=== PATIENT | male | born 1945 | race Caucasian/White ===

== ENCOUNTER 2020-09-01 12:57 | Emergency (ER) | payer MEDICARE, SELFPAY ==
[2020-09-01 13:09] VITALS: BP 161/102; PULSE 74; RESP 16; TEMP 35.9; O2SAT 98
--- NOTE | 2020-09-01 13:23 | ED.BACK ---
HPI - Back Pain/Injury General Chief Complaint: Back Pain/Injury Stated Complaint: lower back pain Time Seen by Provider: 09/01/20 13:09 Source: patient and RN notes reviewed Mode of arrival: ambulatory Limitations: no limitations History of Present Illness HPI Narrative: Patient presents today complaining of left-sided low back pain radiating to the left thigh x3 days. He reports visualizing spasms to the lateral thigh this morning while he was sitting in his chair at home. Pain increases with movement. Denies numbness or tingling in the genitals or legs. Denies loss of bowel or bladder control. Currently rates pain 05/18 and has been taking naproxen without much relief. Denies recent injury or trauma. MD elicited complaint: back pain Related Data Home Medications Medication Instructions Recorded Confirmed lisinopril 09/01/20 naproxen 09/01/20 Allergies Allergy/AdvReac Type Severity Reaction Status Date / Time Penicillins Allergy Mild Unverified 01/06/19 09:31 mushroom Allergy Unknown HIVES Verified 01/06/19 09:31 Review of Systems Review of Systems: Narrative: CONSTITUTIONAL: Denies body aches, fever, chills, or sweats. EYES: Denies visual changes, redness, or discharge. ENT: Denies rhinorrhea, congestion, sore throat, or otalgia. CARDIOVASCULAR: Denies chest pain, palpitations, or edema. RESPIRATORY: Denies cough or dyspnea. GASTROINTESTINAL: Denies abdominal pain, nausea, vomiting, or diarrhea. GENITOURINARY: Denies dysuria or hematuria. SKIN: Denies rash, itching, or wounds. MUSCULOSKELETAL: Denies joint pain, or myalgia. + Back pain NEUROLOGIC: Denies headache, numbness, tingling, or weakness. PSYCH: Denies depression or anxiety. [facility] Past Medical History Medical History (Updated 09/01/20 @ 15:14 by Liya Lynch, CUST[employer]S APPRAISER, ) Hypertension Rheumatoid arthritis Comments At time of signature, I have reviewed and agree with nursing past medical, surgical, social and family history unless otherwise noted. Please see nursing chart for further information. There is no relevant family history pertinent to the presenting complaint Exam Narrative: Exam Narrative: GENERAL: Well-appearing, well-nourished, and in no acute distress. HEAD: Normocephalic, atraumatic. EYES: EOMI. No redness or drainage. Conjunctivae normal. ENT: Mucous membranes pink and moist. NECK: Normal AROM. CHEST: No respiratory distress. MUSCULOSKELETAL: No bony tenderness of the spine. Left lumbar paraspinal muscle tenderness. Left SI joint tenderness, extending to the lateral hip and thigh. Distal sensation intact. Saddle sensation intact. Capillary refill normal. Pedal pulses normal. Foot push and pulls equal and strong. EXTREMITIES: Normal range of motion. No edema. SKIN: Warm, dry, no rash. Capillary refill normal. Normal skin turgor. NEURO: No focal deficits. Alert and oriented x3. Gait steady. PSYCH: Normal affect. No signs of depression or anxiety. Course Vital Signs Vital signs: Vital Signs Temperature 96.6 F L 09/01/20 13:09 Pulse Rate 74 09/01/20 13:09 Respiratory Rate 16 09/01/20 13:09 Blood Pressure 161/102 H 09/01/20 13:09 Pulse Oximetry 98 09/01/20 13:09 Temperature 96.6 F L 09/01/20 13:09 Pulse Rate 74 09/01/20 13:09 Respiratory Rate 16 09/01/20 13:09 Blood Pressure 161/102 H 09/01/20 13:09 Pulse Oximetry 98 09/01/20 13:09 Reviewed. Pt has been instructed to follow up with his PCP regarding his elevated blood pressure today. MDM - Back Pain/Injury Differential Diagnosis Differential diagnosis: Likely lumbar radiculopathy, sciatica, strain of lumbar region and other (Bulging disc, spinal stenosis) Critical Care Time Critical Care Time Critical Care Time: No Discharge Plan Discharge Clinical Impression: Low back pain Qualifiers: Chronicity: acute Back pain laterality: left Sciatica presence: with sciatica Sciatica laterality: sciatica of left side Jamie
== END 2020-09-01 13:35 | disposition home or self-care (01) ==
PROVIDERS: Emergency Provider Nurse Practitioner; PCP Family Medicine
DX: M54.42 Lumbago with sciatica, left side (principal); I10 Essential (primary) hypertension; M06.9 Rheumatoid arthritis, unspecified
CPT/HCPCS: 99213; G0463

== ENCOUNTER → 2020-09-07 13:23 | Outpatient (CLI) | payer MEDICARE, SELFPAY ==
--- NOTE | ~2020-09-07 | XR_ITS ---
XR lumbar spine 2-3V DATE: 09/07/2020 14:00 INDICATION: Low back pain, left lower extremity radiculopathy TECHNIQUE: AP, lateral, coned lateral lumbosacral views COMPARISON: 05/03/2015 lumbar spine FINDINGS: Diffuse osteopenia. There is grade 1 anterolisthesis at L2-3, also present on 05/03/2015. No fracture or bone destruction is evident. The included lower thoracic and lumbar pedicles are intac t. There is mild degenerative disc disease, relatively sparing L5-S1. The sacroiliac joints are intact. IMPRESSION: Diffuse osteopenia Mild degenerative change Stable mild grade 1 anterolisthesis at L2-3 Reviewed, dictated and finalized at location A.
== END ==
PROVIDERS: PCP Family Medicine; Visit Provider Family Medicine
DX: M54.16 Radiculopathy, lumbar region (principal); M85.88 Other specified disorders of bone density and structure, other site
CPT/HCPCS: 72100

== ENCOUNTER 2022-03-25 22:27 | Emergency (ER) | payer MEDICARE, SELFPAY ==
--- NOTE | ~2022-03-25 | XR_ITS ---
EXAMINATION: XR toe 2nd RT min 2V DATE: 03/25/2022 23:04 INDICATION: Right second toe injury TECHNIQUE: Dorsal plantar, lateral and 2 oblique views of the right second toe were obtained. COMPARISON: None FINDINGS: There is dorsal dislocation of the second distal phalanx with some proximal migration and overriding of the dorsal aspect of the head of the middle phalanx. No fracture identified. There appears to be h allux valgus along with hammertoe deformities at least the second and third toes. Advanced arthritis with erosive change at the first-fourth metatarsophalangeal joint consistent with provided history of rheumatoid arthritis. Additional erosions with less severe arthritis at the second proximal interpha langeal joint and at a few joints in the midfoot. IMPRESSION: 1. Dorsal dislocation of the right second distal interphalangeal joint without evident fracture. 2. Advanced arthritis with associated erosions at several of the metatarsophalangeal joints consisten t with provided history of rheumatoid arthritis. Reviewed, dictated and finalized at location A. IMPRESSION: 1. Dorsal dislocation of the right second distal interphalangeal joint without evident fracture. 2. Advanced arthritis with associated erosions at several of the metatarsophala ngeal joints consistent with provided history of rheumatoid arthritis.
[2022-03-25 22:48] VITALS: BP 130/78; PULSE 60; RESP 16; TEMP 36.1; O2SAT 100
[2022-03-26] MEDS: TETANUS,DIPHTHERIA,AC PERTUSSIS ADULT (0.5 ML) BOOSTRIX IM (03:49)
--- NOTE | 2022-03-26 05:29 | PC.NURSE ---
vrbo dr pérez - oren 4mg po odt norco 5/325 po stat
[2022-03-26] MEDS: ONDANSETRON HCL ODT 4 MG TABLET PO (05:34)
[2022-03-26] MEDS: HYDROcodone/acetaminophen (*CRX) 5-325 MG TABLET 1 TAB PO (05:34)
--- NOTE | 2022-03-26 06:02 | ED.LOWEXIN ---
HPI - Extremity Injury (Lower) General Chief Complaint: Extremity Injury, Lower Stated Complaint: toe broken Time Seen by Provider: 03/26/22 03:15 Source: patient and RN notes reviewed Mode of arrival: ambulatory Limitations: no limitations History of Present Illness HPI Narrative: This is a 76 year old female who presents for evaluation of right foot laceration. Patient states accidentally missed a step and got his toe caught. He is complaining of right second toe pain . He has a wound on under his toe that he is unable to stop bleeding. He denies hitting his head or LOC. He is unsure of his last tetanus shot. Related Data Home Medications Medication Instructions Recorded Confirmed naproxen 09/01/20 01/28/22 coenzyme [id number] E 100 mg-100 cap PO 01/14/21 01/28/22 unit capsule meclizine 25 mg tablet 25 mg PO BID PRN 01/14/21 01/28/22 Allergies Allergy/AdvReac Type Severity Reaction Status Date / Time Penicillins Allergy Mild Unknown Unverified 03/26/22 05:44 mushroom Allergy Unknown HIVES Verified 03/26/22 05:44 Review of Systems Review of Systems: All systems reviewed & are unremarkable except as noted in HPI and below PMFSH Past Medical History Medical History Hypertension Malignant neoplasm of prostate Rheumatoid arthritis Family History Family History Father Lung cancer Mother Heart disease Hypertension Social History Social History Smoking status: Never smoker Tobacco type: cigarettes Second hand tobacco smoke exposure: No Smoking end date: 11/09/70 Alcohol intake: current Drinks per week: 3 Substance use: never Substance use type: does not use Gender identity (if verbalized by the patient): Male Sexual Orientation (if Verbalized by the Patient): Straight or Heterosexual Exam Const: General: no acute distress and alert Orientation/consciousness: patient oriented x3 Eyes: EOM: EOMs intact bilaterally Resp: Effort & Inspection: normal respiratory effort Neuro: General: patient oriented x3 and moves all extremities Extrem: Other: patient with rheumatoid arthritis , patient with swan deformities to toes, there is 1 cm laceration under right 2nd toe and 1 cm laceration under right 3rd toe. Right second toe has distal deformity according to patient Psych: Mental Status: mental status grossly normal Affect: normal affect Course Reevaluation(s) Reevaluation #1: I repaired patient;s 2 toe lacerations. He was given tetanus. I reduced right second toe deformity Date: 03/26/22 Time: 06:07 Vital Signs Vital signs: Vital Signs Temperature 97 F L 03/25/22 22:48 Pulse Rate 60 03/25/22 22:48 Respiratory Rate 16 03/25/22 22:48 Blood Pressure 130/78 03/25/22 22:48 Pulse Oximetry 100 03/25/22 22:48 Temperature 97.7 F 03/26/22 06:12 Pulse Rate 52 L 03/26/22 06:12 Respiratory Rate 16 03/25/22 22:48 Blood Pressure 128/81 03/26/22 06:12 Pulse Oximetry 97 03/26/22 06:12 Procedures Laceration Laceration 1: Date: 03/26/22 Time: 06:08 Site: other (second toe) Side (If applicable): right Size (cm): 1 Description: flap Depth: simple, single layer Local Anesthetic: bupivacaine 0.25% ====== Skin Level ====== ====== Subcutaneous Layer ====== ====== Muscle Layer ====== ====== Tendon Layer ====== MDM - Extremity Injury (Lower) Imaging Data Attestation: I personally reviewed and interpreted this imaging study as follows: My impression: right second toe- there appears to be toe dislocation or fracture distally Discharge Plan Discharge Clinical Impression: Laceration of toe of right foot, Dislocation of toe, right, open Patient Disposition: Home, Self-Care Condition: Sta
--- NOTE | 2022-03-26 06:08 | PC.NURSE ---
SWATHI received from Dr. Cardoza to bandage foot and place in post-op shoe. Foot bandaged and shoe given at this time.
[2022-03-26 06:12] VITALS: BP 128/81; PULSE 52; TEMP 36.5; O2SAT 97
== END 2022-03-26 06:44 | disposition home or self-care (01) ==
PROVIDERS: Emergency Provider General Practice; PCP Family Medicine
DX: S91.114A Laceration without foreign body of right lesser toe(s) without damage to nail, initial encounter (principal); S93.104A Unspecified dislocation of right toe(s), initial encounter; I10 Essential (primary) hypertension; Z85.46 Personal history of malignant neoplasm of prostate; Z23 Encounter for immunization; W23.1XXA Caught, crushed, jammed, or pinched between stationary objects, initial encounter
CPT/HCPCS: 73660; 90471; 90715; 99283; A9270

== ENCOUNTER 2022-09-10 09:47 | Outpatient (CLI) | payer MEDICARE, SELFPAY ==
--- NOTE | ~2022-09-10 | CT_ITS ---
EXAMINATION: CT abdomen pelvis wo con DATE: 09/10/2022 10:06 INDICATION: Low abdominal pain. TECHNIQUE: Computed tomography (CT) of the abdomen and pelvis was performed without intravenous contr ast. Automated exposure control and iterative reconstruction technique were employed. The dose-length product was 445.33 mGy-cm. COMPARISON: None. FINDINGS: The visualized portions of the lung bases demonstrate mild atelectasis. There is mild bronc hiectasis bilaterally. No pleural effusion. The heart size is normal. No pericardial effusion. There is a small sliding hiatal hernia. The liver, gallbladder, spleen, pancreas, adrenal glands, and kidne ys are normal. There is no urolithiasis. The bladder is distended. The prostate is mildly enlarged. T here are bilateral inguinal hernias containing fat. There are scattered diverticula in the colon. The re is fat stranding adjacent to the sigmoid colon, consistent with diverticulitis. There is a punctat e focus of free gas near the sigmoid colon. There are no dilated loops of bowel. The appendix is norm al. There are no pathologically enlarged lymph nodes. There is no free intraperitoneal fluid. There i s moderate lumbar spondylosis. IMPRESSION: 1. Sigmoid diverticulitis with microperforation. No drainable abscess. Reviewed, dictated and finalized at location A.
== END 2022-09-10 09:48 | disposition home or self-care (01) ==
PROVIDERS: PCP Family Medicine; Visit Provider Family Medicine
DX: K57.20 Diverticulitis of large intestine with perforation and abscess without bleeding (principal)
CPT/HCPCS: 74176

== ENCOUNTER 2022-10-08 14:28 | Outpatient (CLI) | payer MEDICARE, SELFPAY ==
--- NOTE | ~2022-10-08 | CT_ITS ---
EXAMINATION: CT abdomen pelvis w con DATE: 10/08/2022 15:13 INDICATION: LLQ pain, recent diverticulitis TECHNIQUE: Computed tomography (CT) of the abdomen and pelvis was performed with 100 mL Omnipaque-350 intravenous contrast. Automated exposure control and iterative reconstruction technique were employe d. The dose-length product was 319.13 mGy-cm. COMPARISON: 09/10/2022. FINDINGS: Lower thorax: Small hiatal hernia. Liver: Normal. Biliary/Gallbladder: Gallbladder is normal. No bile duct dilation. Pancreas: No mass or duct dilation. Spleen: Normal. Adrenals:No mass. Kidneys: No mass, stone, or hydronephrosis. GI tract: Distal esophageal and gastric wall edema. No small or large bowel dilation. Segmental wall thickening of the mid/distal sigmoid with surrounding inflammatory change. 4.7 x 3.2 x 4.6 cm rim-enh ancing fluid and gas collection nestled between the posterior aspect of the sigmoid, left psoas muscl e, and left common iliac artery. A small rim-enhancing fluid collection measuring 1.7 x 2.1 x 1.9 cm adjacent to the sigmoid, slightly anterior and inferior to the other collection, between the inferior aspect of the sigmoid and the bladder. It is possible the two collections communicate, but this is n ot definitively demonstrated. Normal appendix. Mesentery/Peritoneum: No ascites, mass, or free air. Retroperitoneum: No mass. Atherosclerotic abdominal aortic and/or arterial calcifications. Pelvis: Mild bladder wall thickening likely due to outlet compromise from prostatomegaly. Soft Tissues: Uncomplicated bilateral fat-containing inguinal hernias. Left hydrocele. Bones: No acute osseous finding. IMPRESSION: 1. Esophagitis/gastritis. 2. Worsening wall thickening and inflammatory change of the mid/distal sigmoid colon, with adjacent a bscess collections measuring 4.7 cm and 1.9 cm. Communication between the two collections is unclear. Reviewed, dictated and finalized at location K. N EQUIPMENT SUPERVISOR IMPRESSION: 1. Esophagitis/gastritis. 2. Worsening wall thickening and inflammatory change of the mid/distal sigmoid colon, with adjacent abscess collections measuring 4.7 cm and 1.9 cm. Communica tion between the two collections is unclear.
[2022-10-08 15:06] LABS: Estimated Glomerular Filt Rate > 60
== END 2022-10-08 14:29 | disposition home or self-care (01) ==
LOC: ANHIMG 14:29
PROVIDERS: PCP Family Medicine; Visit Provider Physician Assistant
DX: K20.90 Esophagitis, unspecified without bleeding (principal); K29.70 Gastritis, unspecified, without bleeding
CPT/HCPCS: 74177; Q9967

== ENCOUNTER 2022-10-08 17:27 | Inpatient (IN) | payer MEDICARE, SELFPAY ==
--- NOTE | ~2022-10-08 | CT_ITS ---
EXAMINATION: CT guide absc cath placement DATE: 10/09/2022 14:44 INDICATION: Perisigmoid abscess. TECHNIQUE: The procedure including the risks, benefits, and alternatives was discussed with the patie nt. Risks discussed included bleeding and infection. The patient understood the risks and benefits an d agreed to proceed. The patient was confirmed to be receiving appropriate antibiotic coverage. The skin overlying the abdomen was prepped and draped in usual sterile fashion. Anesthetic was administe red with 1% lidocaine subcutaneously. Moderate sedation was achieved with 2 mg Versed IV and 150 mcg fentanyl IV. An 18 gauge trochar needle was inserted into the perisigmoid abscess with CT guidance. T he needle was exchanged over a wire for 6 Liberian, 8 Liberian, and 9 Liberian dilators and then for an 8.5 Liberian pigtail catheter. The catheter was stitched to the skin, and a sterile dressing was applied. The mA was adjusted according to patient size. Iterative reconstruction technique was employed. The d ose-length product was 428.97 mGy-cm. There were no immediate complications. FINDINGS: CT images demonstrate the catheter within the perisigmoid abscess. 7 mL fluid was aspirated for testing. IMPRESSION: 1. Successful CT-guided perisigmoid abscess drainage. 2. 7 mL opaque, george fluid was sent for aerobic and anaerobic cultures. Reviewed, dictated and finalized at location A. RN RETAIL
[2022-10-08 17:57] VITALS: BMI 22.1
--- NOTE | 2022-10-08 18:01 | PC.NURSE ---
This patient, [facility], was admitted to Medical Room 343-01. Patient/family oriented to hospital policies and general routines including ID bracelet, bed and alarms, visiting hours, pain management, procedures, bathroom and other care routines, personal items, smoking policy, room service/diet, and visiting hours. Information on how to activate the Rapid Response Team has been discussed. Patient/Family are encouraged to report perceived risks to care and to ask questions if they do not understand what they are told or what they should do.
--- NOTE | 2022-10-08 18:45 | PM.IMHP ---
H&P: HPI History of Present Illness Date/Time: 10/08/22 18:45 Chief Complaint: Diverticulitis with abscess. Narrative: This is a pleasant 77-year-old male with hypertension and prostate cancer which is being closely monitored who is being directly admitted to the medical floor from the radiology waiting room for further treatment and evaluation after he was found to have worsening wall thickening and inflammatory changes of the mid/distal sigmoid colon with adjacent abscess collections after being diagnosed with sigmoid diverticulitis with microperforation on CT scan dated 09/10/2022 for which he has been on 2 rounds of ciprofloxacin and metronidazole as an outpatient. His pain is diffusely throughout the lower quadrant but is more isolated to the left lower quadrant on exam; it does not radiate significantly. His appetite has not been good and he has been trying to eat a bland diet (toast, chicken noodle soup, Jell-O) to avoid worsening pain. He has not noticed any blood or mucus in the stools and he reports a formed stool this morning though not in significant quantities. He denies fever, chills, sweats, nausea, and vomiting. Review of Systems Review of Systems: Twelve systems were reviewed. He takes Aleve as needed for pain, sometimes Tylenol. He is been diagnosed with prostate cancer which is being monitored by active surveillance at this time. He has lost some weight in the past 1 week. Except as documented, all systems were reviewed and are negative. [facility] Past Medical History Medical History (Updated 10/08/22 @ 22:27 by Marjan Mendieta PA-C) Hypertension Malignant neoplasm of prostate Rheumatoid arthritis Surgical History Surgical History (Updated 10/08/22 @ 22:24 by Marjan Mendieta PA-C) No history of previous surgery Family History Family History Father Lung cancer Mother Heart disease Hypertension Social History Social History (Updated 10/08/22 @ 22:25 by Marjan Mendieta PA-C) Social History: Surrogate medical decision maker: Fabi Rinaldi, spouse. Code status: Full code. Smoking packs per day: 1 Smoking cigarettes per day: 20.0 Years smoked: 7 Smoking pack-years: 7.00 Smoking status: Former smoker Tobacco type: cigarettes Second hand tobacco smoke exposure: Yes Smoking end date: 11/09/70 Alcohol intake: former Drinks per week: 2 Substance use: never Substance use type: does not use Lack of Transportation: No Lack of Food: Never True Current Housing: I Have Housing Concerned About Future Housing: No Difficulty Paying Gas/Electric Bills: No Difficulty Paying for Meds: No Currently Unemployed: No Education: Associate Degree Difficulty w/ Childcare or Family Care: No Additional living arrangements comments: The patient lives with his in [place]. Additional occupation/education comments: Retired. Spiritual care concerns: No Meds Home Medications and Allergies Home Medications Medication Instructions Recorded Confirmed Type lisinopril 20 mg tablet 20 mg PO DAILY #90 tabs 07/01/22 10/08/22 Rx ciprofloxacin HCl 500 mg tablet 500 mg PO Q12H #20 tabs 10/06/22 10/08/22 Rx (Cipro) metronidazole 500 mg tablet 500 mg PO TID #30 tabs 10/06/22 10/08/22 Rx Allergies Allergy/AdvReac Type Severity Reaction Status Date / Time Penicillins Allergy Mild Unknown Verified 10/08/22 12:54 mushroom Allergy Unknown HIVES Verified 10/08/22 12:54 Exam Const: Other: Nontoxic-appearing male in the semi-Heck position in bed. Weight: 72.2 kilograms. BMI: 22.2. HENMT: Other: Normocephalic, atraumatic. Nares pain bilaterally. Tacky mucous membranes. Eyes: Other: Wearing corrective lenses. Pupils are reactive. Extraocular motions intact. Sclerae anicteric. Neck: Other: Supple. Resp: Other: Respirations are nonlabored and lungs are clear to auscultation.
[2022-10-08 18:57] LABS: Basophils Percent Auto 0.2 % (0.2-1.2); Eosinophils Absolute Auto 0.1 K/mm3 (0-0.3); Eosinophils Percent Auto 1.5 % (0-4.4); Hematocrit 39.9 % (42.0-52.0); Hemoglobin 13.6 g/dL (14.0-18.0); Immature Granulocyte Absolute 0.03 K/mm3 (0.00-0.031); Immature Granulocyte Percent A 0.3 % (0-0.5); Lymphocytes Absolute Auto 1.55 K/mm3 (0.9-3.2); Lymphocytes Percent Auto 17.8 % (18.3-44.2); Mean Corpuscular HGB Conc 34.1 g/dl (32-36); Mean Corpuscular Hemoglobin 31.4 pg (26-34); Mean Corpuscular Volume 92.1 fl (80-100); Monocytes Absolute Auto 0.6 K/mm3 (0.1-0.6); Neutrophils Absolute Auto 6.4 K/mm3 (1.3-6.7); Neutrophils Percent Auto 73.2 % (45.5-73.1); Platelet Count Result 317 k/mm3 (150-375); Red Blood Count 4.33 M/mm3 (4.6-6.20); Red Cell Distribution Width 11.6 % (11.5-14.5); White Blood Count 8.7 K/mm3 (4.5-10.0)
[2022-10-08 19:11] LABS: Alanine Aminotransferase 17 U/L (6-50); Albumin Level 3.8 g/dL (3.5-5.1); Alkaline Phosphatase 72 U/L (38-126); Anion Gap 9 mmol/L (8-16); Aspartate Amino Transferase 22 U/L (17-59); Bilirubin,Total 0.4 mg/dL (0.2-1.3); Blood Urea Nitrogen 7 mg/dL (9-20); Calcium 8.5 mg/dL (8.4-10.2); Carbon Dioxide 26 mmol/L (22-30); Chloride 99 mmol/L (98-107); Estimated CRCL calculation 69 ml/min; Estimated Glomerular Filt Rate > 60; Glucose 93 mg/dL (65-110); Potassium 4.2 mmol/L (3.4-5.0); Sodium 134 mmol/L (137-145)
[2022-10-08] MEDS: metroNIDAZOLE 500 MG/ISO 100ML 500 MG/100 ML BAG 100 MG IVPB (19:52)
[2022-10-08] MEDS: ACETAMINOPHEN 325 MG TABLET 650 MG PO (21:02)
[2022-10-08 22:00] VITALS: BP 125/69; PULSE 69; RESP 16; TEMP 36.7; O2SAT 99
[2022-10-09] VITALS (20 sets, daily range): BP systolic 99–139; BP diastolic 57–87; PULSE 48–98; RESP 13–18; TEMP 36.5–37.1; O2SAT 96–100; BMI 22.1
[2022-10-09] MEDS: metroNIDAZOLE 500 MG/ISO 100ML 500 MG/100 ML BAG 100 MG IVPB ×4 (00:06→18:18)
[2022-10-09] MEDS: SODIUM CHLORIDE 0.9% IV 1,000 ML 100 ML IV CONT (00:06)
[2022-10-09] MEDS: ACETAMINOPHEN 325 MG TABLET 650 MG PO (04:57)
[2022-10-09 08:33] LABS: INR 1.2; Prothrombin Time 14.6 Seconds (11.1-14.7)
[2022-10-09] MEDS: HYDROcodone/acetaminophen (*CRX) 5-325 MG TABLET 1 TAB PO (09:45)
[2022-10-09] MEDS: lisinopriL 20 MG TABLET PO (09:45)
--- NOTE | 2022-10-09 10:42 | PM.CNGS ---
Assessment and Plan Assessment and plan (1) Abscess of sigmoid colon due to diverticulitis: Code(s): K57.20 - Diverticulitis of large intestine with perforation and abscess without bleeding Status: Acute Assessment and Plan: The patient had sigmoid diverticulitis with microperforation that was treated with a 10-day course of oral antibiotics and had recurrent symptoms. His imaging was reviewed and the CT scan from yesterday showed worsening inflammation of the sigmoid colon with now a diverticular abscess measuring up to 4.7 cm. There is also a smaller fluid collection that is anterior and inferior to the larger collection, but unclear if these are connected. I discussed the patient's case and plan with Dr. Haider, and he would like to proceed with CT-guided percutaneous drainage of the larger diverticular abscess in Radiology today if amenable to drainage. We have ordered coags this morning as well and discussed this procedure with the patient. He was started on IV levofloxacin and metronidazole given his penicillin allergy. Agree with continuing these antibiotics. Continue NPO status, IV fluids, and analgesics as needed. (2) Hypertension: Code(s): I10 - Essential (primary) hypertension Status: Acute Assessment and Plan: Lisinopril restarted. BP stable. Management per Hospitalist. (3) Rheumatoid arthritis: Code(s): M06.9 - Rheumatoid arthritis, unspecified Status: Acute Assessment and Plan: Not currently following with a Deli Slicer. He takes naproxen as needed, but no other medications to control his RA. (4) Malignant neoplasm of prostate: Code(s): C61 - Malignant neoplasm of prostate Status: Acute Assessment and Plan: Prostate cancer currently being monitored. Plan Thank you for allowing us to see the patient in consultation and we will continue to follow along with you. History of Present Illness Consult details Consult date: 10/09/22 Reason for consult: other (Sigmoid diverticulitis with abscess) Requesting physician: Marjan Mendieta PA-C Narrative: This is a 77-year-old man with hypertension and prostate cancer which is being monitored. He was directly admitted last night to the medical floor from the radiology department for treatment of diverticulitis with abscess. He initially saw his PCP 1 month ago with a 2-3 week history of intermittent lower abdominal pain and bloating. He had an outpatient CT scan of the abdomen and pelvis without contrast on 09/10/2022, which showed sigmoid diverticulitis with microperforation and no drainable abscess. He was started on ciprofloxacin and metronidazole for 10 days. He reports taking the medications as prescribed. His abdominal pain and symptoms were improving and nearly resolved. Then, about 1 week ago he began having recurrent symptoms with lower abdominal pain. He additionally has been complaining of back pain, which he noticed after having some vomiting with his first episode of pain. He has been taking Tylenol for his back pain. He saw his PCP yesterday for the recurrent abdominal pain and they sent him for a CT scan of the abdomen and pelvis with contrast. This showed worsening wall thickening and inflammatory change of the mid/distal sigmoid colon with adjacent abscess collections measuring 4.7 cm x 1.9 cm, and esophagitis/gastritis. He was directly admitted to the hospitalist service. Our service has been consulted for surgical evaluation of the diverticulitis with abscess. Labs were drawn last night and were unremarkable. He is now seen on the medical floor. He is still having a significant amount of lower abdominal pain and back pain. He feels lying in the bed has he had his back pain worse. He has only taken Tylenol for the pain, but was asking for a [place] when I was done evaluating him. No nausea or vomiting. Reports his bowels have been moving normally with his last bowel movement yesterday. He has h
--- NOTE | 2022-10-09 13:29 | WPDMODSED ---
Moderate Sedation Note-Pt Data Patient Data Diagnosis: Perisigmoid abscess. Present Complaint: Perisigmoid abscess. Procedure to be performed/Plan: CT-guided perisigmoid abscess drainage. Allergies Allergy/AdvReac Type Severity Reaction Status Date / Time Penicillins Allergy Mild Unknown Verified 10/08/22 12:54 mushroom Allergy Unknown HIVES Verified 10/08/22 12:54 Home Medications Medication Instructions Recorded Confirmed Type lisinopril 20 mg tablet 20 mg PO DAILY #90 tabs 07/01/22 10/08/22 Rx ciprofloxacin HCl 500 mg tablet 500 mg PO Q12H #20 tabs 10/06/22 10/08/22 Rx (Cipro) metronidazole 500 mg tablet 500 mg PO TID #30 tabs 10/06/22 10/08/22 Rx Current Medications: Active Medications Acetaminophen (Acetaminophen 325 Mg Tablet) 650 mg PO Q4H PRN PRN Reason: Mild Pain (1-3) or Fever Last Admin: 10/09/22 04:57 Dose: 650 mg Hydrocodone Bitart/Acetaminophen (Hydrocodone/Acetaminophen (*Crx) 5-325 Mg Tablet) 1 tab PO Q4H PRN PRN Reason: Moderate Pain (4-6) Last Admin: 10/09/22 09:45 Dose: 1 tab Famotidine (Famotidine 20 Mg/2 Ml Vial) 20 mg IV PUSH Q12HR [facility] Levofloxacin/Dextrose (Levaquin 750 Mg/D5w 150 Ml) 750 mg in 150 mls @ 100 mls/hr IVPB Q24H [facility] Last Infusion: 10/08/22 22:30 Dose: Infused Metronidazole (Flagyl 500 Mg/Iso Soln 100 Ml) 500 mg in 100 mls @ 100 mls/hr IVPB Q6H [facility] Last Admin: 10/09/22 12:27 Dose: 100 mls/hr Lisinopril (Lisinopril 20 Mg Tablet) 20 mg PO DAILY [facility] Last Admin: 10/09/22 09:45 Dose: 20 mg Morphine Sulfate (Morphine Sulfate (*Crx) 2 Mg/Ml Inj) 2 mg IV PUSH Q4H PRN PRN Reason: Pain Rated 7-10 Sedation/Anesthesia: No previous sedation/anesthesia problems (including family history). [facility] Past Medical History Medical History (Updated 10/09/22 @ 10:59 by ROLADNO Smith) Hypertension Malignant neoplasm of prostate Rheumatoid arthritis Surgical History Surgical History No history of previous surgery Family History Family History Father Lung cancer Mother Heart disease Hypertension Social History Social History Social History: Surrogate medical decision maker: Fabi Rinaldi, spouse. Code status: Full code. Smoking packs per day: 1 Smoking cigarettes per day: 20.0 Years smoked: 7 Smoking pack-years: 7.00 Smoking status: Former smoker Tobacco type: cigarettes Second hand tobacco smoke exposure: Yes Smoking end date: 11/09/70 Alcohol intake: former Drinks per week: 2 Substance use: never Substance use type: does not use Lack of Transportation: No Lack of Food: Never True Current Housing: I Have Housing Concerned About Future Housing: No Difficulty Paying Gas/Electric Bills: No Difficulty Paying for Meds: No Currently Unemployed: No Education: Associate Degree Difficulty w/ Childcare or Family Care: No Additional living arrangements comments: The patient lives with his in [place]. Additional occupation/education comments: Retired. Spiritual care concerns: No Mod Sed Physical Exam Physical Exam Pre Procedural Exam: Normal: Airway, Lungs, Heart Rate and Heart Rhythm and Variation: Abdomen (Tenderness pelvis.) Hours since solid foods: 12 Hours since liquid intake: 12 Mallampati Classification: class 1 Internal Medicine - PN: Obj Da Vital Signs Vital Signs: Vital Signs - 24 hr 10/08/22 20:00 10/08/22 22:00 10/09/22 06:00 Temperature 36.7 C 37.1 C Pulse Rate 69 83 Respiratory Rate 16 16 Blood Pressure 125/69 119/70 Pulse Oximetry 99 100 Oxygen Delivery Room Air 10/09/22 09:30 Temperature Pulse Rate Respiratory Rate Blood Pressure Pulse Oximetry Oxygen Delivery Room Air Intake/Output Intake/Output: Intake & Output 10/06/22 10/07/22 10/08/22 10/09/22 23:5
--- NOTE | 2022-10-09 15:10 | SUR.PHASEII ---
drain was successfully placed in CT. RN gave moderate sedation medication for comfort. Report called to 3 med RN and transport took pt back to room 343 via wheelchair
--- NOTE | 2022-10-09 16:05 | PM.IMPN ---
Progress Note: A&P Assessment and Plan (1) Abscess of sigmoid colon due to diverticulitis: Code(s): K57.20 - Diverticulitis of large intestine with perforation and abscess without bleeding Status: Acute Assessment and Plan: General surgery consulted. Appreciate their input. CT-guided drainage today Continue IV Levaquin and Flagyl (2) Hypertension: Code(s): I10 - Essential (primary) hypertension Status: Acute Assessment and Plan: Continue lisinopril. Monitor Subjective Date/time seen: 10/09/22 16:05 No change overnight Review of Systems Review of Systems: All systems reviewed & are unremarkable except as noted in HPI and below Exam Const: General: no acute distress and uncomfortable Nutritional Appearance: average body habitus Orientation/consciousness: patient oriented x3 HENMT: Head: normocephalic and atraumatic Ears: hearing grossly normal bilaterally Mouth: Yes moist mucous membranes Eyes: General: appearance normal, both eyes and all related structures Pupils: Equal, round and reactive pupils present EOM: EOMs intact bilaterally Neck: Neck: normal visual inspection and full ROM Resp: Effort & Inspection: no respiratory distress Auscultation: clear to auscultation bilaterally Cardio: Rate: regular rate Rhythm: regular rhythm Heart sounds: S1 normal heart sound present and S2 normal heart sound present Peripheral pulses: Peripheral pulses 2+ throughout GI: Inspection: non-distended and no scars GI Palp: Yes Soft to palpation, Yes Tenderness to palpation present (GI) (across the entire lower abdomen), No Guarding due to palpation present (GI), Yes No hepatosplenomegaly present, No Hernia present and No Rebound tenderness present Percussion: Yes normal to percussion Auscultation: normal bowel sounds Rectal Exam: deferred Skin: General skin exam: normal color Rashes: no rashes Neuro: General: moves all extremities and no focal motor deficits Cranial nerves: Yes CN's II-XII intact bilaterally Speech: normal speech Motor exam (neuro): 5/5 motor strength present throughout Extrem: General: normal to inspection and no edema Psych: Mental Status: mental status grossly normal Affect: normal affect Attitude: cooperative Insight: Good insight present (Psych) Judgement: Good judgement present (Psych) Objective Data Vital Signs Vital Signs: Vital Signs - 24 hr 10/08/22 20:00 10/08/22 22:00 10/09/22 06:00 Temperature 98.0 F 98.8 F Pulse Rate 69 83 Respiratory Rate 16 16 Blood Pressure 125/69 119/70 Pulse Oximetry 99 100 Oxygen Delivery Room Air Oxygen Flow Rate 10/09/22 09:30 10/09/22 13:33 10/09/22 13:37 Temperature Pulse Rate 62 65 Respiratory Rate 16 17 Blood Pressure 130/87 119/64 Pulse Oximetry 100 100 Oxygen Delivery Room Air Nasal Cannula Nasal Cannula Oxygen Flow Rate 2 2 10/09/22 14:05 10/09/22 14:45 10/09/22 13:40 Temperature Pulse Rate 62 56 L 65 Respiratory Rate 14 14 17 Blood Pressure 114/69 139/74 115/66 Pulse Oximetry 100 100 100 Oxygen Delivery Nasal Cannula Room Air Nasal Cannula Oxygen Flow Rate 2 2 10/09/22 13:45 10/09/22 13:50 10/09/22 13:55 Temperature Pulse Rate 98 97 64 Respiratory Rate 18 16 15 Blood Pressure 136/77 131/85 102/63 Pulse Oximetry 100 100 100 Oxygen Delivery Nasal Cannula Nasal Cannula Nasal Cannula Oxygen Flow Rate 2 2 2 10/09/22 14:00 10/09/22 14:10 10/09/22 14:15 Temperature Pulse Rate 61 63 62 Respiratory Rate 16 18 13 Blood Pressure 114/75 132/72 125/70 Pulse Oximetry 100 100 100 Oxygen Delivery Nasal Cannula Nasal Cannula Nasal Cannula Oxygen Flow Rate 2 2 2 10/09/22 14:20 10/09/22 14:25 10/09/22 14:30 Temperature Pulse Rate 48 L 50 L 62 Respiratory Rate 14 13 13 Blood Pressure 122/60 110/65 114/73 Pulse Oximetry 100 100 100 Oxygen Delivery Nasal Cannula Nasal Cannula Nasal Cannula Oxygen Flow Rate 2 2 2 10/09/22 14:35 10/09/22 14:40
[2022-10-09] MEDS: FAMOTIDINE 20 MG/2 ML VIAL IV PUSH (20:39)
[2022-10-10] MEDS: metroNIDAZOLE 500 MG/ISO 100ML 500 MG/100 ML BAG 100 MG IVPB ×3 (00:01→12:12)
[2022-10-10] MEDS: ACETAMINOPHEN 325 MG TABLET 650 MG PO ×2 (00:05→18:05)
[2022-10-10 05:22] VITALS: BP 106/57; PULSE 62; RESP 20; TEMP 36.6; O2SAT 98
[2022-10-10] MEDS: lisinopriL 20 MG TABLET PO (09:12)
[2022-10-10] MEDS: FAMOTIDINE 20 MG/2 ML VIAL IV PUSH ×2 (09:12→20:12)
--- NOTE | 2022-10-10 10:18 | PM.IMPN ---
Progress Note: A&P Assessment and Plan (1) Abscess of sigmoid colon due to diverticulitis: Code(s): K57.20 - Diverticulitis of large intestine with perforation and abscess without bleeding Status: Acute Assessment and Plan: General surgery consulted. Appreciate their input. Patient underwent CT-guided drainage. Drainage Catheter on left side of the abdomen. Has serosanguineous fluid Continue IV Levaquin and Flagyl Further recommendations per General surgery (2) Hypertension: Code(s): I10 - Essential (primary) hypertension Status: Acute Assessment and Plan: Continue lisinopril. Monitor Subjective Date/time seen: 10/10/22 10:18 Patient has drainage catheter on the left side. Denies any complaints at this time Review of Systems Review of Systems: All systems reviewed & are unremarkable except as noted in HPI and below Exam Const: General: no acute distress Nutritional Appearance: average body habitus Orientation/consciousness: patient oriented x3 HENMT: Head: normocephalic and atraumatic Ears: hearing grossly normal bilaterally Mouth: Yes moist mucous membranes Eyes: General: appearance normal, both eyes and all related structures Pupils: Equal, round and reactive pupils present EOM: EOMs intact bilaterally Neck: Neck: normal visual inspection and full ROM Resp: Effort & Inspection: no respiratory distress Auscultation: clear to auscultation bilaterally Cardio: Rate: regular rate Rhythm: regular rhythm Heart sounds: S1 normal heart sound present and S2 normal heart sound present Peripheral pulses: Peripheral pulses 2+ throughout GI: Inspection: non-distended and no scars GI Palp: Yes Soft to palpation and Yes No hepatosplenomegaly present Percussion: Yes normal to percussion Auscultation: normal bowel sounds Rectal Exam: deferred Other: Drainage catheter on the left side Skin: General skin exam: normal color Rashes: no rashes Neuro: General: moves all extremities and no focal motor deficits Cranial nerves: Yes CN's II-XII intact bilaterally Speech: normal speech Motor exam (neuro): 5/5 motor strength present throughout Extrem: General: normal to inspection and no edema Psych: Mental Status: mental status grossly normal Affect: normal affect Attitude: cooperative Insight: Good insight present (Psych) Judgement: Good judgement present (Psych) Objective Data Vital Signs Vital Signs: Vital Signs - 24 hr 10/09/22 13:33 10/09/22 13:37 10/09/22 14:05 Temperature Pulse Rate 62 65 62 Respiratory Rate 16 17 14 Blood Pressure 130/87 119/64 114/69 Pulse Oximetry 100 100 100 Oxygen Delivery Nasal Cannula Nasal Cannula Nasal Cannula Oxygen Flow Rate 2 2 2 10/09/22 14:45 10/09/22 13:40 10/09/22 13:45 Temperature Pulse Rate 56 L 65 98 Respiratory Rate 14 17 18 Blood Pressure 139/74 115/66 136/77 Pulse Oximetry 100 100 100 Oxygen Delivery Room Air Nasal Cannula Nasal Cannula Oxygen Flow Rate 2 2 10/09/22 13:50 10/09/22 13:55 10/09/22 14:00 Temperature Pulse Rate 97 64 61 Respiratory Rate 16 15 16 Blood Pressure 131/85 102/63 114/75 Pulse Oximetry 100 100 100 Oxygen Delivery Nasal Cannula Nasal Cannula Nasal Cannula Oxygen Flow Rate 2 2 2 10/09/22 14:10 10/09/22 14:15 10/09/22 14:20 Temperature Pulse Rate 63 62 48 L Respiratory Rate 18 13 14 Blood Pressure 132/72 125/70 122/60 Pulse Oximetry 100 100 100 Oxygen Delivery Nasal Cannula Nasal Cannula Nasal Cannula Oxygen Flow Rate 2 2 2 10/09/22 14:25 10/09/22 14:30 10/09/22 14:35 Temperature Pulse Rate 50 L 62 67 Respiratory Rate 13 13 14 Blood Pressure 110/65 114/73 125/69 Pulse Oximetry 100 100 100 Oxygen Delivery Nasal Cannula Nasal Cannula Nasal Cannula Oxygen Flow Rate 2 2 2 10/09/22 14:40 10/09/22 14:55 10/09/22 15:49 Temperature 97.7 F Pulse Rate 60 56 L 60 Respiratory Rate 17 13 14 Blood Pressure 125/72 99/57 L 124/61 Pulse Oximetry 98 100 100 Oxygen D
--- NOTE | 2022-10-10 11:35 | PM.PNGS ---
Progress Note: A&P Assessment and Plan (1) Abscess of sigmoid colon due to diverticulitis: Code(s): K57.20 - Diverticulitis of large intestine with perforation and abscess without bleeding Status: Acute Assessment and Plan: cultures still pending. Continue Levaquin and metronidazole IV antibiotics. Improved after abscess drainage performed yesterday. Would be nice to have culture results back before discharge. Continue present treatment today. Subjective Subjective Date/Time Seen: 10/10/22 11:35 Post Op day: 1 ( CT-guided drainage catheter placed 10/09/2022) Patient reports: feels better, pain is less, bowel movement and afebrile Interval history: eating well. Placed on regular diet by hospitalist. Review of Systems Review of Systems: All systems reviewed & are unremarkable except as noted in HPI and below ( HPI and those items noted below) Constitutional: Constitutional: Denies chills and Denies fever(s) Cardiovascular: Cardiovascular: Denies chest pain, Denies diaphoresis, Denies dyspnea and Denies paroxysmal nocturnal dyspnea Respiratory: Respiratory: Denies chest congestion, Denies cough and Denies dyspnea Integumentary/Breasts: Skin/Breast: Denies lesions and Denies rash Exam Const: General: comfortable and no acute distress; No confusion Orientation/consciousness: patient oriented x3 and No confusion GI: Inspection: incision ( serosanguineous fluid in drainage catheter, 20 cc since midnight) GI Palp: Yes Soft to palpation, Yes Tenderness to palpation present (GI) ( mostly around catheter site), No Guarding due to palpation present (GI) and No Rebound tenderness present Auscultation: normal bowel sounds Neuro: General: patient oriented x3, no focal motor deficits and No confusion Extrem: General: no calf tenderness and no edema Psych: Affect: normal affect Insight: Good insight present (Psych) Judgement: Good judgement present (Psych) Objective Data Vital Signs Vital Signs: Vital Signs - 24 hr 10/09/22 13:33 10/09/22 13:37 10/09/22 14:05 Temperature Pulse Rate 62 65 62 Respiratory Rate 16 17 14 Blood Pressure 130/87 119/64 114/69 Pulse Oximetry 100 100 100 Oxygen Delivery Nasal Cannula Nasal Cannula Nasal Cannula Oxygen Flow Rate 2 2 2 10/09/22 14:45 10/09/22 13:40 10/09/22 13:45 Temperature Pulse Rate 56 L 65 98 Respiratory Rate 14 17 18 Blood Pressure 139/74 115/66 136/77 Pulse Oximetry 100 100 100 Oxygen Delivery Room Air Nasal Cannula Nasal Cannula Oxygen Flow Rate 2 2 10/09/22 13:50 10/09/22 13:55 10/09/22 14:00 Temperature Pulse Rate 97 64 61 Respiratory Rate 16 15 16 Blood Pressure 131/85 102/63 114/75 Pulse Oximetry 100 100 100 Oxygen Delivery Nasal Cannula Nasal Cannula Nasal Cannula Oxygen Flow Rate 2 2 2 10/09/22 14:10 10/09/22 14:15 10/09/22 14:20 Temperature Pulse Rate 63 62 48 L Respiratory Rate 18 13 14 Blood Pressure 132/72 125/70 122/60 Pulse Oximetry 100 100 100 Oxygen Delivery Nasal Cannula Nasal Cannula Nasal Cannula Oxygen Flow Rate 2 2 2 10/09/22 14:25 10/09/22 14:30 10/09/22 14:35 Temperature Pulse Rate 50 L 62 67 Respiratory Rate 13 13 14 Blood Pressure 110/65 114/73 125/69 Pulse Oximetry 100 100 100 Oxygen Delivery Nasal Cannula Nasal Cannula Nasal Cannula Oxygen Flow Rate 2 2 2 10/09/22 14:40 10/09/22 14:55 10/09/22 15:49 Temperature 36.5 C Pulse Rate 60 56 L 60 Respiratory Rate 17 13 14 Blood Pressure 125/72 99/57 L 124/61 Pulse Oximetry 98 100 100 Oxygen Delivery Nasal Cannula Room Air Oxygen Flow Rate 2 10/09/22 22:00 10/10/22 05:22 10/10/22 09:00 Temperature 36.8 C 36.6 C Pulse Rate 81 62 Respiratory Rate 16 20 Blood Pressure 115/66 106/57 L Pulse Oximetry 96 98 Oxygen Delivery Room Air Oxygen Flow Rate Intake/Output Intake/Output: Intake & Output 10/07/22 10/08/22 10/09/22 10/10/22 23:59 23:59 23:59 23:59 Intake Total 250 1590 590 Output Total 2
[2022-10-10 14:00] VITALS: BP 102/61; PULSE 84; RESP 18; TEMP 37.1; O2SAT 98
[2022-10-10] MEDS: metroNIDAZOLE 250 MG TABLET 500 MG PO ×2 (14:23→20:11)
[2022-10-10 19:30] VITALS: BP 116/66; PULSE 79; RESP 18; TEMP 36.6; O2SAT 96
[2022-10-10] MEDS: levoFLOXacin 750 MG TABLET PO (20:11)
[2022-10-10] MEDS: HYDROcodone/acetaminophen (*CRX) 5-325 MG TABLET 1 TAB PO (22:55)
[2022-10-11 05:05] VITALS: BP 111/65; PULSE 59; RESP 18; TEMP 36.6; O2SAT 100
[2022-10-11] MEDS: metroNIDAZOLE 250 MG TABLET 500 MG PO (06:31)
[2022-10-11 08:50] VITALS: O2SAT 99
[2022-10-11] MEDS: lisinopriL 20 MG TABLET PO (08:50)
[2022-10-11] MEDS: FAMOTIDINE 20 MG/2 ML VIAL IV PUSH (08:50)
--- NOTE | 2022-10-11 11:27 | PM.PNGS ---
Progress Note: A&P Assessment and Plan (1) Abscess of sigmoid colon due to diverticulitis: Code(s): K57.20 - Diverticulitis of large intestine with perforation and abscess without bleeding Status: Acute Assessment and Plan: doing well. Patient will need to go home with his pigtail catheter drain in place. Continue IV antibiotics and low-fiber diet. If sensitivities on Staph aureus are back tomorrow, can discharge on oral antibiotics. I will see him in follow-up in the office in approximately 2 weeks. We did have a brief discussion regarding follow-up colonoscopy as well as potentially performing laparoscopic sigmoidectomy electively once the infection has healed. Subjective Subjective Date/Time Seen: 10/11/22 11:27 Patient reports: no new complaints, feels better, pain is less ( mostly at site of pigtail catheter), bowel movement and afebrile Review of Systems Review of Systems: All systems reviewed & are unremarkable except as noted in HPI and below ( HPI and those items noted below) Constitutional: Constitutional: Denies chills and Denies fever(s) Cardiovascular: Cardiovascular: Denies chest pain, Denies diaphoresis, Denies dyspnea and Denies paroxysmal nocturnal dyspnea Respiratory: Respiratory: Denies chest congestion, Denies cough and Denies dyspnea Integumentary/Breasts: Skin/Breast: Denies lesions and Denies rash Exam Const: General: comfortable and no acute distress; No confusion Orientation/consciousness: patient oriented x3 and No confusion GI: Inspection: incision ( pigtail catheter with serosanguineous drainage) GI Palp: Yes Soft to palpation, Yes Tenderness to palpation present (GI) ( at pigtail catheter site only), No Guarding due to palpation present (GI) and No Rebound tenderness present Auscultation: normal bowel sounds Neuro: General: patient oriented x3, no focal motor deficits and No confusion Extrem: General: no calf tenderness and no edema Psych: Affect: normal affect Insight: Good insight present (Psych) Judgement: Good judgement present (Psych) Objective Data Vital Signs Vital Signs: Vital Signs - 24 hr 10/10/22 14:00 10/10/22 19:30 10/11/22 05:05 Temperature 37.1 C 36.6 C 36.6 C Pulse Rate 84 79 59 L Respiratory Rate 18 18 18 Blood Pressure 102/61 116/66 111/65 Pulse Oximetry 98 96 100 Intake/Output Intake/Output: Intake & Output 10/08/22 10/09/22 10/10/22 10/11/22 23:59 23:59 23:59 23:59 Intake Total 250 1590 1070 240 Output Total 20 10 Balance 250 1590 1050 230 Meds/Results Medications: Active Medications Generic Name Dose Route Start Last Admin Trade Name Freq PRN Reason Stop Dose Admin Acetaminophen 650 mg 10/08/22 17:27 10/10/22 18:05 Acetaminophen 325 Mg Tablet PO 650 mg Q4H PRN Administration Mild Pain (1-3) or Fever Hydrocodone Bitart/Acetaminophen 1 tab 10/08/22 17:27 10/10/22 22:55 Hydrocodone/Acetaminophen (*Crx) 5-325 Mg Tablet PO 1 tab Q4H PRN Administration Moderate Pain (4-6) Enoxaparin Sodium 40 mg 10/12/22 09:00 Enoxaparin 40 Mg/0.4 Ml Syringe SUB-Q DAILY [facility] Enoxaparin Sodium 40 mg 10/11/22 11:24 Enoxaparin 30 Mg/0.3 Ml Syringe SUB-Q 10/11/22 11:25 ONCE ONE Levofloxacin/Dextrose 750 mg in 150 mls @ 100 mls/hr 10/11/22 11:25 Levaquin 750 Mg/D5w 150 Ml IVPB Q24H [facility] Metronidazole 500 mg in 100 mls @ 100 mls/hr 10/11/22 11:25 Flagyl 500 Mg/Iso Soln 100 Ml IVPB Q8H [facility] Lisinopril 20 mg 10/09/22 09:00 10/11/22 08:50 Lisinopril 20 Mg Tablet PO 20 mg DAILY [facility] Administration Morphine Sulfate 2 mg 10/08/22 17:27 Morphine Sulfate (*Crx) 2 Mg/Ml Inj IV PUSH Q4H PRN Pain Rated 7-10 Radiology Results: ITS Impressions Catheter Placement CT 10/09/22 15:17 IMPRESSION: 1. Successful CT-guided perisigmoid abscess drainage. 2. 7 mL opaque, george fluid was sent for aerobic and anaerobic cultures. Labs Labs
[2022-10-11] MEDS: ENOXAPARIN 40 MG/0.4 ML SYRINGE SUB-Q (13:48)
[2022-10-11 14:00] VITALS: BP 104/61; PULSE 78; RESP 16; TEMP 36.3; O2SAT 99
[2022-10-11] MEDS: metroNIDAZOLE 500 MG/ISO 100ML 500 MG/100 ML BAG 100 MG IVPB ×2 (14:50→21:23)
--- NOTE | 2022-10-11 16:47 | PM.IMPN ---
Progress Note: A&P Assessment and Plan (1) Abscess of sigmoid colon due to diverticulitis: Code(s): K57.20 - Diverticulitis of large intestine with perforation and abscess without bleeding Status: Acute Assessment and Plan: General surgery consulted. Appreciate their input. Patient underwent CT-guided drainage. Drainage Catheter on left side of the abdomen. Has serosanguineous fluid Continue IV Levaquin and Flagyl Further recommendations per General surgery 10/11/2022 interval history, patient with diverticulitis of large intestine with perforation and abscess was seen by surgery service had an abscess drained and port placed, abscess culture is growing Staph aureus patient is being treated with levofloxacin and Flagyl, will follow-up on a sensitivity and further recommendation to follow, the patient states is feeling much better compared to when he arrived denies any abdominal pain nausea or vomiting fever or chills. (2) Hypertension: Code(s): I10 - Essential (primary) hypertension Status: Acute Assessment and Plan: Continue lisinopril. Monitor Subjective Date/time seen: 10/11/22 16:47 10/11/2022 interval history, patient with diverticulitis of large intestine with perforation and abscess was seen by surgery service had an abscess drained and port placed, abscess culture is growing Staph aureus patient is being treated with levofloxacin and Flagyl, will follow-up on a sensitivity and further recommendation to follow, the patient states is feeling much better compared to when he arrived denies any abdominal pain nausea or vomiting fever or chills. Review of Systems Review of Systems: All systems reviewed & are unremarkable except as noted in HPI and below Exam Narrative: Patient is comfortable, NAD HEENT: eyes are clear and none icteric LUNGS:CTA HEART: RR S1S2 ABD: BS+, Soft and nontender Lower extremities: no edema SKIN: nonjaundiced Neuro: grossly intact. Objective Data Vital Signs Vital Signs: Vital Signs - 24 hr 10/10/22 19:30 10/11/22 05:05 10/11/22 14:00 Temperature 98 F 98 F 97.3 F L Pulse Rate 79 59 L 78 Respiratory Rate 18 18 16 Blood Pressure 116/66 111/65 104/61 Pulse Oximetry 96 100 99 Oxygen Delivery 10/11/22 08:50 Temperature Pulse Rate Respiratory Rate Blood Pressure Pulse Oximetry 99 Oxygen Delivery Room Air Intake/Output Intake/Output: Intake & Output 10/08/22 10/09/22 10/10/22 10/11/22 23:59 23:59 23:59 23:59 Intake Total 250 1590 1070 480 Output Total 20 10 Balance 250 1590 1050 470 Meds/Results Medications: Active Medications Generic Name Dose Route Start Last Admin Trade Name Freq PRN Reason Stop Dose Admin Acetaminophen 650 mg 10/08/22 17:27 10/10/22 18:05 Acetaminophen 325 Mg Tablet PO 650 mg Q4H PRN Administration Mild Pain (1-3) or Fever Hydrocodone Bitart/Acetaminophen 1 tab 10/08/22 17:27 10/10/22 22:55 Hydrocodone/Acetaminophen (*Crx) 5-325 Mg Tablet PO 1 tab Q4H PRN Administration Moderate Pain (4-6) Enoxaparin Sodium 40 mg 10/12/22 09:00 Enoxaparin 40 Mg/0.4 Ml Syringe SUB-Q DAILY [facility] Famotidine 20 mg 10/11/22 21:00 Famotidine 20 Mg Tablet PO Q12HR [facility] Levofloxacin/Dextrose 750 mg in 150 mls @ 100 mls/hr 10/11/22 21:00 Levaquin 750 Mg/D5w 150 Ml IVPB Q24H [facility] Metronidazole 500 mg in 100 mls @ 100 mls/hr 10/11/22 14:00 10/11/22 14:50 Flagyl 500 Mg/Iso Soln 100 Ml IVPB 100 mls/hr Q8HR [facility] Administration Lisinopril 20 mg 10/09/22 09:00 10/11/22 08:50 Lisinopril 20 Mg Tablet PO 20 mg DAILY [facility] Administration Morphine Sulfate 2 mg 10/08/22 17:27 Morphine Sulfate (*Crx) 2 Mg/Ml Inj IV PUSH Q4H PRN Pain Rated 7-10 Radiology Results: ITS Impressions Catheter Placement CT 10/09/22 15:17 IMPRESSION: 1[address] CT-guided perisigmoid abscess drainage. 2. 7 mL opaque, george flu
[2022-10-11 20:11] VITALS: BP 119/65; PULSE 85; RESP 18; TEMP 36.8; O2SAT 97
[2022-10-11] MEDS: FAMOTIDINE 20 MG TABLET PO (21:25)
[2022-10-11] MEDS: HYDROcodone/acetaminophen (*CRX) 5-325 MG TABLET 1 TAB PO (21:27)
[2022-10-12 05:17] VITALS: BP 107/57; PULSE 65; RESP 20; TEMP 36.4; O2SAT 97
[2022-10-12] MEDS: metroNIDAZOLE 500 MG/ISO 100ML 500 MG/100 ML BAG 100 MG IVPB (05:17)
[2022-10-12] MEDS: HYDROcodone/acetaminophen (*CRX) 5-325 MG TABLET 1 TAB PO (05:23)
[2022-10-12 06:41] LABS: Hematocrit 38.7 % (42.0-52.0); Hemoglobin 12.8 g/dL (14.0-18.0); Mean Corpuscular HGB Conc 33.1 g/dl (32-36); Mean Corpuscular Hemoglobin 30.6 pg (26-34); Mean Corpuscular Volume 92.6 fl (80-100); Mean Platelet Volume 8.8 fl (7.4-10.4); Platelet Count Result 319 k/mm3 (150-375); Red Blood Count 4.18 M/mm3 (4.6-6.20); Red Cell Distribution Width 11.9 % (11.5-14.5); White Blood Count 9.3 K/mm3 (4.5-10.0)
[2022-10-12 06:51] LABS: Anion Gap 8 mmol/L (8-16); Blood Urea Nitrogen 8 mg/dL (9-20); Calcium 8.3 mg/dL (8.4-10.2); Carbon Dioxide 25 mmol/L (22-30); Chloride 98 mmol/L (98-107); Estimated CRCL calculation 69 ml/min; Estimated Glomerular Filt Rate > 60; Glucose 93 mg/dL (65-110); Potassium 3.9 mmol/L (3.4-5.0); Sodium 131 mmol/L (137-145)
--- NOTE | 2022-10-12 08:44 | PM.DS ---
DS: Admitting Diagnosis Discharge Date 10/12/2022 Admitting Diagnosis Diverticulitis with abscess. DS: Discharge Diagnosis Discharge Diagnosis (1) Abscess of sigmoid colon due to diverticulitis: Code(s): K57.20 - Diverticulitis of large intestine with perforation and abscess without bleeding Status: Acute Assessment and Plan: General surgery consulted. Appreciate their input. Patient underwent CT-guided drainage. Drainage Catheter on left side of the abdomen. Has serosanguineous fluid Continue IV Levaquin and Flagyl Further recommendations per General surgery 10/11/2022 interval history, patient with diverticulitis of large intestine with perforation and abscess was seen by surgery service had an abscess drained and port placed, abscess culture is growing Staph aureus patient is being treated with levofloxacin and Flagyl, will follow-up on a sensitivity and further recommendation to follow, the patient states is feeling much better compared to when he arrived denies any abdominal pain nausea or vomiting fever or chills. (2) Hypertension: Code(s): I10 - Essential (primary) hypertension Status: Acute Assessment and Plan: Continue lisinopril. Monitor DS: Summary Hospital Course Reason for hospitalization: Diverticulitis with abscess. Narrative: This is a pleasant 77-year-old male with hypertension and prostate cancer which is being closely monitored who is being directly admitted to the medical floor from the radiology waiting room for further treatment and evaluation after he was found to have worsening wall thickening and inflammatory changes of the mid/distal sigmoid colon with adjacent abscess collections after being diagnosed with sigmoid diverticulitis with microperforation on CT scan dated 09/10/2022 for which he has been on 2 rounds of ciprofloxacin and metronidazole as an outpatient. His pain is diffusely throughout the lower quadrant but is more isolated to the left lower quadrant on exam; it does not radiate significantly. His appetite has not been good and he has been trying to eat a bland diet (toast, chicken noodle soup, Jell-O) to avoid worsening pain. He has not noticed any blood or mucus in the stools and he reports a formed stool this morning though not in significant quantities. He denies fever, chills, sweats, nausea, and vomiting. Hospital Course: ?patient with? diverticulitis of large intestine with perforation and abscess was seen by surgery service had an abscess drained and port placed, abscess culture is growing Staph aureus patient is being treated with levofloxacin and Flagyl, will follow-up on a sensitivity and further recommendation to follow, the patient states is feeling much better compared to when he arrived denies any abdominal pain nausea or vomiting fever or chills. the abscess culture showed Staph aureus MRSA, discussed with Dr. Haider general surgeon recommended to discharge the patient on clindamycin and Cipro for 5 days and will follow-up on the cleaning and 1 week, patient clinically stable will discharge the patient today. Time Spent with Patient Time attestation: Total time spent providing and/or coordinating discharge services: Exam Narrative: Patient is comfortable, NAD HEENT: eyes are clear and none icteric LUNGS:CTA HEART: RR S1S2 ABD: BS+, Soft and nontender Lower extremities: no edema SKIN: nonjaundiced Neuro: grossly intact. DS: Data Data Completed and Pending Labs on day of discharge: Labs from last 24 hours 10/12/22 10/12/22 06:29 06:29 WBC 9.3 RBC 4.18 L Hgb 12.8 L Hct 38.7 L MCV 92.6 MCH 30.6 MCHC 33.1 RDW 11.9 Plt Count 319 MPV 8.8 Sodium 131 L Potassium 3.9 Chloride 98 Carbon Dioxide 25 Anion Gap 8 BUN 8 L Creatinine 0.80 Estim Creat Clear Calc 69 Estimated GFR > 60 Glucose 93 Calcium 8.3 L Magnesium 2.0 Preliminary micro results at discharge 10/09/22 1
[2022-10-12] MEDS: lisinopriL 20 MG TABLET PO (08:50)
[2022-10-12] MEDS: ENOXAPARIN 40 MG/0.4 ML SYRINGE SUB-Q (08:51)
[2022-10-12] MEDS: FAMOTIDINE 20 MG TABLET PO (08:57)
--- NOTE | 2022-10-12 09:46 | PM.PNGS ---
Progress Note: A&P Assessment and Plan (1) Abscess of sigmoid colon due to diverticulitis: Code(s): K57.20 - Diverticulitis of large intestine with perforation and abscess without bleeding Status: Acute Assessment and Plan: Continues to improve. Cultures showed MRSA. I discussed antibiotic coverage with Dr. Stewart, hospitalist. We will continue clindamycin for 5 days and ciprofloxacin for 5 days after discharge. I will see him on this week. He will empty his drain daily and record output. Probably DC pigtail catheter when I see him in the office. Continue low-fiber diet after discharge. Subjective Subjective Date/Time Seen: 10/12/22 09:46 Patient reports: no new complaints, pain is less, bowel movement and afebrile Review of Systems Review of Systems: All systems reviewed & are unremarkable except as noted in HPI and below (HPI and those items noted below) Constitutional: Constitutional: Denies chills and Denies fever(s) Cardiovascular: Cardiovascular: Denies chest pain, Denies diaphoresis, Denies dyspnea and Denies paroxysmal nocturnal dyspnea Respiratory: Respiratory: Denies chest congestion, Denies cough and Denies dyspnea Integumentary/Breasts: Skin/Breast: Denies lesions and Denies rash Exam GI: Inspection: incision (Pigtail catheter drain with serosanguineous output), scaphoid and other (10 cc per pigtail yesterday) GI Palp: Yes Soft to palpation, Yes Tenderness to palpation present (GI) (Pigtail catheter site), No Hernia present and No Palpable mass present Auscultation: normal bowel sounds Objective Data Vital Signs Vital Signs: Vital Signs - 24 hr 10/11/22 14:00 10/11/22 20:11 10/12/22 05:17 Temperature 36.3 C L 36.8 C 36.4 C Pulse Rate 78 85 65 Respiratory Rate 16 18 20 Blood Pressure 104/61 119/65 107/57 L Pulse Oximetry 99 97 97 Intake/Output Intake/Output: Intake & Output 10/09/22 10/10/22 10/11/22 10/12/22 23:59 23:59 23:59 23:59 Intake Total 1590 1070 920 Output Total 20 10 Balance 1590 1050 910 Meds/Results Medications: Active Medications Generic Name Dose Route Start Last Admin Trade Name Freq PRN Reason Stop Dose Admin Acetaminophen 650 mg 10/08/22 17:27 10/10/22 18:05 Acetaminophen 325 Mg Tablet PO 650 mg Q4H PRN Administration Mild Pain (1-3) or Fever Hydrocodone Bitart/Acetaminophen 1 tab 10/08/22 17:27 10/12/22 05:23 Hydrocodone/Acetaminophen (*Crx) 5-325 Mg Tablet PO 1 tab Q4H PRN Administration Moderate Pain (4-6) Enoxaparin Sodium 40 mg 10/12/22 09:00 10/12/22 08:51 Enoxaparin 40 Mg/0.4 Ml Syringe SUB-Q 40 mg DAILY JUDI Administration Famotidine 20 mg 10/11/22 21:00 10/12/22 08:57 Famotidine 20 Mg Tablet PO 20 mg Q12HR JUDI Administration Metronidazole 500 mg in 100 mls @ 100 mls/hr 10/11/22 14:00 10/12/22 05:17 Flagyl 500 Mg/Iso Soln 100 Ml IVPB 100 mls/hr Q8HR JUDI Administration Clindamycin Phosphate 900 mg in 50 mls @ 50 mls/hr 10/12/22 08:30 Cleocin 900 Mg/D5w 50 Ml IVPB Q8HR JUDI Lisinopril 20 mg 10/09/22 09:00 10/12/22 08:50 Lisinopril 20 Mg Tablet PO 20 mg DAILY JUDI Administration Morphine Sulfate 2 mg 10/08/22 17:27 Morphine Sulfate (*Crx) 2 Mg/Ml Inj IV PUSH Q4H PRN Pain Rated 7-10 Radiology Results: ITS Impressions Catheter Placement CT 10/09/22 15:17 IMPRESSION: 1. Successful CT-guided perisigmoid abscess drainage. 2. 7 mL opaque, george fluid was sent for aerobic and anaerobic cultures. Labs Labs: Laboratory Results - last 24 hr 10/12/22 10/12/22 06:29 06:29 WBC 9.3 RBC 4.18 L Hgb 12.8 L Hct 38.7 L MCV 92.6 MCH 30.6 MCHC 33.1 RDW 11.9 Plt Count 319 MPV 8.8 Sodium 131 L Potassium 3.9 Chloride 98 Carbon Dioxide 25 Anion Gap 8 BUN 8 L Creatinine 0.80 Estim Creat Clear Calc 69 Estimated GFR > 60 Glucose 93 Calcium 8.3 L Magnesium
--- NOTE | 2022-10-12 11:08 | PC.NURSE ---
Discharge medications called in to [facility] pharmacy in [place] ([address]). RX called in for Clindamycin HCI 600 mg po q8H for a total of 30 tablets. This was a correction from the written script, total quantity was adjusted from [address] Haider.
== END 2022-10-12 11:50 | disposition home or self-care (01) | DRG 392 ==
PROVIDERS: Physician Assistant; Radiology Diagnostic Radiology; Surgery; Admitting Provider Student in an Organized Health Care Education/Training Program; PCP Family Medicine; Visit Provider Family Medicine
PROC: 0D9N30Z Drainage of Sigmoid Colon with Drainage Device, Percutaneous Approach (ICD-10-PCS; principal; 2022-10-09 13:30)
DX: K57.20 Diverticulitis of large intestine with perforation and abscess without bleeding (principal); B95.62 Methicillin resistant Staphylococcus aureus infection as the cause of diseases classified elsewhere; M06.9 Rheumatoid arthritis, unspecified; I10 Essential (primary) hypertension; C61 Malignant neoplasm of prostate; Z87.891 Personal history of nicotine dependence
CPT/HCPCS: 36415; 74177; 75989; 80048; 80053; 83735; 85025; 85027; 85610; 87040; 87070; 87075; 87147; 87181; 87186; 87205; A9270; C1729; C1769; J1650; J1956; J2250; J3010; J7030; J7040; Q9967

== ENCOUNTER 2022-10-29 12:05 | Outpatient (CLI) | payer MEDICARE, SELFPAY ==
--- NOTE | ~2022-10-29 | CT_ITS ---
Non-contrast CT scan of the Abdomen and Pelvis Clinical indication: Dysuria, colovesical fistula Technique: 5 mm axial scans were obtained through the abdomen and pelvis without intravenous or oral contrast. Dose reduction technique was used on this scan by utilizing automated exposure control and iterative reconstruction technique. The dose-length product (DLP) was 312.50 mGy-cm. COMPARISON: 10/08/2022 Findings: Images through the lung bases reveal no abnormalities. There is no evidence of renal or ureteral calculi. The kidneys and the ureters are nondilated. The liver, spleen, pancreas, gallbladder, and adrenals appear normal. There is no aortic aneurysm. There is no evidence of bowel obstruction. Again noted is wall thickening of the proximal to mid sigm oid colon with pericolonic inflammatory change, compatible with acute diverticulitis. There is a juan antonio colonic abscess which is significantly decreased in extent from prior exam, now measuring approximate ly 2.5 cm in maximum diameter, most inflammatory change present rather than fluid. Several small bubb les of extraluminal air persists. Inflammatory change abuts the superior urinary bladder wall, but no definite fistulous tract or air within the urinary bladder. Prostate gland and seminal vesicles are unremarkable. Impression: No definite evidence for colovesical fistula. If there is persistent clinical concern for this diagno sis, then consider CT cystogram to further evaluate. Sigmoid diverticulitis, with pericolonic abscess which is decreased in size/extent from prior exam. Reviewed, dictated and finalized at [facility]. DOWN HELPER Impression: No definite evidence for colovesical fistula. If there is persistent clinical c oncern for this diagnosis, then consider CT cystogram to further evaluate. Sigmoid diverticulitis, with pericolonic abscess which is decreased in size/ext ent from prior exam.
== END 2022-10-29 12:06 | disposition home or self-care (01) ==
PROVIDERS: PCP Family Medicine; Visit Provider Family Medicine
DX: K57.32 Diverticulitis of large intestine without perforation or abscess without bleeding (principal)
CPT/HCPCS: 74176

== ENCOUNTER 2022-12-01 07:11 | Outpatient (CLI) | payer MEDICARE, SELFPAY ==
--- NOTE | ~2022-12-01 | CT_ITS ---
EXAMINATION: CT abdomen pelvis w con DATE: 12/01/2022 08:23 INDICATION: Diverticulitis TECHNIQUE: Computed tomography (CT) of the abdomen and pelvis was performed with a total of 130 mL Om nipaque-350 intravenous contrast using a double-bolus technique with intervening 30 minute delay for simultaneous opacification of the renal parenchyma and renal collecting system. Automated exposure co ntrol and iterative reconstruction technique were employed. The dose-length product was 748.29 mGy-c m. COMPARISON: 09/10/2022, 10/08/2022 and 10/29/2022 FINDINGS: Lung bases are clear. Heart size is normal. Mitral annular calcification. No pericardial or pleural e ffusion. Small sliding-type hiatal hernia. Liver, gallbladder, spleen, pancreas and bilateral adrenal glands are normal. Normal kidneys with symmetric renal parenchymal enhancement and no hydronephrosis . Small portion of the bilateral mid and distal ureters are decompressed without discernible intralum inal contrast likely related to peristalsis. There is a thickened trabecular wall of the bladder purnima g with a few very small bladder diverticula which can be seen with chronic outlet obstruction. There is a filling defect which appears completely surrounded by contrast the bladder suggesting clot. Pros tatomegaly. Again seen is a tract of soft tissue density extending from the dome of the bladder to th e the posterior wall of the sigmoid colon likely representing residual scarring in the region of prio r diverticulitis which was competent by adjacent abscess formation evident on CT dated 10/08/2022. No evident abscess cavity in the current study. No evidence of extraluminal extension of the dense cont rast in the bladder to suggest a currently patent colovesical fistula. Moderate diverticulosis with s igmoid colon predominance. Normal appendix. No bowel obstruction. Trace amount of ascites scattered t hroughout the pelvis. No abscess or free intraperitoneal gas. Small bilateral fat-containing inguinal hernias. No pathologically enlarged abdominal or pelvic lymphadenopathy. Moderate lumbar spondylosis . IMPRESSION: 1. Residual tract of soft tissue density likely related to scarring extending between the bladder and the sigmoid colon at the site of prior diverticulitis which was complicated by pericolonic abscess f ormation. No current abscess or currently patent colovesical fistula. 2. Diffuse bladder wall thickening with trabeculated mucosal surface and a few very small bladder div erticula suggestive of chronic outlet obstruction from the enlarged prostate. Reviewed, dictated and finalized at [facility]. ETING RESEARCH ANALYST IMPRESSION: 1. Residual tract of soft tissue density likely related to scarring extending b etween the bladder and the sigmoid colon at the site of prior diverticulitis wh ich was complicated by pericolonic abscess formation. No current abscess or cur rently patent colovesical fistula. 2. Diffuse bladder wall thickening with trabeculated mucosal surface and a few very small bladder diverticula suggestive of chronic outlet obstruction from th e enlarged prostate.
[2022-12-01 07:46] LABS: Estimated Glomerular Filt Rate > 60
== END 2022-12-01 07:12 | disposition home or self-care (01) ==
PROVIDERS: PCP Family Medicine; Visit Provider Surgery
DX: K57.92 Diverticulitis of intestine, part unspecified, without perforation or abscess without bleeding (principal)
CPT/HCPCS: 74177; Q9967

== ENCOUNTER 2022-12-29 09:00 | Outpatient (NON) | payer MEDICARE, SELFPAY | END 2022-12-29 09:01 | disposition home or self-care (01) | LOC: ANHLAB 12-30 08:28 | PROVIDERS: PCP Family Medicine; Visit Provider Internal Medicine Gastroenterology | DX: K57.80 Diverticulitis of intestine, part unspecified, with perforation and abscess without bleeding (principal); D12.5 Benign neoplasm of sigmoid colon | CPT/HCPCS: 88305 ==

== ENCOUNTER 2022-12-29 11:25 | Day surgery (SDC) | payer MEDICARE, SELFPAY ==
[2022-12-11 08:09] VITALS: BMI 22.6
[2022-12-17 11:00] VITALS: BMI 23.1
--- NOTE | 2022-12-29 07:13 | WPDANESEPPF ---
Anes - Initial Pre Proc Eval Procedure: Operation Date: 12/29/22 13:30 Proposed Procedures p Diagnostic Colonoscopy - Bobo Ledesma MD Date/Time: 12/29/22 07:13 Surgeon: Bobo Ledesma MD Pre Op Diagnosis: Diverticulitis Patient Data Age: 77 Gender: M Height: 1.8 m Weight: 75 kg Allergies Allergy/AdvReac Type Severity Reaction Status Date / Time Penicillins Allergy Mild Unknown Verified 12/29/22 12:10 mushroom Allergy Unknown HIVES Verified 12/29/22 12:10 Home Medications Medication Instructions Recorded Confirmed Type lisinopril 20 mg tablet 20 mg PO DAILY #90 tabs 10/29/22 12/29/22 Rx erythromycin 500 mg tablet 1 g PO .COMPLEX #6 tabs 12/09/22 12/29/22 Rx metronidazole 500 mg tablet 500 mg PO .COMPLEX #3 tabs 12/09/22 12/29/22 Rx sodium,potassium,mag sulfates 17.5 See Rx Instructions PO .COMPLEX 12/11/22 12/29/22 Rx gram-3.13 gram-1.6 gram oral soln #354 mL (Suprep Bowel Prep Kit) acetaminophen 650 mg 650 mg PO Q8H PRN ARTHRITIS 12/17/22 12/29/22 History tablet,extended release Patient hx anesthesia problems: none Family hx anesthesia problems: none Results Review: All pre-operative results and documents have been reviewed as part of the pre-operative evaluation. [facility] Past Medical History Medical History Hypertension Malignant neoplasm of prostate Rheumatoid arthritis Surgical History Surgical History No history of previous surgery Family History Family History Father Lung cancer Mother Heart disease Hypertension Social History Social History Social History: Surrogate medical decision maker: Fabi Rinaldi, spouse. Code status: Full code. Smoking packs per day: 1 Smoking cigarettes per day: 20.0 Years smoked: 6 Smoking pack-years: 6.00 Smoking status: Former smoker Tobacco type: cigarettes Second hand tobacco smoke exposure: Yes Smoking end date: 11/09/70 Alcohol intake: former Drinks per week: 21 Alcohol use details: 3-4 BEERS PER DAY. QUIT 06/30 Substance use: never Substance use type: does not use Lack of Transportation: No Lack of Food: Never True Current Housing: I Have Housing Concerned About Future Housing: No Difficulty Paying Gas/Electric Bills: No Difficulty Paying for Meds: No Currently Unemployed: No Education: Associate Degree Difficulty w/ Childcare or Family Care: No Living arrangements: with family Additional living arrangements comments: The patient lives with his in [place]. Occupation/Education: retired Additional occupation/education comments: Retired. Spiritual care concerns: No Anes - Eval Final PreProcedure Day of Procedure 12/29/22 07:13 Patient weight: normal Heart: regular rate and rhythm Lungs: clear to auscultation and normal air movement Airway: Mallampati scale class II Neurological: alert and oriented Last oral intake: >/= 8 hours ASA classification: III Emergent: no Anesthetic plan: proceed Anesthesia type and monitoring: general GIVS and standard monitoring Results Review: All pre-operative results and documents have been reviewed as part of the pre-operative evaluation. Informed Consent: The patient's anesthetic plan and its attendant risks and benefits were discussed with the patient/family/POA. Questions were solicited and answers provided to the satisfaction of the patient/family/POA.
[2022-12-29 12:00] VITALS: BP 114/76; PULSE 84; RESP 20; TEMP 36.1; O2SAT 98
[2022-12-29] MEDS: LACTATED RINGERS 1,000 ML 150 ML IV CONT (12:06)
--- NOTE | 2022-12-29 12:06 | WPDHPUPDATE1 ---
History and Physical Update Update Date/Time: 12/29/22 12:06 History and Physical has been reviewed, including an updated exam of the patient. There are NO changes in the patient's condition. Risks, benefits, and alternatives have been discussed and questions answered. Patient agrees to proceed with procedure.
[2022-12-29 12:33] VITALS: BP 94/72; PULSE 63; RESP 18; O2SAT 100
[2022-12-29 12:43] VITALS: BP 109/68; PULSE 68; RESP 20; O2SAT 100
[2022-12-29 12:53] VITALS: BP 110/78; PULSE 64; RESP 18; O2SAT 100
--- NOTE | 2022-12-29 13:25 | WPDANESPN ---
Anes - Prog Note Post-Op Date/Time: 12/29/22 13:25 Cardiovascular status: normal Respiratory status: normal Airway patency: baseline Mental status: baseline Post-Op hydration status: normal Vital Signs: Last Vital Signs Temp 36.1 C L 12/29/22 12:00 Pulse 64 12/29/22 12:53 Resp 18 12/29/22 12:53 BP 110/78 12/29/22 12:53 Pulse Ox 100 12/29/22 12:53 O2 Del Method Room Air 12/29/22 12:53 Pain Score (VAS): 0 I/O: Intake & Output 12/28/22 12/29/22 12/29/22 23:59 07:59 15:59 Intake Total 840 Balance 840 Post-procedural complaints: none Patient Feedback: Patient satisfied with anesthetic care. Other Findings: Patient vital signs back to baseline. Patient denies nausea and vomiting. Patient's pain under control. Patient OK for discharge.
== END 2022-12-29 13:20 | disposition home or self-care (01) ==
PROVIDERS: PCP Family Medicine; Visit Provider Internal Medicine Gastroenterology
PROC: 0DJD8ZZ Inspection of Lower Intestinal Tract, Via Natural or Artificial Opening Endoscopic (ICD-10-PCS; CPT 45378; principal; 2022-12-29 13:30)
DX: K57.80 Diverticulitis of intestine, part unspecified, with perforation and abscess without bleeding (principal)
CPT/HCPCS: 45380

== ENCOUNTER 2023-01-05 11:47 | Outpatient (CLI) | payer MEDICARE, SELFPAY ==
--- NOTE | ~2023-01-05 | XR_ITS ---
Clinical Indication: Chest pain, diverticulitis PA and lateral views of the chest: Comparison: None Findings: The lungs are clear, without evidence of focal consolidation or pleural effusion. Cardiome diastinal silhouette is within normal limits. Bones and soft tissues are unremarkable. Impression: Normal chest. Reviewed, dictated and finalized at [facility]. OMER SUPPORT CONSULTANT Impression: Normal chest.
--- NOTE | 2023-01-05 12:47 | ECG_ITS ---
Measurements Intervals [place] Rate: 54 P: 65 ID: [id number] QRS: 4 QRSD: 102 T: 43 QT: 432 QTc: 410 Interpretive Statements SINUS BRADYCARDIA BASELINE ARTIFACT INCOMPLETE RIGHT BUNDLE BRANCH BLOCK BORDERLINE ECG NO PREVIOUS ECG AVAILABLE FOR COMPARISON Electronically Signed On 01-05-2023 14:40:56 DRILL PRESS OPERATOR HELPER by Shailesh Junior M.D.
[2023-01-05 13:46] LABS: Basophils Percent Auto 0.5 % (0.2-1.2); Eosinophils Absolute Auto 0.3 K/mm3 (0-0.3); Eosinophils Percent Auto 4.1 % (0-4.4); Hematocrit 44.5 % (42.0-52.0); Hemoglobin 14.3 g/dL (14.0-18.0); Immature Granulocyte Absolute 0.04 K/mm3 (0.00-0.031); Immature Granulocyte Percent A 0.5 % (0-0.5); Lymphocytes Absolute Auto 2.63 K/mm3 (0.9-3.2); Mean Corpuscular HGB Conc 32.1 g/dl (32-36); Mean Corpuscular Hemoglobin 29.8 pg (26-34); Mean Corpuscular Volume 92.7 fl (80-100); Monocytes Absolute Auto 0.4 K/mm3 (0.1-0.6); Monocytes Percent Auto 5.9 % (2.6-8.5); Neutrophils Absolute Auto 3.9 K/mm3 (1.3-6.7); Platelet Count Result 256 k/mm3 (150-375); Red Cell Distribution Width 14.1 % (11.5-14.5); White Blood Count 7.3 K/mm3 (4.5-10.0)
[2023-01-05 14:04] LABS: Anion Gap 6 mmol/L (8-16); Blood Urea Nitrogen 11 mg/dL (9-20); Carbon Dioxide 27 mmol/L (22-30); Chloride 102 mmol/L (98-107); Estimated Glomerular Filt Rate > 60; Glucose 60 mg/dL (65-110); Potassium 3.9 mmol/L (3.4-5.0); Sodium 135 mmol/L (137-145)
[2023-01-05 14:54] LABS: Appearance Urine Clear (Clear); Bilirubin Urine Negative (Negative); Blood Urine Negative (Negative); Color Urine Yellow (Yellow); Glucose Urine UA Negative (Negative); Ketones Urine Negative (Negative); Leukocyte Esterase Ur 2+ LEU/UL (Negative); Nitrate Urine Negative (Negative); Protein Urine Negative (Negative); Urobilinogen Urine 0.2 mg/dL (<2.0); pH Urine 6.5 (5.0-9.0)
[2023-01-05 15:02] LABS: Bacteria Urine Trace /hpf; RBC Urine 0-2 /hpf (0-2)
[2023-01-05 15:05] LABS: Add Urine Microscopic? YES
== END 2023-01-05 11:48 | disposition home or self-care (01) ==
PROVIDERS: PCP Family Medicine; Visit Provider Surgery
DX: K57.80 Diverticulitis of intestine, part unspecified, with perforation and abscess without bleeding (principal); I45.10 Unspecified right bundle-branch block
CPT/HCPCS: 36415; 71046; 80048; 81001; 85025; 86850; 86900; 86901; 87086; 93005

== ENCOUNTER 2023-01-14 12:57 | Inpatient (IN) | payer MEDICARE, SELFPAY ==
[2023-01-05 11:56] VITALS: BMI 23.1
--- NOTE | 2023-01-05 12:26 | PC.NURSE ---
Report to the Outpatient Waiting Room, entrance under the green pavilion located off [facility], at time __0600 on date _01/14/23 . Planned Procedure Time: _729 . Time changes happen often and if your time is changed the preop area will call you the afternoon before. - You and your visitor will be asked to self-screen and do not enter if you have any COVID symptoms. - Only one visitor is requested with a max of two and NO children visitors are allowed at this time. - The patient visitor may be requested to leave or wait in car when not with patient due to distancing restrictions. - A mask is optional within the hospital at this time. Patients may have clear liquids (water, carbonated beverages, clear teas, apple juice) until 3 hours prior to surgery with a maximum of 20 ounces. - No food from midnight until time of surgery - Infants may have breast milk until 4 hours before surgery, formula 6 hours prior to surgery. - Children will be allowed to drink immediately following surgery. If applicable, please bring a bottle or sippy cup to assist with drinking. Juice, water, soda, and popsicles are readily available. For infants on formula, please bring formula the day of surgery. Pacifiers are allowed. Take the following medications with a SIP of water the morning of surgery: ____NONE DO NOT STOP ANY OF YOUR OTHER PRESCRIPTION MEDICATIONS PRIOR TO SURGERY ?EXCEPT THE FOLLOWING Medications to discontinue per physician ___NONE HIBICLENS SHOWER DAY BEFORE AND MORNING OF SURGERY ENSURE BUNDLE PACK BOWEL PREP PER DR NOEL Please no make-up, nail bermudian, hairspray, perfume, deodorant, or body powder the day of surgery. No jewelry (including any body piercings) or valuables the day of surgery, leave them at home. Please take a shower or bath the night before, or the morning of, surgery with an antibacterial soap. Wear comfortable, loose fitting clothing. Children are encouraged to wear pajamas. - Jewelry must be removed prior to entering the operating room. Rings and piercings that are not removed may be cut off. - The hospital will not accept responsibility for valuables. - Please leave all valuables, including medications, at home the day of surgery. If you are going home after surgery, a licensed pile driver operator helper must drive you home. - NO public transportation without another adult if you receive anesthesia. - We recommend that an adult stay with you for 24 hours following discharge. - We also recommend that you do not drive, make important decision, drink alcoholic beverages, or take any drugs that were not prescribed by your health care provider for at least 24 hours after your discharge time. Follow any additional instructions given to you from your surgeon. If you or anyone in your household have experienced Covid symptoms in the past week, please notify your surgeon or the nurse liaison at the phone number below for possible testing. VERBAL AND WRITTEN instructions given to PATIENT and asked if any additional questions and then verbalized understanding. Patient advised to call surgeon office or pre surgery nurse liaison [phone] if any additional questions.
[2023-01-05 12:43] VITALS: BP 122/77; PULSE 67; RESP 18; TEMP 36.7; O2SAT 99
--- NOTE | 2023-01-13 13:25 | PM.IMHP ---
H&P: HPI History of Present Illness Date/Time: 01/13/23 13:25 Chief Complaint: Diverticulitis with abscess, sigmoid polyp Narrative: Patient is a 77-year-old man with rheumatoid arthritis, prostate cancer, and hypertension. He presented in September with evidence of diverticulitis and microperforation. Microperforation progressed and eventually developed an abscess. The abscess was percutaneously drained on 10/09/2022. Cultures grew MRSA. Patient was discharged on oral antibiotics and followed up in the office. The drain was eventually removed on 10/16/2022. The abscess did not further recur nor did the patient have to be rehospitalized for diverticulitis. He generally continued to improve but continued to have some lower abdominal pain and dysuria. He also noted a lot of bubbling in the toilet water after urination. He did not notice any pneumaturia or fecaluria. At his last office visit in December, he did notice some stringy cope material in the toilet after urinating. He has had CT scan of the abdomen pelvis without contrast as well as a CT scan of the abdomen and pelvis with double dose IV contrast looking for a colovesical fistula. None has ever been demonstrated. He has never had air in his urinary bladder on CT scan. Patient saw Dr. Bryant for his dysuria on 01/01/2023. He was found to have a urinary tract infection and incomplete bladder emptying. He was treated with ciprofloxacin. Patient also had a colonoscopy by Dr. Ledesma on 12/29/2022. In the sigmoid colon, besides extensive diverticulosis, a villous mucosal mass was seen. It was suspicious for malignancy. It was biopsied extensively but the biopsies only showed a tubular adenoma. Interestingly, patient had an MRI at [facility] for prostate cancer follow-up on 11/24/2022. The MRI showed an enhancing mass of the sigmoid that tethers the left side of the dome of the urinary bladder. Patient has had home bowel preparation and is taken to surgery at this time for hand access laparoscopic sigmoidectomy for both diverticulitis with abscess and the sigmoid mass. Urology has been consulted for placement of ureteral stents preoperatively as well as the potential for later consultation pending the results of the operative findings and possible urinary bladder fistula. Review of Systems Review of Systems: All systems reviewed & are unremarkable except as noted in HPI and below (HPI and those items noted below) Constitutional: Constitutional: Denies chills and Denies fever(s) Cardiovascular: Cardiovascular: Denies chest pain, Denies diaphoresis, Denies dyspnea and Denies paroxysmal nocturnal dyspnea Respiratory: Respiratory: Denies chest congestion, Denies cough and Denies dyspnea Integumentary/Breasts: Skin/Breast: Denies lesions and Denies rash PMFSH Past Medical History Medical History Hypertension Malignant neoplasm of prostate Rheumatoid arthritis Surgical History Surgical History No history of previous surgery Family History Family History Father Lung cancer Mother Heart disease Hypertension Social History Social History Social History: Surrogate medical decision maker: Fabi Rinaldi, spouse. Code status: Full code. Smoking packs per day: 1 Smoking cigarettes per day: 20.0 Years smoked: 6 Smoking pack-years: 6.00 Smoking status: Former smoker Tobacco type: cigarettes Second hand tobacco smoke exposure: Yes Smoking end date: 11/09/70 Alcohol intake: former Drinks per week: 21 Alcohol use details: QUIT DRINKG 06/2022. WOULD DRINK 3-4 BEERS DAILY Substance use: never Substance use type: does not use Lack of Transportation: No Lack of Food: Never True Current Housing: I Have Housing Concerned About Future Ho
[2023-01-14] VITALS (14 sets, daily range): BP systolic 101–121; BP diastolic 60–79; PULSE 66–90; RESP 12–16; TEMP 35.5–37.2; O2SAT 93–100; BMI 22.4
[2023-01-14] MEDS: LACTATED RINGERS 1,000 ML 30 ML IV CONT ×2 (06:15→11:50)
[2023-01-14] MEDS: ACETAMINOPHEN 500 MG TABLET 1000 MG PO (06:27)
[2023-01-14] MEDS: KETOROLAC 15 MG/ML VIAL (*BKC) IV PUSH (06:29)
[2023-01-14] MEDS: ALVIMOPAN 12 MG CAPSULE PO (07:00)
--- NOTE | 2023-01-14 07:05 | WPDURCON ---
Assessment and Plan Assessment and plan (1) Malignant neoplasm of prostate: Code(s): C61 - Malignant neoplasm of prostate Status: Chronic (2) Abscess of sigmoid colon due to diverticulitis: Code(s): K57.20 - Diverticulitis of large intestine with perforation and abscess without bleeding Status: Acute Assessment and Plan: Cystoscopy, bilateral ureteral catheterization Urology Consult Note HPI Date Seen: 01/14/23 Requesting Physician: Garfield Haider MD Primary Care Provider: Joseph Zhang MD Consult Narrative Narrative: Johny Rinaldi is a 77 year old male well known to me with a history of low risk prostate cancer who is on a course of active surveillance. Is a routine part of that active surveillance he underwent a prostate MRI 6 months following diagnosis. This revealed a sigmoid colon mass with possible diverticular abscess and colovesical fistula. He is now scheduled for colectomy and we have been asked to place preoperative ureteral catheters. He is aware the risks including, but not limited to, adverse cardiopulmonary events, ureteral injury and hematuria. Review of Systems Cardiovascular: Cardiovascular: Denies chest pain, Denies lightheadedness, Denies palpitations and Denies dyspnea Respiratory: Respiratory: Denies dyspnea Gastrointestinal: Gastrointestinal: Denies diarrhea, Denies nausea and Denies vomiting Genitourinary: Genitourinary: Denies hematuria and Denies dysuria Endocrine: Endocrine: Denies palpitations PMFSH Past Medical History Medical History Hypertension Malignant neoplasm of prostate Rheumatoid arthritis Surgical History Surgical History No history of previous surgery Family History Family History Father Lung cancer Mother Heart disease Hypertension Social History Social History Social History: Surrogate medical decision maker: Fabi Rinaldi, spouse. Code status: Full code. Smoking packs per day: 1 Smoking cigarettes per day: 20.0 Years smoked: 6 Smoking pack-years: 6.00 Smoking status: Former smoker Tobacco type: cigarettes Second hand tobacco smoke exposure: Yes Smoking end date: 11/09/70 Alcohol intake: former Drinks per week: 21 Alcohol use details: QUIT DRINKG 06/2022. WOULD DRINK 3-4 BEERS DAILY Substance use: never Substance use type: does not use Lack of Transportation: No Lack of Food: Never True Current Housing: I Have Housing Concerned About Future Housing: No Difficulty Paying Gas/Electric Bills: No Difficulty Paying for Meds: No Currently Unemployed: No Education: Associate Degree Difficulty w/ Childcare or Family Care: No Living arrangements: with family Additional living arrangements comments: The patient lives with his in [place]. Occupation/Education: retired Additional occupation/education comments: Retired. Spiritual care concerns: No Meds Home Medications and Allergies Home Medications Medication Instructions Recorded Confirmed Type lisinopril 20 mg tablet 20 mg PO DAILY #90 tabs 10/29/22 01/05/23 Rx erythromycin 500 mg tablet 1 g PO .COMPLEX #6 tabs 12/09/22 01/05/23 Rx metronidazole 500 mg tablet 500 mg PO .COMPLEX #3 tabs 12/09/22 01/05/23 Rx acetaminophen 650 mg 650 mg PO Q8H PRN ARTHRITIS 12/17/22 01/05/23 History tablet,extended release meclizine 25 mg tablet 25 mg PO PRN PRN Vertigo 01/05/23 01/05/23 History Allergies Allergy/AdvReac Type Severity Reaction Status Date / Time Penicillins Allergy Mild Unknown Verified 01/14/23 06:11 mushroom Allergy Unknown HIVES Verified 01/14/23 06:11 Vital Signs Vital Signs - 24 hr 01/14/23 06:00 Temperature 97.4 F L Pulse Rate 72 Respiratory Rate 16 Blood
--- NOTE | 2023-01-14 07:08 | WPDHPUPDATE1 ---
History and Physical Update Update Date/Time: 01/14/23 07:08 History and Physical has been reviewed, including an updated exam of the patient. There are NO changes in the patient's condition. Risks, benefits, and alternatives have been discussed and questions answered. Patient agrees to proceed with procedure.
--- NOTE | 2023-01-14 07:11 | WPDANESEPPF ---
Anes - Initial Pre Proc Eval Procedure: Operation Date: 01/14/23 07:30 Proposed Procedures p Hand Assisted Laparoscopic Sigmoidectomy - Garfield Haider MD s Stent Placement for Abdominal Surgery - Dieudonne Bryant MD Date/Time: 01/14/23 07:11 Surgeon: Garfield Haider MD Pre Op Diagnosis: Diverticulitis with Abscess Patient Data Age: 77 Gender: M Height: 1.8 m Weight: 73 kg Last Vital Signs Temp 36.3 C L 01/14/23 06:00 Pulse 72 01/14/23 06:00 Resp 16 01/14/23 06:00 BP 121/75 01/14/23 06:00 Pulse Ox 99 01/14/23 06:00 O2 Del Method Room Air 01/14/23 06:00 Allergies Allergy/AdvReac Type Severity Reaction Status Date / Time Penicillins Allergy Mild Unknown Verified 01/14/23 06:11 mushroom Allergy Unknown HIVES Verified 01/14/23 06:11 Home Medications Medication Instructions Recorded Confirmed Type lisinopril 20 mg tablet 20 mg PO DAILY #90 tabs 10/29/22 01/05/23 Rx erythromycin 500 mg tablet 1 g PO .COMPLEX #6 tabs 12/09/22 01/14/23 Rx metronidazole 500 mg tablet 500 mg PO .COMPLEX #3 tabs 12/09/22 01/14/23 Rx acetaminophen 650 mg 650 mg PO Q8H PRN ARTHRITIS 12/17/22 01/05/23 History tablet,extended release meclizine 25 mg tablet 25 mg PO PRN PRN Vertigo 01/05/23 01/05/23 History Patient hx anesthesia problems: none Family hx anesthesia problems: none Results Review: All pre-operative results and documents have been reviewed as part of the pre-operative evaluation. [facility] Past Medical History Medical History Hypertension Malignant neoplasm of prostate Rheumatoid arthritis Surgical History Surgical History No history of previous surgery Family History Family History Father Lung cancer Mother Heart disease Hypertension Social History Social History Social History: Surrogate medical decision maker: Fabi Rinaldi, spouse. Code status: Full code. Smoking packs per day: 1 Smoking cigarettes per day: 20.0 Years smoked: 6 Smoking pack-years: 6.00 Smoking status: Former smoker Tobacco type: cigarettes Second hand tobacco smoke exposure: Yes Smoking end date: 11/09/70 Alcohol intake: former Drinks per week: 21 Alcohol use details: QUIT DRINKG 06/2022. WOULD DRINK 3-4 BEERS DAILY Substance use: never Substance use type: does not use Lack of Transportation: No Lack of Food: Never True Current Housing: I Have Housing Concerned About Future Housing: No Difficulty Paying Gas/Electric Bills: No Difficulty Paying for Meds: No Currently Unemployed: No Education: Associate Degree Difficulty w/ Childcare or Family Care: No Living arrangements: with family Additional living arrangements comments: The patient lives with his in [place]. Occupation/Education: retired Additional occupation/education comments: Retired. Spiritual care concerns: No Anes - Eval Final PreProcedure Day of Procedure 01/14/23 07:11 Patient weight: normal Heart: regular rate and rhythm Lungs: decreased breath sounds Airway: Mallampati scale class II Neurological: alert and oriented Last oral intake: >/= 8 hours ASA classification: III Emergent: no Anesthetic plan: proceed Anesthesia type and monitoring: general ETT and standard monitoring Results Review: All pre-operative results and documents have been reviewed as part of the pre-operative evaluation. Informed Consent: The patient's anesthetic plan and its attendant risks and benefits were discussed with the patient/family/POA. Questions were solicited and answers provided to the satisfaction of the patient/family/POA.
--- NOTE | 2023-01-14 07:12 | WPDHPUPDATE1 ---
History and Physical Update Update Date/Time: 01/14/23 07:12 History and Physical has been reviewed, including an updated exam of the patient. There are NO changes in the patient's condition. Risks, benefits, and alternatives have been discussed and questions answered. Patient agrees to proceed with procedure.
[2023-01-14] MEDS: ceFAZolin 2 GM/D5W 50 ML 2 GM/50 ML BAG IVPB (07:28)
[2023-01-14] MEDS: metroNIDAZOLE 500 MG/ISO 100ML 500 MG/100 ML BAG 100 MG IVPB (07:45)
--- NOTE | 2023-01-14 08:13 | P.OP_ITS ---
Procedure Note - Detailed Date of Procedure 01/14/23 Pre-op Diagnosis Diverticulitis with Abscess Post-op Diagnosis Same Procedure Performed Cystoscopy with bilateral ureteral catheterization Surgeon Dieudonne Bryant MD Anesthesia General Description of Procedure The patient was brought to the operative suite where he was prepped and draped in a routine sterile fashion while in a dorsal lithotomy position after the uneventful induction of a general anesthetic. Cystoscopy was undertaken with a 21F rigid cystoscope. There were no urethral strictures. The prostatic urethral estimated length was 2.0cm. There was mild obstruction of the prostatic urethra with no median lobe enlargement. The bladder showed mild diffuse mucosal hyperemia without obvious fistula formation. Was some debris in the bladder suggestive of a small fistula, however. There was a single orthotopic ureteral orifice bilaterally with clear reflex of urine. 5F whistle- tip catheters were place in each ureter and advanced to the kidneys without difficulty. An 18F Rob catheter was placed and the ureteral catheters were fixed to the Rob catheter with clips. The patient tolerated this aspect of the procedure well.
[2023-01-14] MEDS: BUPIVACAINE/EPINEPHRINE 0.5% 50 ML VIAL INFILTRATE (11:32)
--- NOTE | 2023-01-14 11:51 | W.PM.PROC2 ---
Procedure Note - Detailed Date of Procedure 01/14/23 Pre-op Diagnosis Diverticulitis with Abscess, sigmoid colon polyp Post-op Diagnosis Same Procedure Performed Hand access laparoscopic sigmoidectomy with stapled #33 EEA colorectal anastomosis. Surgeon Garfeild Haider MD Car Hostler Lorena [employer] Anesthesia General and Local (0.5% Marcaine with epinephrine) Indications Patient is a 77-year-old man who has a history of prostate cancer and rheumatoid arthritis. He presented last September with diverticulitis. This temporarily improved with then he returned to the hospital with an abscess that required percutaneous drainage. This slowly improved but the patient continued to have lower abdominal pain and complaints of dysuria. There was concern regarding a colovesical fistula both by imaging and by the patient's symptoms. No imaging demonstrated a colovesical fistula. He had a colonoscopy in December and this showed a tubular adenoma of the sigmoid colon. He is taken to surgery at this time for Hand access laparoscopic sigmoidectomy. Due to the severity of his diverticulitis and the inflammation, Dr. Bryant is placing ureteral stents prior to the surgery. He is also available should he be needed for management of colovesical fistula. Findings No colovesical fistula was identified. No evidence of malignancy was identified. The stents were very helpful as there was severe inflammation in the left lower abdomen and upper pelvis. There was a dense strictured area of the sigmoid colon which was likely the focus of the diverticulitis. I was not able to feel any polyp. The sigmoid was not adherent to the bladder at all. There was severe inflammation freeing the sigmoid colon from small bowel and from the upper pelvic sidewall. Description of Procedure Patient was taken to surgery and induced into general anesthesia. Dr. Bryant performed cystoscopy and placed bilateral ureteral stents and Rob catheter. He will dictate that in a separate dictation. I talked with him after the procedure. He did not see any sign of a potential colovesical fistula on cystoscopy. The patient was then placed in lithotomy with Erich stirrups. Rectal irrigation and a rectal tube were placed. The abdomen was prepped and draped. The hand access port was planned in the lower abdominal midline just below the umbilicus. The incision was marked on the skin. Local was infiltrated into the skin and the subcutaneous. Incision was made dissection was carried down through the subcutaneous. Crossing veins were cauterized. Once the fascia was exposed I infiltrated additional local into the anterior rectus fascia in the midline. We then divided through the rectus fascia. The peritoneum was pulled up and opened entering the peritoneal cavity. This opening was extended the length of the wound. The Freedom wound guard was then placed. The GelPort was placed. With the hand in the abdomen, local was infiltrated on the left side of the mid upper abdomen. Incision was made and a 10 11 port was placed there. We insufflated and the camera was placed. Then under direct visualization, a midline 10 11 port above the umbilicus was placed using the same technique with local anesthetic. Finally a right-sided 12 mm port was placed. Patient was placed in Trendelenburg with the left side elevated. Laparoscopic findings were as above. I was able to see the dome of the bladder right away and there was no evidence of any bowel being attached to the urinary bladder. There was a loop of ileum attached to the inflammatory mass of the sigmoid colon. This area was likely the source of the stricture and previous abscess. I used blunt dissection and some sharp dissection to dissect the loop of bowel off of the sigmoid colon. From there, I dissected some anterior abdominal wall adhesions as well as some left sided pelvic adhesions to the sigmoid colon. These were dense difficult adhesions. There was a
[2023-01-14] MEDS: fentaNYL CITRATE INJ (*CRX) 100 MCG/2 ML VIAL 25 MCG IV PUSH (12:10)
[2023-01-14] MEDS: LACTATED RINGERS 1,000 ML 100 ML IV CONT (13:19)
--- NOTE | 2023-01-14 13:30 | ADMGEN ---
This patient, Johny Rinaldi, was admitted to [facility] Surg Room 305-01. Patient/family oriented to hospital policies and general routines including ID bracelet, bed and alarms, visiting hours, pain management, procedures, bathroom and other care routines, personal items, smoking policy, room service/diet, and visiting hours. Information on how to activate the Rapid Response Team has been discussed. Patient/Family are encouraged to report perceived risks to care and to ask questions if they do not understand what they are told or what they should do.
[2023-01-14] MEDS: MORPHINE SULFATE (*CRX) 2 MG/ML INJ IV PUSH (13:34)
[2023-01-14] MEDS: oxyBUTYnin CHLORIDE 5 MG TABLET PO (15:22)
[2023-01-14] MEDS: LACTATED RINGERS 500 ML 200 ML IVPB (18:30)
[2023-01-14] MEDS: FAMOTIDINE 20 MG/2 ML VIAL IV PUSH (22:00)
[2023-01-15 00:50] VITALS: BP 106/67; PULSE 70; RESP 16; TEMP 37.1; O2SAT 95
[2023-01-15 04:47] VITALS: BP 110/59; PULSE 63; RESP 16; TEMP 36.4; O2SAT 97
[2023-01-15] MEDS: LACTATED RINGERS 1,000 ML 100 ML IV CONT ×2 (05:09→15:03)
[2023-01-15] MEDS: MORPHINE SULFATE (*CRX) 2 MG/ML INJ IV PUSH (05:15)
[2023-01-15 06:51] LABS: Hemoglobin 11.8 g/dL (14.0-18.0); Mean Corpuscular HGB Conc 32.8 g/dl (32-36); Mean Corpuscular Hemoglobin 29.7 pg (26-34); Mean Corpuscular Volume 90.7 fl (80-100); Mean Platelet Volume 9.2 fl (7.4-10.4); Platelet Count Result 200 k/mm3 (150-375); Red Blood Count 3.97 M/mm3 (4.6-6.20); Red Cell Distribution Width 14.2 % (11.5-14.5); White Blood Count 12.7 K/mm3 (4.5-10.0)
[2023-01-15 07:09] LABS: Anion Gap 5 mmol/L (8-16); Blood Urea Nitrogen 11 mg/dL (9-20); Calcium 8.5 mg/dL (8.4-10.2); Carbon Dioxide 25 mmol/L (22-30); Chloride 102 mmol/L (98-107); Estimated CRCL calculation 79 ml/min; Estimated Glomerular Filt Rate > 60; Glucose 131 mg/dL (65-110); Potassium 4.8 mmol/L (3.4-5.0); Sodium 132 mmol/L (137-145)
[2023-01-15 08:00] VITALS: BP 100/62; PULSE 58; RESP 20; TEMP 36.8; O2SAT 97
--- NOTE | 2023-01-15 08:30 | PM.PNGS ---
Progress Note: A&P Assessment and Plan (1) Diverticulitis of intestine with abscess: Code(s): K57.80 - Diverticulitis of intestine, part unspecified, with perforation and abscess without bleeding Status: Acute Assessment and Plan: Doing well postop day 1. Increase ambulation, discontinue Rob catheter. Advanced to low-fiber diet. Recheck labs and exam again tomorrow. Taking IV pain meds this morning. Subjective Subjective Date/Time Seen: 01/15/23 08:30 Post Op day: 1 Patient reports: no new complaints, pain is less, tolerating liquids well, no flatus, no bowel movement and afebrile Exam Const: General: comfortable and no acute distress; No confusion Orientation/consciousness: patient oriented x3 and No confusion GI: Inspection: non-distended and incision (Dry and healing well) GI Palp: Yes Soft to palpation, Yes Tenderness to palpation present (GI), No Guarding due to palpation present (GI) and No Rebound tenderness present Auscultation: Hypoactive bowel sounds present Neuro: General: patient oriented x3, no focal motor deficits and No confusion Extrem: General: no calf tenderness and no edema Psych: Affect: normal affect Insight: Good insight present (Psych) Judgement: Good judgement present (Psych) Objective Data Vital Signs Vital Signs: Vital Signs - 24 hr 01/14/23 11:49 01/14/23 12:04 01/14/23 12:19 Temperature 37.2 C Pulse Rate 90 72 69 Respiratory Rate 12 12 12 Blood Pressure 109/74 102/65 109/74 Pulse Oximetry 100 100 96 Oxygen Delivery Simple Face Mask Simple Face Mask Room Air Oxygen Flow Rate 10 10 01/14/23 12:30 01/14/23 12:45 01/14/23 12:55 Temperature Pulse Rate 71 70 69 Respiratory Rate 14 12 13 Blood Pressure 119/72 119/72 118/71 Pulse Oximetry 96 96 96 Oxygen Delivery Room Air Room Air Room Air Oxygen Flow Rate 01/14/23 13:12 01/14/23 13:49 01/14/23 13:25 Temperature 35.5 C L 36.4 C Pulse Rate 71 69 Respiratory Rate 13 13 Blood Pressure 121/74 119/68 Pulse Oximetry 93 95 Oxygen Delivery Room Air Oxygen Flow Rate 01/14/23 13:40 01/14/23 14:40 01/14/23 16:30 Temperature 36.4 C L 36.4 C L 36.5 C Pulse Rate 66 67 66 Respiratory Rate 14 16 16 Blood Pressure 120/79 113/72 120/69 Pulse Oximetry 96 96 99 Oxygen Delivery Oxygen Flow Rate 01/14/23 20:30 01/14/23 20:42 01/15/23 00:50 Temperature 36.2 C L 37.1 C Pulse Rate 66 90 70 Respiratory Rate 16 16 16 Blood Pressure 101/60 106/67 Pulse Oximetry 99 96 95 Oxygen Delivery Room Air Oxygen Flow Rate 01/15/23 04:47 Temperature 36.4 C L Pulse Rate 63 Respiratory Rate 16 Blood Pressure 110/59 L Pulse Oximetry 97 Oxygen Delivery Oxygen Flow Rate Intake/Output Intake/Output: Intake & Output 01/12/23 01/13/23 01/14/23 01/15/23 23:59 23:59 23:59 23:59 Intake Total 2290 Output Total 0 1550 Balance 2290 -1550 Meds/Results Medications: Active Medications Generic Name Dose Route Start Last Admin Trade Name Freq PRN Reason Stop Dose Admin Acetaminophen 500 mg 01/14/23 12:57 Acetaminophen 500 Mg Tablet PO Q6H PRN Mild Pain (1-3) or Fever Hydrocodone Bitart/Acetaminophen 1 tab 01/14/23 12:57 Hydrocodone/Acetaminophen (*Crx) 5-325 Mg Tablet PO Q4H PRN Pain Rated 4-6 Hydrocodone Bitart/Acetaminophen 1 tab 01/14/23 12:57 Hydrocodone/Acetaminophen (*Crx) 10-325 Mg Tablet PO Q4H PRN Pain Rated 7-10 Alvimopan 12 mg 01/15/23 21:00 Alvimopan 12 Mg Capsule PO 01/22/23 20:59 Q12HR JUDI Enoxaparin Sodium 40 mg 01/15/23 09:00 Enoxaparin 40 Mg/0.4 Ml Syringe SUB-Q DAILY JUDI Famotidine 20 mg 01/14/23 21:00 01/14/23 22:00 Famotidine 20 Mg/2 Ml Vial IV PUSH 20 mg Q12HR JUDI Administration Lactated Ringer's 1,000 mls @ 100 mls/hr 01/14/23 12:57 01/15/23 05:09 Lr - Lactated Ringers Iv IV CONT 100 mls/hr .Q10H JUDI Administration Lisinopril 20 mg 01/15/23 0
[2023-01-15] MEDS: lisinopriL 20 MG TABLET PO (08:43)
[2023-01-15] MEDS: ENOXAPARIN 40 MG/0.4 ML SYRINGE SUB-Q (08:44)
[2023-01-15] MEDS: FAMOTIDINE 20 MG TABLET PO ×2 (09:42→21:23)
[2023-01-15 11:40] VITALS: BP 108/67; PULSE 72; RESP 20; TEMP 36.7; O2SAT 96
--- NOTE | 2023-01-15 12:33 | WPDANESPN ---
Anes - Prog Note Post-Op Date/Time: 01/15/23 12:33 Vital Signs: Last Vital Signs Temp 36.7 C 01/15/23 11:40 Pulse 72 01/15/23 11:40 Resp 20 01/15/23 11:40 BP 108/67 01/15/23 11:40 Pulse Ox 96 01/15/23 11:40 O2 Del Method Room Air 01/15/23 08:00 O2 Flow Rate 10 01/14/23 12:04 Pain Score (VAS): 3 I/O: Intake & Output 01/14/23 01/15/23 01/15/23 23:59 07:59 15:59 Intake Total 1840 1188 Output Total 1550 1350 Balance 1840 -1550 -162 Laboratory Tests 01/15/23 06:34 01/15/23 06:34 01/15/23 01/15/23 06:34 06:34 WBC 12.7 H RBC 3.97 L Hgb 11.8 L Hct 36.0 L MCV 90.7 MCH 29.7 MCHC 32.8 RDW 14.2 Plt Count 200 MPV 9.2 Sodium 132 L Potassium 4.8 Chloride 102 Carbon Dioxide 25 Anion Gap 5 L BUN 11 Creatinine 0.70 Estim Creat Clear Calc 79 Estimated GFR > 60 Glucose 131 H Calcium 8.5 Patient Feedback: Patient satisfied with anesthetic care.
[2023-01-15] MEDS: ACETAMINOPHEN 500 MG TABLET PO (14:14)
[2023-01-15 16:00] VITALS: BP 110/77; PULSE 54; RESP 20; TEMP 36.2; O2SAT 100
--- NOTE | 2023-01-15 19:08 | PC.NURSE ---
On 01/15/23, the GELATIN P[employer]DER MIXER, Purvi Aceves, provided care and completed [facility] documentation on this patient. I have reviewed the [employer]'s documentation and agree with the findings.
[2023-01-15 20:00] VITALS: BP 117/72; PULSE 50; PULSE 51; RESP 14; RESP 16; TEMP 36.3; O2SAT 100; O2SAT 98
[2023-01-15] MEDS: ALVIMOPAN 12 MG CAPSULE PO (21:23)
[2023-01-16] VITALS: BP 131/77; PULSE 51; RESP 14; TEMP 36.2; O2SAT 98
[2023-01-16] MEDS: LACTATED RINGERS 1,000 ML 100 ML IV CONT (02:56)
[2023-01-16] MEDS: ACETAMINOPHEN 500 MG TABLET PO (03:04)
[2023-01-16 07:00] LABS: Hematocrit 35.5 % (42.0-52.0); Hemoglobin 11.8 g/dL (14.0-18.0); Mean Corpuscular HGB Conc 33.2 g/dl (32-36); Mean Corpuscular Hemoglobin 29.9 pg (26-34); Mean Corpuscular Volume 89.9 fl (80-100); Mean Platelet Volume 9.1 fl (7.4-10.4); Platelet Count Result 168 k/mm3 (150-375); Red Blood Count 3.95 M/mm3 (4.6-6.20); Red Cell Distribution Width 14.4 % (11.5-14.5); White Blood Count 8.8 K/mm3 (4.5-10.0)
[2023-01-16 07:06] LABS: Anion Gap 3 mmol/L (8-16); Blood Urea Nitrogen 13 mg/dL (9-20); Calcium 8.4 mg/dL (8.4-10.2); Carbon Dioxide 28 mmol/L (22-30); Chloride 104 mmol/L (98-107); Estimated CRCL calculation 79 ml/min; Estimated Glomerular Filt Rate > 60; Glucose 87 mg/dL (65-110); Potassium 3.9 mmol/L (3.4-5.0); Sodium 135 mmol/L (137-145)
[2023-01-16 08:00] VITALS: BP 136/78; PULSE 74; RESP 14; TEMP 35.9; O2SAT 100
[2023-01-16] MEDS: lisinopriL 20 MG TABLET PO (08:41)
[2023-01-16] MEDS: FAMOTIDINE 20 MG TABLET PO (08:41)
[2023-01-16] MEDS: ALVIMOPAN 12 MG CAPSULE PO (08:41)
--- NOTE | 2023-01-16 09:58 | PM.DS ---
DS: Admitting Diagnosis Discharge Date 01/16/2023 Admitting Diagnosis Diverticulitis with abscess Prostate cancer Rheumatoid arthritis Essential hypertension DS: Discharge Diagnosis Discharge Diagnosis (1) Abscess of sigmoid colon due to diverticulitis: Code(s): K57.20 - Diverticulitis of large intestine with perforation and abscess without bleeding Status: Resolved Assessment and Plan: Patient underwent hand access laparoscopic sigmoidectomy with stapled 33 EEA colorectal anastomosis 01/14/2023. Polyp removed at time of surgery. Path is pending at the time of this dictation. (2) Polyp of sigmoid colon: Code(s): K63.5 - Polyp of colon Status: Resolved (3) Malignant neoplasm of prostate: Code(s): C61 - Malignant neoplasm of prostate Status: Chronic (4) Rheumatoid arthritis: Code(s): M06.9 - Rheumatoid arthritis, unspecified Status: Chronic (5) Hypertension: Code(s): I10 - Essential (primary) hypertension Status: Chronic DS: Summary Hospital Course Hospital Course: Patient presented with diverticulitis initially last September. This progressed to an abscess which required percutaneous drainage under CT guidance. The abscess eventually resolved and the drain was removed. Patient had complaints of painful urination and some unusual matter in the urine. Imaging did not confirm a colovesical fistula but this was a concern prior to surgery. Patient did have a colonoscopy by Dr. Ledesma on 12/29/2022. This showed a stricture and extensive diverticulosis but also a polyp which on biopsy was a tubular adenoma. This polyp was also in the sigmoid colon. The patient had home bowel preparation on 01/13/2023. He was taken to surgery on 01/14/2023. Dr. Bryant saw the patient and placed ureteral stents prior to the surgery under anesthesia. Patient underwent hand access laparoscopic sigmoidectomy on 01/14/2023. There was a significant inflammatory mass that was likely the source of the stricture in the sigmoid colon. The polyp was not palpable and there was no gross evidence of malignancy. Pathology is pending at the time of this dictation. The sigmoid colon was removed. Colorectal anastomosis was performed in end to end fashion with 33 EEA stapling. Following the surgery, patient was started on liquids and advanced to soft diet. He was taking IV analgesics on postop day 1. By postop day 2. He was having bowel movements and requiring only Tylenol for pain. He was ambulating independently and voiding without difficulty. He was able to be discharged on postop day 2. In good condition. Status at Discharge Functional status at discharge: independent ambulation Overall status at discharge: patient is progressing back to baseline Time Spent with Patient Time attestation: Total time spent providing and/or coordinating discharge services: Time spent: Less than 30 minutes DS: Data Data Completed and Pending Pending studies at discharge: Pending at discharge 01/14/23 10:12 Surgical [PTH] Routine Labs on day of discharge: Labs from last 24 hours 01/16/23 01/16/23 06:42 06:42 WBC 8.8 RBC 3.95 L Hgb 11.8 L Hct 35.5 L MCV 89.9 MCH 29.9 MCHC 33.2 RDW 14.4 Plt Count 168 MPV 9.1 Sodium 135 L Potassium 3.9 Chloride 104 Carbon Dioxide 28 Anion Gap 3 L BUN 13 Creatinine 0.70 Estim Creat Clear Calc 79 Estimated GFR > 60 Glucose 87 Calcium 8.4 Discharge Plan Discharge Attending physician on discharge: Garfield Haider Consulting providers: Dieudonne Bryant Discharging Clinician: Garfield Haider Anticipated Discharge Date/Time: 01/16/23 10:12 Patient Disposition: Home, Self-Care Activity: may shower, no straining and as tolerated Diet: as tolerated and regular Wound Care Instructions: incision open to air Discharge Instructions: Ambulate 3-4 x per day and as tolerated. No li
== END 2023-01-16 13:20 | disposition home or self-care (01) | DRG 330 ==
LOC: ANH3MEDSUR 13:01
PROVIDERS: Urology; Admitting Provider Surgery; PCP Family Medicine; Visit Provider Surgery
PROC: 0D1E4Z4 Bypass Large Intestine to Cutaneous, Percutaneous Endoscopic Approach (ICD-10-PCS; principal; 2023-01-14 07:30)
PROC: 0T784DZ Dilation of Bilateral Ureters with Intraluminal Device, Percutaneous Endoscopic Approach (ICD-10-PCS; 2023-01-14 07:30)
DX: C18.7 Malignant neoplasm of sigmoid colon (principal); K57.20 Diverticulitis of large intestine with perforation and abscess without bleeding; C61 Malignant neoplasm of prostate; M06.9 Rheumatoid arthritis, unspecified; R30.0 Dysuria; I10 Essential (primary) hypertension; Z87.891 Personal history of nicotine dependence; Z88.0 Allergy status to penicillin; Z86.010 Personal history of colon polyps
CPT/HCPCS: 36415; 80048; 85027; 88309; A9270; C1713; C1729; C1758; C1769; J0690; J1100; J1650; J1885; J2250; J2270; J2405; J2704; J2710; J3010; J7030; J7120

== ENCOUNTER 2023-02-25 14:27 | Outpatient (CLI) | payer MEDICARE, SELFPAY ==
[2023-02-25 14:39] LABS: Basophils Percent Auto 0.6 % (0.2-1.2); Eosinophils Absolute Auto 0.4 K/mm3 (0-0.3); Eosinophils Percent Auto 5.3 % (0-4.4); Hematocrit 42.8 % (42.0-52.0); Hemoglobin 14.3 g/dL (14.0-18.0); Immature Granulocyte Absolute 0.03 K/mm3 (0.00-0.031); Immature Granulocyte Percent A 0.4 % (0-0.5); Lymphocytes Absolute Auto 2.16 K/mm3 (0.9-3.2); Lymphocytes Percent Auto 30.3 % (18.3-44.2); Mean Corpuscular HGB Conc 33.4 g/dl (32-36); Mean Corpuscular Hemoglobin 30.8 pg (26-34); Mean Platelet Volume 8.8 fl (7.4-10.4); Monocytes Absolute Auto 0.6 K/mm3 (0.1-0.6); Neutrophils Absolute Auto 3.9 K/mm3 (1.3-6.7); Neutrophils Percent Auto 55.4 % (45.5-73.1); Platelet Count Result 206 k/mm3 (150-375); Red Blood Count 4.65 M/mm3 (4.6-6.20); Red Cell Distribution Width 12.7 % (11.5-14.5); White Blood Count 7.1 K/mm3 (4.5-10.0)
[2023-02-25 16:11] LABS: Alanine Aminotransferase 20 U/L (6-50); Albumin Level 4.4 g/dL (3.5-5.1); Alkaline Phosphatase 64 U/L (38-126); Anion Gap 5 mmol/L (8-16); Aspartate Amino Transferase 24 U/L (17-59); Bilirubin,Total 0.6 mg/dL (0.2-1.3); Blood Urea Nitrogen 12 mg/dL (9-20); Calcium 9.1 mg/dL (8.4-10.2); Carbon Dioxide 30 mmol/L (22-30); Chloride 102 mmol/L (98-107); Estimated Glomerular Filt Rate > 60; Glucose 85 mg/dL (65-110); Potassium 4.8 mmol/L (3.4-5.0); Sodium 137 mmol/L (137-145)
[2023-02-25 16:42] LABS: Carcinoembryonic Antigen 1.1 ng/mL (0.0-3.0)
== END 2023-02-25 14:28 | disposition home or self-care (01) ==
LOC: ANHLAB 14:28
PROVIDERS: PCP Family Medicine; Visit Provider Internal Medicine Hematology & Oncology
DX: C18.4 Malignant neoplasm of transverse colon (principal)
CPT/HCPCS: 36415; 80053; 82378; 85025

== ENCOUNTER 2023-03-07 09:35 | Outpatient (CLI) | payer MEDICARE, SELFPAY ==
[2023-03-07 10:17] LABS: Prothrombin Time 13.6 Seconds (11.1-14.7)
[2023-03-07 10:18] LABS: Partial Thromboplastin Time 28.6 SECONDS (22.3-36.8)
== END 2023-03-07 09:36 | disposition home or self-care (01) ==
PROVIDERS: PCP Family Medicine; Visit Provider Surgery
DX: C18.9 Malignant neoplasm of colon, unspecified (principal); Z01.818 Encounter for other preprocedural examination
CPT/HCPCS: 36415; 85610; 85730

== ENCOUNTER 2023-03-09 01:53 | Day surgery (SDC) | payer MEDICARE, SELFPAY ==
[2023-03-04 11:04] VITALS: BMI 23.6
--- NOTE | 2023-03-04 11:10 | PC.NURSE ---
PRE-OP INSTRUCTIONS, PLEASE READ CAREFULLY Report to the Outpatient Waiting Room, entrance under the green pavilion located off [facility], at time _1130_ on date _03/09/23_. Planned Procedure Time: _1:30 PM_. Time changes happen often and if your time is changed the preop area will call you the afternoon before. - You and your visitor will be asked to self-screen and do not enter if you have any COVID symptoms. - A mask is optional within the hospital at this time. Patients may have clear liquids (water, carbonated beverages, clear teas, apple juice) until 3 hours prior to surgery (1030 AM) with a maximum of 20 ounces. - No food from midnight until time of surgery Take the following medications with a SIP of water the morning of surgery: _TYLENOL IF NEEDED_ DO NOT STOP ANY OF YOUR OTHER PRESCRIPTION MEDICATIONS PRIOR TO SURGERY ?EXCEPT THE FOLLOWING Medications to discontinue per physician __NONE___, Date to take last dose Please no make-up, nail panamanian, hairspray, perfume, deodorant, or body powder the day of surgery. No jewelry (including any body piercings) or valuables the day of surgery, leave them at home. Please take a shower or bath the night before, or the morning of, surgery with an antibacterial soap. Wear comfortable, loose fitting clothing. - Jewelry must be removed prior to entering the operating room. Rings and piercings that are not removed may be cut off. - The hospital will not accept responsibility for valuables. - Please leave all valuables, including medications, at home the day of surgery. If you are going home after surgery, a licensed food service driver must drive you home. - NO public transportation without another adult if you receive anesthesia. - We recommend that an adult stay with you for 24 hours following discharge. - We also recommend that you do not drive, make important decision, drink alcoholic beverages, or take any drugs that were not prescribed by your health care provider for at least 24 hours after your discharge time. Follow any additional instructions given to you from your surgeon. If you or anyone in your household have experienced Covid symptoms in the past week, please notify your surgeon or the nurse liaison at the phone number below for possible testing. Telephone instructions given to _PATIENT_and asked if any additional questions and then verbalized understanding. Patient advised to call surgeon office or pre surgery nurse liaison [phone] if any additional questions.
--- NOTE | ~2023-03-09 | XR_ITS ---
EXAMINATION: XR fl guide central line place DATE: 03/09/2023 11:15 INDICATION: Port placement. TECHNIQUE: A single intraoperative fluoroscopic view of the chest was obtained. I was not present. Fl uoroscopy exposure time was 28 seconds. COMPARISON: Chest single view at 03/09/2023 FINDINGS: The central line tip is in the superior vena cava. IMPRESSION: 1. Central line tip in the superior vena cava. Reviewed, dictated and finalized at location A.
--- NOTE | ~2023-03-09 | XR_ITS ---
EXAMINATION: XR chest port-a-cath/central DATE: 03/09/2023 11:14 INDICATION: Port catheter insertion TECHNIQUE: frontal view of the chest was obtained. COMPARISON: Chest radiograph dated 01/05/2023 FINDINGS: Right internal jugular central venous port catheter with distal tip in the mid superior vena cava. No focal airspace opacities, pulmonary edema, pleural effusion or pneumothorax. Cardiomediastinal silho uette is normal. Likely prior distal right clavicle resection. IMPRESSION: 1. Right internal jugular central venous port catheter tip at the midsuperior vena cava. No pneumotho rax or other acute cardiopulmonary disease. Reviewed, dictated and finalized at location B. IMPRESSION: 1. Right internal jugular central venous port catheter tip at the midsuperior v jaclyn cava. No pneumothorax or other acute cardiopulmonary disease.
[2023-03-09 08:00] VITALS: BP 113/68; PULSE 98; RESP 16; TEMP 36.2; O2SAT 100
[2023-03-09] MEDS: LACTATED RINGERS 1,000 ML 30 ML IV CONT (08:00)
[2023-03-09] MEDS: KETOROLAC 15 MG/ML VIAL (*BKC) IV PUSH (08:15)
--- NOTE | 2023-03-09 09:22 | WPDANESEPPF ---
Anes - Initial Pre Proc Eval Procedure: Operation Date: 03/09/23 09:45 Proposed Procedures p Insertion Elaine Cath - Jerry Olvera MD Date/Time: 03/09/23 09:22 Surgeon: Jerry Olvera MD Pre Op Diagnosis: prostate cancer, colon cancer Patient Data Age: 77 Gender: M Height: 1.8 m Weight: 71.25 kg Last Vital Signs Temp 97.1 F L 03/09/23 08:00 Pulse 98 03/09/23 08:00 Resp 16 03/09/23 08:00 BP 113/68 03/09/23 08:00 Pulse Ox 100 03/09/23 08:00 O2 Del Method Room Air 03/09/23 08:00 Allergies Allergy/AdvReac Type Severity Reaction Status Date / Time Penicillins Allergy Mild Unknown Verified 03/09/23 08:28 mushroom Allergy Unknown HIVES Verified 03/09/23 08:28 Home Medications Medication Instructions Recorded Confirmed Type lisinopril 20 mg tablet 20 mg PO DAILY #90 tabs 10/29/22 03/09/23 Rx acetaminophen 650 mg 650 mg PO Q8H PRN ARTHRITIS 12/17/22 03/09/23 History tablet,extended release vitamin B complex 1 cap PO DAILY 03/04/23 03/09/23 History Patient hx anesthesia problems: none Family hx anesthesia problems: none Results Review: All pre-operative results and documents have been reviewed as part of the pre-operative evaluation. [facility] Past Medical History Medical History (Updated 03/02/23 @ 16:58 by Neel Baptiste MD) Abscess of sigmoid colon due to diverticulitis Hypertension Malignant neoplasm of prostate Polyp of sigmoid colon Rheumatoid arthritis Surgical History Surgical History History of colon resection Hand access laparoscopic sigmoidectomy 01/14/2023 for diverticulitis and polyp Family History Family History Father Lung cancer Mother Heart disease Hypertension Social History Social History Social History: Surrogate medical decision maker: Fabi Rinaldi, spouse. Code status: Full code. Smoking packs per day: 1 Smoking cigarettes per day: 20.0 Years smoked: 6 Smoking pack-years: 6.00 Smoking status: Former smoker Tobacco type: cigarettes Second hand tobacco smoke exposure: No Smoking end date: 11/09/70 Alcohol intake: former Drinks per week: 21 Alcohol use details: 3-4 BEERS/DAILY - QUIT 06/2022 Substance use: never Substance use type: does not use Lack of Transportation: No Lack of Food: Never True Current Housing: I Have Housing Concerned About Future Housing: No Difficulty Paying Gas/Electric Bills: No Difficulty Paying for Meds: No Currently Unemployed: No Education: Associate Degree Difficulty w/ Childcare or Family Care: No Living arrangements: with family Additional living arrangements comments: The patient lives with his in [place]. Occupation/Education: retired Additional occupation/education comments: Retired. Spiritual care concerns: No Anes - Eval Final PreProcedure Day of Procedure 03/09/23 09:22 Patient weight: normal Heart: regular rate and rhythm Lungs: clear to auscultation Airway: Mallampati scale class II Neurological: alert and oriented Last oral intake: >/= 8 hours ASA classification: III Emergent: no Anesthetic plan: proceed Anesthesia type and monitoring: general GIVS and standard monitoring Results Review: All pre-operative results and documents have been reviewed as part of the pre-operative evaluation. Informed Consent: The patient's anesthetic plan and its attendant risks and benefits were discussed with the patient/family/POA. Questions were solicited and answers provided to the satisfaction of the patient/family/POA.
[2023-03-09] MEDS: ceFAZolin 2 GM/D5W 50 ML 2 GM/50 ML BAG IVPB (09:48)
--- NOTE | 2023-03-09 10:00 | WPDHPUPDATE1 ---
History and Physical Update Update Date/Time: 03/09/23 10:00 History and Physical has been reviewed, including an updated exam of the patient. There are NO changes in the patient's condition. Risks, benefits, and alternatives have been discussed and questions answered. Patient agrees to proceed with procedure. Pt needs portacatheter placement for chemo therapy treatments Will place a portacatheter today in the OR. Risks, benefits, indications, and expected outcomes were discussed in detail with the patient and/or family. They understand and I have answered all other questions. They wished to proceed with surgery as outlined above. Specific risk of bleeding and iatrogenic pneumothorax and possible need for chest tube discussed.
[2023-03-09] MEDS: LIDO 1%/EPINEPHRINE 1:100,000 20 ML VIAL 30 ML INFILTRATE (10:29)
--- NOTE | 2023-03-09 10:51 | SUR.OPER ---
Ultrasound used prior to start no picture to send as per surgeon.
--- NOTE | 2023-03-09 10:54 | SUR.OPER ---
right portacath lot [id number], exp 2026-02-06, Smart Port CT
--- NOTE | 2023-03-09 10:58 | W.PM.PROC2 ---
Procedure Note - Detailed Date of Procedure 03/09/23 Pre-op Diagnosis prostate cancer, colon cancer Post-op Diagnosis Same Procedure Performed Placement of right internal jugular vein single-lumen port a catheter with intraoperative fluoroscopy. Surgeon Jerry Olvera MD Composition Stone Applicator Lorena Grace CROCHET BEADER Anesthesia MAC and Local Indications Patient is a 77-year-old gentleman who recently underwent a sigmoid colectomy was found to have invasive sigmoid colon cancer. He is going to be starting chemotherapy and presents now for placement of a tameka catheter to start chemotherapy. Findings None Description of Procedure After informed consent was obtained patient was brought to the operating room placed supine position and then IV sedation was administered by anesthesia. The bilateral upper anterior neck and chest was then prepped and draped in usual sterile fashion. A time-out was then performed correctly identifying the patient as well as procedure to be performed verifying he was given preoperative IV antibiotics. He was then placed in the head-down Trendelenburg position and then utilizing a long 18gauge spinal needle I was able to cannulate the right internal jugular vein between the 2 heads of the right sternocleidomastoid muscle. There was prompt dark blood return into the syringe inside advanced a guidewire into the right internal jugular vein and subsequently into the superior vena cava. Intraoperative fluoroscopy was then used to identify the tip of the guidewire the proper position. I then created the subcutaneous port pocket in the right upper anterior chest region. 1% lidocaine mixed with 0.5% Marcaine was injected or asthma into place the port and then the subcutaneous tunnel catheter. I then made a transverse incision just below the medial 3rd of the right clavicle and dissected down through the subcutaneous tissue electrocautery. Then created a subcutaneous port pocket below the incision with blunt finger electrocautery dissection. I then tunneled single-lumen 9.6 Bulgarian catheter from the chest incision to the neck incision. I then advanced a dilator breakaway sheath over the guidewire removing the guidewire and dilator leaving and leaving the sheath in place. A 9.6 Bulgarian catheter was advanced through the sheath into the right right internal jugular vein and subsequently into the right atrium of the heart. Intraoperative fluoroscopy was used once more to identify tip the catheter and then would traction on the catheter I pulled out it back into the tip was in the distal superior vena cava. The catheter was then cut to the appropriate length the skin level and attached to the Smart Port. The port was then secured the subcutaneous port pocket with 3 separate 3-0 Prolene sutures. I then accessed the port and it aspirated blood easily and was flushed with heparinized saline solution. I then flushed the catheter with 5000units of heparinized saline solution for final flush. I then irrigated out the port pocket hemostasis was good. I then closed the port pocket incision lies interrupted 3-0 Vicryl sutures in the subcutaneous tissues the skin edges were then approximated lies in a running subcuticular 4 Monocryl suture. The small incision in the right anterior lateral neck region was closed utilizing 4-0 Monocryl suture as well. The area was then cleaned the skin glue was applied for final dressing. Postprocedure chest x-ray is pending at the time of this dictation. The patient tolerated the procedure well no complications. All sponges, needles, and instrument counts were correct at the end procedure. EBL was _10__cc. The patient was awakened and taken to recovery in stable and satisfactory condition. Implants Smart Port with single-lumen 9.6 Bulgarian catheter placed into the right internal jugular vein. Estimated Blood Loss 10 Drains No Packing No Pathology None sent Complications No immediate complications Condition Stable Dispositi
[2023-03-09 11:02] VITALS: BP 103/59; PULSE 54; RESP 14; O2SAT 99
[2023-03-09 11:30] VITALS: BP 120/70; PULSE 56; RESP 20
[2023-03-09 11:50] VITALS: BP 111/80; PULSE 45; RESP 18
== END 2023-03-09 11:59 | disposition home or self-care (01) ==
PROVIDERS: PCP Family Medicine; Visit Provider Surgery
PROC: (CPT 36561; principal; 2023-03-09 09:45)
DX: C18.7 Malignant neoplasm of sigmoid colon (principal); Z85.46 Personal history of malignant neoplasm of prostate; I10 Essential (primary) hypertension; Z87.891 Personal history of nicotine dependence; Z90.49 Acquired absence of other specified parts of digestive tract
CPT/HCPCS: 36561; 36415; 77001; 85610; 85730; C1788; J0690; J1644; J1885; J2704; J3010; J7030; J7120

== ENCOUNTER 2024-01-11 09:30 | Outpatient (CLI) | payer MEDICARE, SELFPAY ==
--- NOTE | ~2024-01-11 | CT_ITS ---
EXAMINATION: CT abdomen pelvis w con DATE: 01/11/2024 10:08 INDICATION: Malignant neoplasm of the transverse colon TECHNIQUE: Computed tomography (CT) of the abdomen and pelvis was performed with 100 mL Omnipaque-350 intravenous contrast. Automated exposure control and iterative reconstruction technique were employe d. The dose-length product was 454.80 mGy-cm. COMPARISON: 12/01/2022 FINDINGS: Mild bronchiectasis in scattered mild discoid atelectasis in the bilateral lower lungs. Heart size no rmal. No pericardial or pleural effusion. Small sliding-type hiatal hernia. There are some liver surf toya nodularity consistent with cirrhosis. Mild splenomegaly measuring 14.8 cm craniocaudal length. Th ere appear to be a few very small paraesophageal collaterals which along with the splenomegaly sugges ts portal venous hypertension. Pancreas, bilateral adrenal glands and kidneys are normal. There is mi ld colonic diverticulosis with a sigmoid predominance without adjacent inflammatory change to suggest diverticulitis. Anastomotic suture line along the sigmoid colon. Small bowel and appendix are normal . There are a couple small diverticula along the right posterior bladder wall which could be related to chronic outlet obstruction from the mildly enlarged prostate which measures 4.6 x 4.1 cm. There ar e bilateral fat-containing inguinal hernias. Bilateral hydroceles. No free intraperitoneal gas or flu id. No pathologically enlarged abdominal or pelvic lymphadenopathy. Moderate lumbar spondylosis. IMPRESSION: 1. Status post partial colectomy with anastomosis in the sigmoid colon likely for reported by zainab herrera. No evident residual/locally recurrent or metastatic disease. 2. Subtle liver surface nodularity suspicious for cirrhosis with nonspecific splenomegaly and suggest ion of a few small paraesophageal varices suggesting secondary portal venous hypertension. 3. Small sliding-type hiatal hernia. 4. Bilateral fat-containing inguinal hernias bilateral hydroceles. 5. Diverticulosis. 6. Small bladder diverticula which could relate to chronic outlet obstruction from the mildly enlarge d prostate. Reviewed, dictated and finalized at location A. INSTRUCTOR IMPRESSION: 1. Status post partial colectomy with anastomosis in the sigmoid colon likely f or reported by colon cancer. No evident residual/locally recurrent or metastati c disease. 2. Subtle liver surface nodularity suspicious for cirrhosis with nonspecific sp lenomegaly and suggestion of a few small paraesophageal varices suggesting seco ndary portal venous hypertension. 3. Small sliding-type hiatal hernia. 4. Bilateral fat-containing inguinal hernias bilateral hydroceles. 5. Diverticulosis. 6. Small bladder diverticula which could relate to chronic outlet obstruction f rom the mildly enlarged prostate.
[2024-01-11 10:03] LABS: Estimated Glomerular Filt Rate > 60
== END 2024-01-11 09:31 | disposition home or self-care (01) ==
PROVIDERS: PCP Family Medicine; Visit Provider Internal Medicine Hematology & Oncology
DX: C18.4 Malignant neoplasm of transverse colon (principal); K57.30 Diverticulosis of large intestine without perforation or abscess without bleeding; K40.20 Bilateral inguinal hernia, without obstruction or gangrene, not specified as recurrent; N32.3 Diverticulum of bladder; K44.9 Diaphragmatic hernia without obstruction or gangrene
CPT/HCPCS: 74177; Q9967

== ENCOUNTER 2024-01-20 08:38 | Day surgery (SDC) | payer MEDICARE, SELFPAY ==
[2023-10-20 13:26] VITALS: BMI 24.5
[2024-01-06 09:01] VITALS: BMI 25.2
[2024-01-20 09:42] VITALS: BP 112/72; PULSE 67; RESP 18; TEMP 36.6; O2SAT 97
[2024-01-20] MEDS: LACTATED RINGERS 1,000 ML 150 ML IV CONT (09:45)
--- NOTE | 2024-01-20 10:07 | WPDANESEPPF ---
Anes - Initial Pre Proc Eval Procedure: Operation Date: 01/20/24 11:00 Proposed Procedures p Colonoscopy - Bobo Ledesma MD Date/Time: 01/20/24 10:07 Surgeon: Bobo Ledesma MD Pre Op Diagnosis: Malignant Neoplasm of Colon Unspecified Patient Data Age: 78 Gender: M Height: 1.8 m Weight: 78.9 kg Last Vital Signs Temp 36.6 C 01/20/24 09:42 Pulse 67 01/20/24 09:42 Resp 18 01/20/24 09:42 BP 112/72 01/20/24 09:42 Pulse Ox 97 01/20/24 09:42 O2 Del Method Room Air 01/20/24 09:42 Allergies Allergy/AdvReac Type Severity Reaction Status Date / Time Penicillins Allergy Mild Unknown Verified 01/20/24 09:39 mushroom Allergy Unknown HIVES Verified 01/20/24 09:39 Home Medications Medication Instructions Recorded Confirmed Type acetaminophen 650 mg 650 mg PO Q8H PRN ARTHRITIS 12/17/22 01/20/24 History tablet,extended release vitamin B complex 1 cap PO DAILY 03/04/23 01/20/24 History ondansetron HCl 8 mg tablet 4 mg PO Q8H PRN Nausea 03/16/23 01/20/24 History psyllium husk 3.4 gram/5.4 gram 1 tsp PO DAILY 05/27/23 01/20/24 History oral powder (Metamucil) lisinopril 20 mg tablet 20 mg PO DAILY #90 tabs 01/18/24 01/20/24 Rx Patient hx anesthesia problems: none Family hx anesthesia problems: none Results Review: All pre-operative results and documents have been reviewed as part of the pre-operative evaluation. [facility] Past Medical History Medical History Abscess of sigmoid colon due to diverticulitis Hypertension Malignant neoplasm of prostate Polyp of sigmoid colon Rheumatoid arthritis Surgical History Surgical History History of colon resection Hand access laparoscopic sigmoidectomy 01/14/2023 for diverticulitis and polyp Family History Family History Father Lung cancer Mother Heart disease Hypertension Social History Social History Social History: Surrogate medical decision maker: Fabi Rinaldi, spouse. Code status: Full code. Smoking packs per day: 1 Smoking cigarettes per day: 20.0 Years smoked: 6 Smoking pack-years: 6.00 Smoking status: Former smoker Tobacco type: cigarettes Second hand tobacco smoke exposure: No Smoking end date: 11/09/70 Alcohol intake: never Drinks per week: 21 Alcohol use details: 3-4 BEERS/DAILY - QUIT 06/2022 Substance use: never Substance use type: does not use Lack of Transportation: No Lack of Food: Never True Current Housing: I Have Housing Concerned About Future Housing: No Difficulty Paying Gas/Electric Bills: No Difficulty Paying for Meds: No Currently Unemployed: No Education: Associate Degree Difficulty w/ Childcare or Family Care: No Living arrangements: with family Additional living arrangements comments: The patient lives with his in [place]. Occupation/Education: retired Additional occupation/education comments: Retired. Spiritual care concerns: No Anes - Eval Final PreProcedure Day of Procedure 01/20/24 10:07 Patient weight: normal Heart: regular rate and rhythm Lungs: clear to auscultation Airway: Mallampati scale class II Neurological: alert and oriented Last oral intake: >/= 8 hours ASA classification: III Emergent: no Anesthetic plan: proceed Anesthesia type and monitoring: general GIVS and standard monitoring Results Review: All pre-operative results and documents have been reviewed as part of the pre-operative evaluation. Informed Consent: The patient's anesthetic plan and its attendant risks and benefits were discussed with the patient/family/POA. Questions were solicited and answers provided to the satisfaction of the patient/family/POA.
--- NOTE | 2024-01-20 10:12 | PM.HPGS ---
History of Present Illness History of Present Illness Consent: Risks, benefits, and alternatives have been discussed and questions answered. Patient agrees to proceed with procedure. Chief complaint: Malignant Neoplasm of Colon Unspecified Narrative: Johny Rinaldi is a 78 year old male presents for follow-up colonoscopy. One year ago patient was found to have a rather large colon polyp this subsequently was resected. There were lymph nodes involved. he has received chemotherapy. Patient presents today for follow-up exam. His bowel habits returned to normal. His weight has remained stable. He has had no bleeding. Family history noncontributory. Review of Systems Review of Systems: Review of systems noncontributory. [facility] Past Medical History Medical History Abscess of sigmoid colon due to diverticulitis Hypertension Malignant neoplasm of prostate Polyp of sigmoid colon Rheumatoid arthritis Surgical History Surgical History History of colon resection Hand access laparoscopic sigmoidectomy 01/14/2023 for diverticulitis and polyp Family History Family History Father Lung cancer Mother Heart disease Hypertension Social History Social History Social History: Surrogate medical decision maker: Fabi Rinaldi, spouse. Code status: Full code. Smoking packs per day: 1 Smoking cigarettes per day: 20.0 Years smoked: 6 Smoking pack-years: 6.00 Smoking status: Former smoker Tobacco type: cigarettes Second hand tobacco smoke exposure: No Smoking end date: 11/09/70 Alcohol intake: never Drinks per week: 21 Alcohol use details: 3-4 BEERS/DAILY - QUIT 06/2022 Substance use: never Substance use type: does not use Lack of Transportation: No Lack of Food: Never True Current Housing: I Have Housing Concerned About Future Housing: No Difficulty Paying Gas/Electric Bills: No Difficulty Paying for Meds: No Currently Unemployed: No Education: Associate Degree Difficulty w/ Childcare or Family Care: No Living arrangements: with family Additional living arrangements comments: The patient lives with his in [place]. Occupation/Education: retired Additional occupation/education comments: Retired. Spiritual care concerns: No Meds Home Medications and Allergies Home Medications Medication Instructions Recorded Confirmed Type acetaminophen 650 mg 650 mg PO Q8H PRN ARTHRITIS 12/17/22 01/20/24 History tablet,extended release vitamin B complex 1 cap PO DAILY 03/04/23 01/20/24 History ondansetron HCl 8 mg tablet 4 mg PO Q8H PRN Nausea 03/16/23 01/20/24 History psyllium husk 3.4 gram/5.4 gram 1 tsp PO DAILY 05/27/23 01/20/24 History oral powder (Metamucil) lisinopril 20 mg tablet 20 mg PO DAILY #90 tabs 01/18/24 01/20/24 Rx Allergies Allergy/AdvReac Type Severity Reaction Status Date / Time Penicillins Allergy Mild Unknown Verified 01/20/24 09:39 mushroom Allergy Unknown HIVES Verified 01/20/24 09:39 Vital Signs Vital Signs - 24 hr 01/20/24 09:42 Temperature 97.9 F Pulse Rate 67 Respiratory Rate 18 Blood Pressure 112/72 Pulse Oximetry 97 Oxygen Delivery Room Air Exam Narrative: Physical exam reveals patient to be alert. Vital signs stable. A CT exam is unremarkable. Patient is anicteric. Lungs are clear to auscultation and percussion. Heart is without murmur or extra sounds. Abdomen bowel sounds are present soft nontender with no organomegaly. Digital external rectal exam normal. Assessment and Plan Assessment and plan (1) Cancer of sigmoid colon: Code(s): C18.7 - Malignant neoplasm of sigmoid colon Status: Acute Assessment and Plan: History of cancer of the colon n
[2024-01-20] MEDS: SIMETHICONE ORAL SUSPENSION 20 MG/0.3 ML 30 ML BOTTLE 0.6 ML IRRIGATION (11:02)
[2024-01-20 11:10] VITALS: BP 87/57; PULSE 62; RESP 14; O2SAT 98
[2024-01-20 11:20] VITALS: BP 102/72; PULSE 54; RESP 20; O2SAT 100
--- NOTE | 2024-01-20 11:24 | WPDANESPN ---
Anes - Prog Note Post-Op Date/Time: 01/20/24 11:24 Cardiovascular status: normal Respiratory status: normal Airway patency: baseline Mental status: baseline Post-Op hydration status: normal Vital Signs: Last Vital Signs Temp 36.6 C 01/20/24 09:42 Pulse 62 01/20/24 11:10 Resp 14 01/20/24 11:10 BP 87/57 L 01/20/24 11:10 Pulse Ox 98 01/20/24 11:10 O2 Del Method Room Air 01/20/24 11:10 Pain Score (VAS): 0 I/O: Intake & Output 01/19/24 01/20/24 01/20/24 23:59 07:59 15:59 Intake Total 500 Balance 500 Patient Feedback: Patient satisfied with anesthetic care.
[2024-01-20 11:30] VITALS: BP 110/68; PULSE 49; RESP 20; O2SAT 100
== END 2024-01-20 11:41 | disposition home or self-care (01) ==
PROVIDERS: PCP Family Medicine; Visit Provider Internal Medicine Gastroenterology
PROC: 0DJD8ZZ Inspection of Lower Intestinal Tract, Via Natural or Artificial Opening Endoscopic (ICD-10-PCS; CPT 45378; principal; 2024-01-20 11:00)
DX: Z85.038 Personal history of other malignant neoplasm of large intestine (principal); K57.30 Diverticulosis of large intestine without perforation or abscess without bleeding; K63.89 Other specified diseases of intestine; K64.8 Other hemorrhoids
CPT/HCPCS: 45378

== ENCOUNTER 2024-04-18 00:54 | Day surgery (SDC) | payer MEDICARE, SELFPAY ==
[2024-04-12 15:08] VITALS: BMI 25.1
--- NOTE | 2024-04-12 15:14 | PC.NURSE ---
Report to the Outpatient Waiting Room, entrance under the green pavilion located off [facility], at time ___07____ on date __04/18/24 . Planned Procedure Time: ___09 . Time changes happen often and if your time is changed the preop area will call you the afternoon before. - You and your visitor will be asked to self-screen and do not enter if you have any COVID symptoms. - A mask is optional within the hospital at this time. Patients may have clear liquids (water, carbonated beverages, clear teas, apple juice) until 3 hours prior to surgery (0600 AM) with a maximum of 20 ounces. - No food from midnight until time of surgery - Infants may have breast milk until 4 hours before surgery, formula 6 hours prior to surgery. - Children will be allowed to drink immediately following surgery. If applicable, please bring a bottle or sippy cup to assist with drinking. Juice, water, soda, and popsicles are readily available. For infants on formula, please bring formula the day of surgery. Pacifiers are allowed. Take the following medications with a SIP of water the morning of surgery: TYLENOL IF NEEDED DO NOT STOP ANY OF YOUR OTHER PRESCRIPTION MEDICATIONS PRIOR TO SURGERY ?EXCEPT THE FOLLOWING Medications to discontinue per physician N/A Date to take last dose Please no make-up, nail khmer, hairspray, perfume, deodorant, or body powder the day of surgery. No jewelry (including any body piercings) or valuables the day of surgery, leave them at home. Please take a shower or bath the night before, or the morning of, surgery with an antibacterial soap. Wear comfortable, loose fitting clothing. Children are encouraged to wear pajamas. - Jewelry must be removed prior to entering the operating room. Rings and piercings that are not removed may be cut off. - The hospital will not accept responsibility for valuables. - Please leave all valuables, including medications, at home the day of surgery. If you are going home after surgery, a licensed line driver must drive you home. - NO public transportation without another adult if you receive anesthesia. - We recommend that an adult stay with you for 24 hours following discharge. - We also recommend that you do not drive, make important decision, drink alcoholic beverages, or take any drugs that were not prescribed by your health care provider for at least 24 hours after your discharge time. For Pediatric surgeries, we recommend two adults accompany the child home. Follow any additional instructions given to you from your surgeon. If you or anyone in your household have experienced Covid symptoms in the past week, please notify your surgeon or the nurse liaison at the phone number below for possible testing. Telephone instructions given to ____PT and asked if any additional questions and then verbalized understanding. Patient advised to call surgeon office or pre surgery nurse liaison [phone] if any additional questions.
[2024-04-18] VITALS (8 sets, daily range): BP systolic 95–123; BP diastolic 56–75; PULSE 48–60; RESP 12–18; TEMP 36.3; O2SAT 97–100
--- NOTE | 2024-04-18 09:02 | WPDANESEPPF ---
Anes - Initial Pre Proc Eval Procedure: Operation Date: 04/18/24 10:30 Proposed Procedures p Removal Elaine Cath - Raven Zapata MD Date/Time: 04/18/24 09:02 Surgeon: Raven Zpaata MD Pre Op Diagnosis: malignant neoplasm transverse colon Patient Data Age: 79 Gender: M Height: 1.8 m Weight: 81.81 kg Allergies Allergy/AdvReac Type Severity Reaction Status Date / Time Penicillins Allergy Mild Unknown- Verified 04/12/24 15:05 A CHILD mushroom Allergy Unknown HIVES Verified 04/12/24 15:05 Home Medications Medication Instructions Recorded Confirmed Type acetaminophen 650 mg 650 mg PO Q8H PRN ARTHRITIS 12/17/22 04/12/24 History tablet,extended release vitamin B complex 1 cap PO DAILY 03/04/23 04/12/24 History ondansetron HCl 8 mg tablet 4 mg PO Q8H PRN Nausea 03/16/23 04/12/24 History psyllium husk 3.4 gram/5.4 gram 1 tsp PO DAILY 05/27/23 04/12/24 History oral powder (Metamucil) lisinopril 20 mg tablet 20 mg PO DAILY #90 tabs 01/18/24 04/12/24 Rx docusate sodium 100 mg tablet 200 mg PO DAILY 04/12/24 04/12/24 History (Stool Softener) Patient hx anesthesia problems: none Family hx anesthesia problems: none Results Review: All pre-operative results and documents have been reviewed as part of the pre-operative evaluation. [facility] Past Medical History Medical History Abscess of sigmoid colon due to diverticulitis Hypertension Malignant neoplasm of prostate Polyp of sigmoid colon Rheumatoid arthritis Surgical History Surgical History History of colon resection Hand access laparoscopic sigmoidectomy 01/14/2023 for diverticulitis and polyp Family History Family History Father Lung cancer Mother Heart disease Hypertension Social History Social History Social History: Surrogate medical decision maker: Arbela Pacewic, spouse. Code status: Full code. Smoking packs per day: 1 Smoking cigarettes per day: 20.0 Years smoked: 6 Smoking pack-years: 6.00 Smoking status: Former smoker Tobacco type: cigarettes Second hand tobacco smoke exposure: No Smoking end date: 11/09/70 Alcohol intake: former Drinks per week: 21 Alcohol use details: 3/4 BEERS/DAY-QUIT 06/30 Substance use: never Substance use type: does not use Lack of Transportation: No Lack of Food: Never True Current Housing: I Have Housing Concerned About Future Housing: No Difficulty Paying Gas/Electric Bills: No Difficulty Paying for Meds: No Currently Unemployed: No Education: Associate Degree Difficulty w/ Childcare or Family Care: No Living arrangements: with family Additional living arrangements comments: The patient lives with his in [place]. Occupation/Education: retired Additional occupation/education comments: Retired. Spiritual care concerns: No Anes - Eval Final PreProcedure Day of Procedure 04/18/24 09:02 Patient weight: normal Heart: regular rate and rhythm Lungs: clear to auscultation Airway: Mallampati scale class II Neurological: alert and oriented Last oral intake: >/= 8 hours ASA classification: III Emergent: no Anesthetic plan: proceed Anesthesia type and monitoring: general GIVS and standard monitoring Results Review: All pre-operative results and documents have been reviewed as part of the pre-operative evaluation. Informed Consent: The patient's anesthetic plan and its attendant risks and benefits were discussed with the patient/family/POA. Questions were solicited and answers provided to the satisfaction of the patient/family/POA.
[2024-04-18] MEDS: LACTATED RINGERS 1,000 ML 30 ML IV CONT (09:30)
--- NOTE | 2024-04-18 09:54 | PM.IMHP ---
H&P: HPI History of Present Illness Date/Time: 04/18/24 09:54 Chief Complaint: Port removal Narrative: The patient is a 79-year-old male presenting to the hospital for port removal. The patient had a port placed for chemotherapy access approximately a year and half ago. The patient has now completed adjuvant chemotherapy for colon cancer. The patient denies any issues with the port. Review of Systems Review of Systems: All systems reviewed & are unremarkable except as noted in HPI and below PMFSH Past Medical History Medical History Abscess of sigmoid colon due to diverticulitis Hypertension Malignant neoplasm of prostate Polyp of sigmoid colon Rheumatoid arthritis Surgical History Surgical History History of colon resection Hand access laparoscopic sigmoidectomy 01/14/2023 for diverticulitis and polyp Family History Family History Father Lung cancer Mother Heart disease Hypertension Social History Social History Social History: Surrogate medical decision maker: Fabi Rinaldi, spouse. Code status: Full code. Smoking packs per day: 1 Smoking cigarettes per day: 20.0 Years smoked: 6 Smoking pack-years: 6.00 Smoking status: Former smoker Tobacco type: cigarettes Second hand tobacco smoke exposure: No Smoking end date: 11/09/70 Alcohol intake: former Drinks per week: 21 Alcohol use details: 3/4 BEERS/DAY-QUIT 06/30 Substance use: never Substance use type: does not use Lack of Transportation: No Lack of Food: Never True Current Housing: I Have Housing Concerned About Future Housing: No Difficulty Paying Gas/Electric Bills: No Difficulty Paying for Meds: No Currently Unemployed: No Education: Associate Degree Difficulty w/ Childcare or Family Care: No Living arrangements: with family Additional living arrangements comments: The patient lives with his in [place]. Occupation/Education: retired Additional occupation/education comments: Retired. Spiritual care concerns: No Meds Home Medications and Allergies Home Medications Medication Instructions Recorded Confirmed Type acetaminophen 650 mg 650 mg PO Q8H PRN ARTHRITIS 12/17/22 04/18/24 History tablet,extended release vitamin B complex 1 cap PO DAILY 03/04/23 04/18/24 History ondansetron HCl 8 mg tablet 4 mg PO Q8H PRN Nausea 03/16/23 04/18/24 History psyllium husk 3.4 gram/5.4 gram 1 tsp PO DAILY 05/27/23 04/18/24 History oral powder (Metamucil) lisinopril 20 mg tablet 20 mg PO DAILY #90 tabs 01/18/24 04/18/24 Rx docusate sodium 100 mg tablet 200 mg PO DAILY 04/12/24 04/18/24 History (Stool Softener) Allergies Allergy/AdvReac Type Severity Reaction Status Date / Time Penicillins Allergy Mild Unknown- Verified 04/18/24 09:21 A CHILD mushroom Allergy Unknown HIVES Verified 04/18/24 09:21 Vital Signs Vital Signs - 24 hr 04/18/24 08:52 Temperature 36.3 C L Pulse Rate 60 Respiratory Rate 18 Blood Pressure 123/75 Pulse Oximetry 97 Oxygen Delivery Room Air Exam Const: General: cooperative, comfortable and no acute distress Neck: Neck: normal visual inspection and no lymphadenopathy Chest: Other: R chest VAD - C/D/I Resp: Auscultation: clear to auscultation bilaterally Cardio: Rate: regular rate Rhythm: regular rhythm Assessment and Plan Assessment and plan (1) Colon cancer: Code(s): C18.9 - Malignant neoplasm of colon, unspecified Status: Acute Assessment and Plan: Status post adjuvant treatment, will remove Port-A-Cath in the operating room
--- NOTE | 2024-04-18 09:56 | WPDHPUPDATE1 ---
History and Physical Update Update Date/Time: 04/18/24 09:56 History and Physical has been reviewed, including an updated exam of the patient. There are NO changes in the patient's condition. Risks, benefits, and alternatives have been discussed and questions answered. Patient agrees to proceed with procedure.
[2024-04-18] MEDS: ceFAZolin 2 GM/D5W 50 ML 2 GM/50 ML BAG IVPB (10:17)
[2024-04-18] MEDS: BUPIVACAINE/EPINEPHRINE 0.5% 10 ML VIAL 20 ML INFILTRATE (10:33)
--- NOTE | 2024-04-18 10:43 | P.OP_ITS ---
Procedure Note - Detailed Date of Procedure 04/18/24 Pre-op Diagnosis Colon cancer status post adjuvant therapy Post-op Diagnosis Same Procedure Performed removal R chest VAD Surgeon Raven Zapata MD Anesthesia General and Local Indications 79 y/o M s/p treatment for colon cancer. Pt had R sided VAD placed about a year and a half ago. Findings RIJ VAD Description of Procedure The patient was taken to the operating room and placed in the supine position. The patient was then prepped and draped in the normal sterile fashion. A time- out was then done to verify the patient's identity, as well as the procedure being performed. I began by localizing the area of the previously placed port in the right chest. After the area was adequately anesthetized, I made an incision through the previous incision to gain access to the port in the subcutaneous tissue. I was then able to identify the port and using dissection with the Bovie cautery, I was able to free the reservoir from the subcutaneous pocket. The reservoir was being held in by 2 sutures and these were subsequently cut. I was then able to remove the reservoir from the pocket. I then removed the catheter from the right internal jugular vein in full. I then held pressure at the level the right internal jugular vein for approximately 5 minutes. Hemostasis was noted and I irrigated the pocket. I then closed the subcutaneous tissue with 3-0 Vicryl suture. The skin was closed with 4-0 Monocryl subcuticular suture. Dermabond was placed on the wound. The patient tolerated the procedure well and was alert and awake in the operating room postoperative. The patient will be sent to the recovery room in stable condition. Estimated Blood Loss 5 Drains No Packing No Pathology None sent Complications No immediate complications Condition Stable Disposition PACU [facility] Billing Surgery - Charge Forward: Surgery Billing
--- NOTE | 2024-04-18 11:13 | SUR.PHASEI ---
Simple mask removed at 1112
--- NOTE | 2024-04-18 12:23 | SUR.PHASEII ---
Dr Jeffery aware of pulse in upper 40's no new orders ok to discharge to home.
== END 2024-04-18 12:45 | disposition home or self-care (01) ==
PROVIDERS: PCP Family Medicine; Visit Provider Surgery
PROC: (CPT 36589; principal; 2024-04-18 10:30)
DX: Z45.2 Encounter for adjustment and management of vascular access device (principal); Z85.038 Personal history of other malignant neoplasm of large intestine; I10 Essential (primary) hypertension; Z87.891 Personal history of nicotine dependence
CPT/HCPCS: 36590; J0690; J1100; J2405; J2704; J3010; J7120

== ENCOUNTER 2024-05-05 11:36 | Outpatient (CLI) | payer MEDICARE, SELFPAY ==
--- NOTE | ~2024-05-05 | XR_ITS ---
XR chest 2V Ordering provider: Farrah Milian PA-C History: 79 years Male with . R05.9 - Cough, CONGESTION X 1 WEEK . Comparison: March 09, 2023 FINDINGS: MEDIASTINUM: The cardiac silhouette is not enlarged. LUNGS: No infiltrates, effusions or pneumothorax. OTHER: No free air under the diaphragm. IMPRESSION: No acute cardiopulmonary pathology. Reviewed, dictated and finalized at location A.
== END 2024-05-05 11:37 | disposition home or self-care (01) ==
PROVIDERS: PCP Family Medicine; Visit Provider Physician Assistant Medical
DX: R05.9 Cough, unspecified (principal); R53.83 Other fatigue
CPT/HCPCS: 71046

== ENCOUNTER 2024-08-05 12:59 | Outpatient (CLI) | payer MEDICARE, SELFPAY ==
[2024-08-05 13:12] LABS: Basophils Absolute Auto 0.1 K/mm3 (0.0-0.1); Basophils Percent Auto 0.9 % (0.2-1.2); Eosinophils Absolute Auto 0.3 K/mm3 (0-0.3); Eosinophils Percent Auto 4.6 % (0-4.4); Hematocrit 41.8 % (42.0-52.0); Hemoglobin 14.5 g/dL (14.0-18.0); Immature Granulocyte Absolute 0.01 K/mm3 (0.00-0.031); Immature Granulocyte Percent A 0.2 % (0-0.5); Lymphocytes Absolute Auto 2.91 K/mm3 (0.9-3.2); Mean Corpuscular HGB Conc 34.7 g/dl (32-36); Mean Corpuscular Hemoglobin 32.2 pg (26-34); Mean Corpuscular Volume 92.7 fl (80-100); Monocytes Absolute Auto 0.6 K/mm3 (0.1-0.6); Neutrophils Absolute Auto 1.9 K/mm3 (1.3-6.7); Neutrophils Percent Auto 32.3 % (45.5-73.1); Platelet Count Result 161 k/mm3 (150-375); Red Blood Count 4.51 M/mm3 (4.6-6.20); Red Cell Distribution Width 12.8 % (11.5-14.5); White Blood Count 5.7 K/mm3 (4.5-10.0)
[2024-08-05 15:49] LABS: Alanine Aminotransferase 46 U/L (6-50); Albumin Level 4.1 g/dL (3.5-5.1); Alkaline Phosphatase 71 U/L (38-126); Anion Gap 11 mmol/L (4-12); Aspartate Amino Transferase 53 U/L (17-59); Bilirubin,Total 0.6 mg/dL (0.2-1.3); Blood Urea Nitrogen 12 mg/dL (9-20); Carbon Dioxide 23 mmol/L (22-30); Chloride 104 mmol/L (98-107); Estimated Glomerular Filt Rate > 60; Glucose 67 mg/dL (65-110); Potassium 4.2 mmol/L (3.4-5.0); Sodium 138 mmol/L (137-145)
[2024-08-05 16:22] LABS: Carcinoembryonic Antigen 1.4 ng/mL (0.0-3.0)
== END 2024-08-05 13:00 | disposition home or self-care (01) ==
LOC: ANHLAB 13:00
PROVIDERS: PCP Family Medicine; Visit Provider Internal Medicine Hematology & Oncology
DX: C18.4 Malignant neoplasm of transverse colon (principal)
CPT/HCPCS: 36415; 80053; 82378; 85025

== ENCOUNTER 2025-02-07 10:52 | Outpatient (CLI) | payer MEDICARE, SELFPAY ==
[2025-02-07 11:06] LABS: Basophils Percent Auto 0.7 % (0.2-1.2); Eosinophils Absolute Auto 0.2 K/mm3 (0-0.3); Eosinophils Percent Auto 3.9 % (0-4.4); Hematocrit 46.3 % (42.0-52.0); Hemoglobin 15.6 g/dL (14.0-18.0); Immature Granulocyte Absolute 0.01 K/mm3 (0.00-0.031); Immature Granulocyte Percent A 0.2 % (0-0.5); Lymphocytes Percent Auto 41.2 % (18.3-44.2); Mean Corpuscular HGB Conc 33.7 g/dl (32-36); Mean Corpuscular Hemoglobin 31.6 pg (26-34); Mean Corpuscular Volume 93.7 fl (80-100); Mean Platelet Volume 9.5 fl (7.4-10.4); Monocytes Absolute Auto 0.4 K/mm3 (0.1-0.6); Monocytes Percent Auto 6.5 % (2.6-8.5); Neutrophils Absolute Auto 2.7 K/mm3 (1.3-6.7); Neutrophils Percent Auto 47.5 % (45.5-73.1); Platelet Count Result 171 k/mm3 (150-375); Red Blood Count 4.94 M/mm3 (4.6-6.20); Red Cell Distribution Width 12.6 % (11.5-14.5); White Blood Count 5.6 K/mm3 (4.5-10.0)
--- OUTSIDE RECORDS SUMMARY | 2025-02-07 12:06 | XMS_ITS | Clinical Summary ---
Author Organization [facility] Address [address] [place] [address] Care Team Providers Care Human Resources Training Manager Name Role Phone Joseph Zhang MD Primary Care Provider Allergies Active Allergy Reactions Criticality Noted Date Comments Penicillins Active Problems Problem Noted Date Diagnosed Date Hypertension 03/25/2014 Overview (02/14/2017): HYPERTENSION NOS Echocardiogram normal 03/25/2014 Overview (02/14/2017): Normal echocardiogram Social History Tobacco Use Types Packs/Day Years Used Date Smoking Tobacco: Never Assessed Personal Safety Answer Date Recorded Getting School Help Needed Not on file Sex and Gender Information Value Date Recorded Sex Assigned at Not on file Legal 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 Gender Identity Not on file Sexual Orientation Not on file Last Filed Vital Signs Vital Sign Reading Time Taken Comments Blood Pressure - - Pulse - - Temperature - - Respiratory Rate - - Oxygen Saturation - - Inhaled Oxygen Concentration - - Weight 74.4 kg (164 lb) 11/24/2022 5:12 PM RESIDENTIAL MENTAL HEALTH WORKER Height 180.3 cm (5' 11 ) 11/24/2022 5:12 PM RESIDENTIAL MENTAL HEALTH WORKER Body Mass Index 22.87 11/24/2022 5:12 PM RESIDENTIAL MENTAL HEALTH WORKER Plan of Treatment Health Maintenance Due Date Last Done Comments Depression Screening 1945 Fall Risk Assessment 1945 Hepatitis C Screening 1945 Hepatitis B Screening 1963 Pneumococcal vaccine 65+ (1 of 1 - PCV) 1995 Zoster Vaccine (1 of 2) 1995 Well Visit 65+ 2010 Covid-19 Vaccine (2023-2 5 season) 2024 08/25/2022, 03/14/2022, 10/07/2021, Additional history exists Influenza Vaccine (#1) 2024 , 08/15/2021, 08/14/2020, Additional history exists DTaP/Tdap/Td Vaccine (2 - Td or Tdap) 03/26/2032 03/26/2022 Insurance [facility] Address: [id number] [place] [address] [facility] [employer] [facility] Address: [address] [address] [place] [address] Care Teams Human Resources Training Manager Relationship Specialty Start Date End Date Joseph Zhang MD [address] [facility] [address] [place] [address] PCP - General Family Medicine 09/02/22
--- OUTSIDE RECORDS SUMMARY | 2025-02-07 12:06 | XMS_ITS | Clinical Summary ---
[facility] Address [address] [facility] [place] [address] Care Team Providers Care Nnp Name Role Phone Joseph Zhang MD Primary Care Provider Allergies Active Allergy Reactions Criticality Noted Date Comments Penicillins Rash Low 02/25/2023 Medications lisinopriL (PRINIVIL) 20 mg tablet Take 20 mg by mouth daily. 3 Active acetaminophen (TYLENOL) 325 mg tablet Take 325 mg by mouth every 4 hours as needed. Active viatamin B complex-vitami n B-xfrfgvli-kib n-folic acid 106 mg iron- 1 mg Tablet Take 1 Tablet by mouth daily. Active fluticasone propionate (FLONASE) 50 mcg/spray [place], Suspension nasal inhaler Administer 2 Sprays in each nostril daily. Active meclizine (ANTIVERT) 25 mg tablet Take 25 mg by mouth 3 times daily as needed for Dizziness. Active lidocaine-pril ocaine (EMLA) 2.5-2.5 % Cream Apply to affected area see administration instructions. 30 Gram 3 Active ondansetron (Zofran) 8 mg Tablet Take 1 Tablet (8 mg) by mouth every 8 hours as needed for Nausea/Emesis. 30 Tablet 1 3 Active diphenhydrAMIN E12.5 mg/5 mL-viscous lidocaine-Maal ox 1:1:1 (MAGIC MOUTHWASH) oral suspension compoundIndica tions:Malignan t neoplasm of transverse colon (CMS/HCC),Muco sitis Take 5 mL by mouth every 4 hours as needed for Pain (swish and swallow or swish and spit). 240 mL 3 Active Active Problems No known active problems Encounters Date Type Department Care Team Description 01/25/2025 External Device Data [facility]STRACTION Provider, Abstract 01/14/2025 External Device Data [facility]CTION Provider, Abstract 01/14/2025 External Device Data [facility]CTION Provider, Abstract 12/28/2024 External Device Data [facility] Provider, Abstract 12/01/2024 External Device Data [facility]STRACTION Provider, Abstract from Last 3 Months Family History Medical History Relation Name Comments Cancer Brother 2 Lung Cancer Father Heart Disease Mother Relation Name Status Comments Brother 1 Brother 2 Alive Brother 3 Alive Daughter Alive Father Mother Sister 1 Alive Sister 2 Alive Son Alive Social History Tobacco Use Types Packs/Day Years Used Date Smoking Tobacco: Former Cigarettes Q uit: 1970 Smokeless Tobacco: Never Tobacco Cessation:Counseling Given: Not Answered Alcohol Use Standard Drinks/Week Comments Not Currently 0 (1 standard drink = 0.6 oz pur e alcohol) Sex and Gender Information Value Date Recorded Sex Assigned at Not on file Legal Sex Male 7:51 AM CDT Gender Identity Not on file Sexual Orientation Not on file Last Filed Vital Signs Vital Sign Reading Time Taken Comments Blood Pressure 140/65 08/12/2024 10:55 AM CDT Pulse 65 08/12/2024 10:55 AM CDT Temperature 36.3 C (97.3 F) 08/12/2024 10:55 AM CDT Respiratory Rate 18 08/12/2024 10:55 AM CDT Oxygen Saturation 94% 08/12/2024 10:55 AM CDT Inhaled Oxygen Concentration - - Weight 84.8 kg (187 lb) 08/12/2024 10:55 AM CDT Height 180.3 cm (5' 11 ) 02/25/2023 1:28 PM CDT Body Mass Index 26.08 02/25/2023 1:28 PM CDT Plan of Treatment Upcoming Encounters Date Type Department Care Team (Late st Contact Info) Description 02/14/2025 11:00 AM CDT Office Visit [facility] - S[facility]arth[address] [place] [phone] Neel Baptiste MD [address] [facility] [address] [place] [address] Health Maintenance Due Date Last Done Comments DTAP/TDAP/TD VACCINES (1 - Tdap) 1964 PNEUMOCOCCAL VACCINE 50+ YEARS (1 of 1 - PCV) 04/08/19 95 ZOSTER VACCINE (1 of 2) 1995 RSV VACCINE (60+ or ) (1 - 1-dose 75+ series) 2020 INFLUENZA VACCINE (#1) 2024 Medicare [place] Prev entative Visit/Annual Wellness Visit 11/09/2024 Insurance Care Teams Nnp Relationship Specialty Start Date End Date Joseph Zhang MD [address] [facility] [address] [place] [address] PCP - General Family Practice 02/25/23
--- OUTSIDE RECORDS SUMMARY | 2025-02-07 12:06 | XMS_ITS | Referral Summary ---
Author Organization 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 Gender Identity Not on file Sexual Orientation Not on file Last Filed Vital Signs Vital Sign Reading Time Taken Comments Blood Pressure - - Pulse - - Temperature - - Respiratory Rate - - Oxygen Saturation - - Inhaled Oxygen Concentration - - Weight 74.4 kg (164 lb) 11/24/2022 5:12 PM INTEGRATION ASSISTANT Height 180.3 cm (5' 11 ) 11/24/2022 5:12 PM INTEGRATION ASSISTANT Body Mass Index 22.87 11/24/2022 5:12 PM INTEGRATION ASSISTANT Plan of Treatment Not on file Insurance [facility] MEDICARE ADVANTAGE [facility] MEDICARE ADVANTAGE Care Teams Commercial Kitchen Service Technician Relationship Specialty Start Date End Date Joseph Zhang MD [address] [facility] [address] [place] [address] PCP - General Family Medicine 09/02/22
[2025-02-07 12:45] LABS: Alanine Aminotransferase 22 U/L (6-50); Albumin Level 4.3 g/dL (3.5-5.1); Alkaline Phosphatase 66 U/L (38-126); Anion Gap 10 mmol/L (4-12); Aspartate Amino Transferase 28 U/L (17-59); Bilirubin,Total 0.6 mg/dL (0.2-1.3); Blood Urea Nitrogen 14 mg/dL (9-20); Calcium 9.6 mg/dL (8.4-10.2); Carbon Dioxide 25 mmol/L (22-30); Chloride 104 mmol/L (98-107); Estimated Glomerular Filt Rate > 60; Glucose 69 mg/dL (65-110); Potassium 4.5 mmol/L (3.4-5.0); Sodium 139 mmol/L (137-145)
[2025-02-07 13:12] LABS: Carcinoembryonic Antigen 1.5 ng/mL (0.0-3.0)
== END 2025-02-07 10:53 | disposition home or self-care (01) ==
LOC: ANHLAB 10:53
PROVIDERS: PCP Family Medicine; Visit Provider Internal Medicine Hematology & Oncology
DX: C18.4 Malignant neoplasm of transverse colon (principal)
CPT/HCPCS: 36415; 80053; 82378; 85025

== ENCOUNTER 2025-03-02 10:08 | Outpatient (CLI) | payer MEDICARE, SELFPAY ==
--- NOTE | ~2025-03-02 | US_ITS ---
Limited Abdominal Sonogram: Real-time sonographic imaging of the right upper quadrant was performed. Clinical History: Cirrhosis Findings: The liver appears minimally heterogeneous with no evidence of mass lesion or bile duct dil atation. Main portal vein demonstrates normal direction of flow. The gallbladder is well distended, a nd appears normal with no evidence of gallstone or wall thickening. The common bile duct measures 4 m m. The visualized pancreas, aorta, and IVC are unremarkable. Impression: Mildly heterogeneous hepatic echotexture. Correlate clinically for cirrhosis. No suspicious mass lesi on identified. Reviewed, dictated and finalized at location M. Impression: Mildly heterogeneous hepatic echotexture. Correlate clinically for cirrhosis. N o suspicious mass lesion identified.
--- OUTSIDE RECORDS SUMMARY | 2025-03-02 11:21 | XMS_ITS | Referral Summary ---
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 SPECIALIST Gender Identity Not on file Sexual Orientation Not on file Last Filed Vital Signs Vital Sign Reading Time Taken Comments Blood Pressure - - Pulse - - Temperature - - Respiratory Rate - - Oxygen Saturation - - Inhaled Oxygen Concentration - - Weight 74.4 kg (164 lb) 11/24/2022 5:12 PM HEALTH INFORMATION SPECIALIST Height 180.3 cm (5' 11 ) 11/24/2022 5:12 PM HEALTH INFORMATION SPECIALIST Body Mass Index 22.87 11/24/2022 5:12 PM HEALTH INFORMATION SPECIALIST Plan of Treatment Not on file Insurance [facility] MEDICARE ADVANTAGE [facility] MEDICARE ADVANTAGE Care Teams Bb Shot Packer Relationship Specialty Start Date End Date Joseph Zhang MD [address] [facility] 120 [place] [address] PCP - General Family Medicine 09/02/22
--- OUTSIDE RECORDS SUMMARY | 2025-03-02 11:21 | XMS_ITS | Clinical Summary ---
Author Organization [facility] Christine jacki Andrew Address [address] [place] [address] Care Team Providers Care Caponizer Name Role Phone Joseph Zhang MD Primary Care Provider Allergies Active Allergy Reactions Criticality Noted Date Comments Penicillins Rash Low 02/25/2023 Medications lisinopriL (PRINIVIL) 20 mg tablet Take 20 mg by mouth daily. 3 Active fluticasone propionate (FLONASE) 50 mcg/spray [place], Suspension nasal inhaler Administer 2 Sprays in each nostril daily. Active meclizine (ANTIVERT) 25 mg tablet Take 25 mg by mouth 3 times daily as needed for Dizziness. Active ondansetron (Zofran) 8 mg Tablet Take 1 Tablet (8 mg) by mouth every 8 hours as needed for Nausea/Emesis. 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) 01/25/2025 External Device Data STL ABSTRACTION Provider, [...] Sign Reading Time Taken Comments Blood Pressure 153/71 02/14/2025 10:50 AM CDT Pulse 64 02/14/2025 10:44 AM CDT Temperature 36.2 C (97.1 F) 02/14/2025 10:44 AM CDT Respiratory Rate 16 02/14/2025 10:4 4 AM CDT Oxygen Saturation 93% 02/14/2025 10: 44 AM CDT Inhaled Oxygen Concentration - - Weight 85.2 kg (187 lb 12.8 oz) 025 10:44 AM CDT Height 180.3 cm (5' 11 ) 02/25/2023 1:28 PM CDT Body Mass Index 26.19 02/25/2023 1:28 PM CDT Plan of Treatment Upcoming Encounters Date Type Department Care Team (Late st Contact Info) Description 08/21/2025 11:00 AM CDT Office Visit [facility] Oncology and Hematology - Siddhartha [address] [facility] [address] [place] [address] Neel Baptiste MD [address] [facility] [address] [place] [address] Health Maintenance Due Date Last Done Comments DTAP/TDAP/TD VACCINES (1 - Tdap) 1964 PNEUMOCOCCAL VACCINE 50+ YEARS (1 of 1 - PCV) 04/08/19 95 ZOSTER VACCINE (1 of 2) 1995 RSV VACCINE (60+ or ) (1 - 1-dose 75+ series) 2020 INFLUENZA VACCINE (#1) 2024 Insurance [facility] [id number] Member Subscriber Plan / Payer (Ef fective 2022-Present) Name:Johny Rinaldi Relation to Subscriber:Self Name:Johny Rinaldi Garfield Payer ID:[id number] (NAIC) Type:PPO Address: [place] [id number] Care Teams Caponizer Relationship Specialty Start Date End Date Joseph Zhang MD [address] [facility] 120 [place] [address] PCP - General Family Practice 02/25/23
--- OUTSIDE RECORDS SUMMARY | 2025-03-02 11:21 | XMS_ITS | Clinical Summary ---
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 RADIO SCRIPT WRITER Gender Identity Not on file Sexual Orientation Not on file Last Filed Vital Signs Vital Sign Reading Time Taken Comments Blood Pressure - - Pulse - - Temperature - - Respiratory Rate - - Oxygen Saturation - - Inhaled Oxygen Concentration - - Weight 74.4 kg (164 lb) 11/24/2022 5:12 PM RADIO SCRIPT WRITER Height 180.3 cm (5' 11 ) 11/24/2022 5:12 PM RADIO SCRIPT WRITER Body Mass Index 22.87 11/24/2022 5:12 PM RADIO SCRIPT WRITER Plan of Treatment Health Maintenance Due Date Last Done Comments Depression Screening 1945 Fall Risk Assessment 1945 Hepatitis C Screening 1945 Hepatitis B Screening 1963 Pneumococcal vaccine 65+ (1 of 1 - PCV) 1995 Zoster Vaccine (1 of 2) 1995 Well Visit 65+ 2010 Covid-19 Vaccine (2023-2 5 season) 2024 08/25/2022, 03/14/2022, 10/07/2021, Additional history exists Influenza Vaccine (Season Ended) 2025 08/17/2022, 08/15/2021, 08/14/2020, Additional history exists DTaP/Tdap/Td Vaccine (2 - Td or Tdap) 03/26/2032 03/26/2022 Insurance [facility] MED[facility] Address: [id number] [place] [address] [facility] MEDICARE ADVANTAGE [facility] MED[facility] Address: [address] [address] [place] [address] Care Teams Blasting Machine Operator Relationship Specialty Start Date End Date Joseph Zhang MD [address] [facility] 120 [place] [address] PCP - General Family Medicine 09/02/22
== END 2025-03-02 10:09 | disposition home or self-care (01) ==
PROVIDERS: PCP Family Medicine; Visit Provider Physician Assistant
DX: R93.5 Abnormal findings on diagnostic imaging of other abdominal regions, including retroperitoneum (principal); K74.60 Unspecified cirrhosis of liver
CPT/HCPCS: 76705

== ENCOUNTER 2025-03-14 09:43 | Outpatient (CLI) | payer MEDICARE, SELFPAY ==
--- OUTSIDE RECORDS SUMMARY | 2025-03-14 10:27 | XMS_ITS | Clinical Summary ---
Author Organization [facility] Address [address] [place] [address] Care Team Providers Care Wallpaperer Name Role Phone Joseph Zhang MD Primary [...] on file Legal Sex Male 1:00 AM DYE MAKER Gender Identity Not on file Sexual Orientation Not on file Last Filed Vital Signs Vital Sign Reading Time Taken Comments Blood Pressure - - Pulse - - Temperature - - Respiratory Rate - - Oxygen Saturation - - Inhaled Oxygen Concentration - - Weight 74.4 kg (164 lb) 11/24/2022 5:12 PM DYE MAKER Height 180.3 cm (5' 11 ) 11/24/2022 5:12 PM DYE MAKER Body Mass Index 22.87 11/24/2022 5:12 PM DYE MAKER Plan of Treatment Health Maintenance Due Date [...] - Td or Tdap) 03/26/2032 03/26/2022 Insurance [facility] MEDIC[facility] ADVANTAGE Care Teams Wallpaperer Relationship Specialty Start Date End Date Joseph Zhang MD [address] [facility] 120 [place] [address] PCP - General Family Medicine 09/02/22
--- OUTSIDE RECORDS SUMMARY | 2025-03-14 10:27 | XMS_ITS | Clinical Summary ---
Author Organization [facility] Christine jacki Andrew Address [address] [place] [address] Care Team Providers Care Remote Computer Terminal Operator Name Role Phone Joseph Zhang MD Primary Care Provider [phone] Allergies Active Allergy Reactions Criticality Noted Date Comments Penicillins Rash Low 02/25/2023 Medications lisinopriL (PRINIVIL) 20 mg tablet Take 20 mg by mouth daily. 3 Active fluticasone propionate (FLONASE) 50 mcg/spray [place], Suspension nasal inhaler Administer 2 Sprays in [...] Description 02/14/2025 11:00 AM CDT Office Visit [facility] Oncology and Hematology - Siddhartha [address] [place] [address] Neel Baptiste MD Malignant neoplasm of transverse colon [...] Description 08/21/2025 11:00 AM CDT Office Visit [facility] Oncology and Hematology - Siddhartha [address] [facility] [address] [place] [address] Neel Baptiste MD [address] [facility] [address] [place] [address] Health Maintenance Due Date Last Done Comments DTAP/TDAP/TD VACCINES (1 - Tdap) 1964 PNEUMOCOCCAL VACCINE 50+ YEARS (1 of 1 - PCV) 04/08/19 95 ZOSTER VACCINE (1 of 2) 1995 RSV VACCINE (60+ or ) (1 - 1-dose 75+ series) 2020 INFLUENZA VACCINE (#1) 2024 Insurance [facility] [id number] Member Subscriber Plan / Payer (Ef fective 2022-Present) Name:Johny Rinaldi Relation to Subscriber:Self Name:Johny Rinaldi [place] Payer ID:[id number] (NAIC) Type:PPO Address: [place] [id number] Care Teams Remote Computer Terminal Operator Relationship Specialty Start Date End Date Joseph Zhang MD [address] [facility] [address] [place] [address] PCP - General Family Practice 02/25/23
--- OUTSIDE RECORDS SUMMARY | 2025-03-14 10:27 | XMS_ITS | Referral Summary ---
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 Gender Identity Not on file Sexual Orientation Not on file Last Filed Vital Signs Vital Sign Reading Time Taken Comments Blood Pressure - - Pulse - - Temperature - - Respiratory Rate - - Oxygen Saturation - - Inhaled Oxygen Concentration - - Weight 74.4 kg (164 lb) 11/24/2022 5:12 PM MOTOR COACH BUS DRIVER Height 180.3 cm (5' 11 ) 11/24/2022 5:12 PM MOTOR COACH BUS DRIVER Body Mass Index 22.87 11/24/2022 5:12 PM MOTOR COACH BUS DRIVER Plan of Treatment Not on file Insurance [facility] MEDICARE ADVANTAGE [facility] MEDICARE ADVANTAGE Care Teams Advertising Writer Relationship Specialty Start Date End Date Joseph Zhang MD [address] [facility] 120 [place] [address] PCP - General Family Medicine 09/02/22
[2025-03-14 10:38] LABS: Partial Thromboplastin Time 28.5 Seconds (22.3-36.8); Prothrombin Time 13.8 Seconds (11.1-14.7)
== END 2025-03-14 09:44 | disposition home or self-care (01) ==
LOC: ANHSURGERY 09:47
PROVIDERS: Anesthesiology; PCP Family Medicine; Visit Provider Podiatrist Foot & Ankle Surgery
DX: K74.60 Unspecified cirrhosis of liver (principal)
CPT/HCPCS: 36415; 85610; 85730

== ENCOUNTER 2025-03-17 00:41 | Day surgery (SDC) | payer MEDICARE, SELFPAY ==
--- NOTE | 2025-03-10 09:20 | PC.NURSE ---
Report to the Outpatient Waiting Room, entrance under the green pavilion located off [facility], at time __10 AM on date __03/17/25 . Planned Procedure Time: ____1200 NOON____.? Time changes happen often and if your time is changed the preop area will call you the afternoon before. - You and your visitor will be asked to self-screen and do not enter if you have any COVID symptoms. Please call surgeon if you need to reschedule. - A mask is optional within the hospital at this time. Patients may have clear liquids (water, carbonated beverages, clear teas, apple juice) until 3 hours prior to surgery ( 9 AM ) with a maximum of 20 ounces. - No food from midnight until time of surgery and no smoking, or chewing tobacco (or any form of nicotine). No chewing gum, candy or mints. Take only the following medications with a SIP of water on the morning of surgery: NONE DO NOT STOP ANY OF YOUR OTHER PRESCRIPTION MEDICATIONS PRIOR TO SURGERY EXCEPT THE FOLLOWING Hold all vitamins and supplements for 3 days per anesthesiologist. Medications to discontinue per physician NONE Please no make-up, nail colombian, hairspray, perfume, deodorant, or body powder the day of surgery.? No jewelry (including any body piercings) or valuables the day of surgery, leave them at home.? Please take a shower or bath the night before, or the morning of, surgery with an antibacterial soap.? Wear comfortable, loose fitting clothing.? Children are encouraged to wear pajamas. - Jewelry must be removed prior to entering the operating room.? Rings and piercings that are not removed may be cut off. - The hospital will not accept responsibility for valuables.? - Please leave all valuables, including medications, at home the day of surgery. If you are going home after surgery, a licensed warehouse associate driver must drive you home.? - NO public transportation without another adult if you receive anesthesia. - We recommend that an adult stay with you for 24 hours following discharge. - We also recommend that you do not drive, make important decision, drink alcoholic beverages, or take any drugs that were not prescribed by your health care provider for at least 24 hours after your discharge time. Follow any additional instructions given to you from your surgeon. Telephone instructions given to __PATIENT and asked if any additional questions and then verbalized understanding. Patient advised to call surgeon office or pre surgery nurse liaison [phone] if any additional questions.
[2025-03-10 09:41] VITALS: BMI 26.2
--- NOTE | ~2025-03-17 | XR_ITS ---
INTRAOPERATIVE FLUOROSCOPY: CLINICAL HISTORY: 79 years old Male; RIGHT FOOT PROCEDURE COMMENTS: Limited intraoperative fluoroscopy of the right foot was performed. CUMULATIVE DOSE: 0.14 mGy FLUOROSCOPY TIME: 0.03 seconds FINDINGS/IMPRESSION: Please refer to operative note for further details. Reviewed, dictated and finalized at location A.
--- OUTSIDE RECORDS SUMMARY | 2025-03-17 00:45 | XMS_ITS | Referral Summary ---
Author Organization [facility] Address [facility] [place] [address] Care Team Providers Care Careers Adviser Name Role Phone Joseph Zhang MD Primary [...] on file Legal Sex Male 1:00 AM WELL LOGGING OPERATOR MUD ANALYSIS Gender Identity Not on file Sexual Orientation Not on file Last Filed Vital Signs Vital Sign Reading Time Taken Comments Blood Pressure - - Pulse - - Temperature - - Respiratory Rate - - Oxygen Saturation - - Inhaled Oxygen Concentration - - Weight 74.4 kg (164 lb) 11/24/2022 5:12 PM WELL LOGGING OPERATOR MUD ANALYSIS Height 180.3 cm (5' 11 ) 11/24/2022 5:12 PM WELL LOGGING OPERATOR MUD ANALYSIS Body Mass Index 22.87 11/24/2022 5:12 PM WELL LOGGING OPERATOR MUD ANALYSIS Plan of Treatment Not on file Insurance [facility] MEDICARE ADVANTAGE [facility] MEDICARE ADVANTAGE Care Teams Careers Adviser Relationship Specialty Start Date End Date Joseph Zhang MD [address] [facility] 120 [place] [address] PCP - General Family Medicine 09/02/22
--- OUTSIDE RECORDS SUMMARY | 2025-03-17 00:45 | XMS_ITS | Clinical Summary ---
Author Organization [facility] Christine jacki Andrew Address [address] [place] [address] Care Team Providers Care Field Test Engineer Name Role Phone Joseph Zhang MD Primary Care Provider [phone] Allergies Active Allergy Reactions Criticality Noted Date Comments Penicillins Rash Low 02/25/2023 Medications lisinopriL (PRINIVIL) 20 mg tablet Take 20 mg by mouth daily. 3 Active fluticasone propionate (FLONASE) 50 mcg/spray [place], Suspension nasal inhaler Administer 2 Sprays in [...] Description 02/14/2025 11:00 AM CDT Office Visit [facility] Oncology and Hematology - Siddhartha [address] [place] [address] Neel Baptiste MD Malignant neoplasm [...] Description 08/21/2025 11:00 AM CDT Office Visit [facility] Oncology and Hematology - Siddhartha [address] [facility] [address] [place] [address] Neel Baptiste MD [address] [facility] [address] [place] [address] Health Maintenance Due Date Last Done Comments DTAP/TDAP/TD VACCINES (1 - Tdap) 1964 PNEUMOCOCCAL VACCINE 50+ YEARS (1 of 1 - PCV) 04/08/19 95 ZOSTER VACCINE (1 of 2) 1995 RSV VACCINE (60+ or ) (1 - 1-dose 75+ series) 2020 INFLUENZA VACCINE (#1) 2024 Insurance [facility] [id number] Member Subscriber Plan / Payer (Ef fective 2022-Present) Name:Johny Rinaldi Relation to Subscriber:Self Name:Johny Rinaldi Garfield Payer ID:[id number] (NAIC) Type:PPO Address: [place] [phone] Care Teams Field Test Engineer Relationship Specialty Start Date End Date Joseph Zhang MD [address] [facility] [address] [place] [address] PCP - General Family Practice 02/25/23
--- OUTSIDE RECORDS SUMMARY | 2025-03-17 00:45 | XMS_ITS | Clinical Summary ---
Author Organization [facility] Address [address] [place] [address] Care Team Providers Care In School Suspension Coordinator Name Role Phone Joseph Zhang MD Primary [...] on file Legal Sex Male 1:00 AM JUNIOR PHP DEVELOPER Gender Identity Not on file Sexual Orientation Not on file Last Filed Vital Signs Vital Sign Reading Time Taken Comments Blood Pressure - - Pulse - - Temperature - - Respiratory Rate - - Oxygen Saturation - - Inhaled Oxygen Concentration - - Weight 74.4 kg (164 lb) 11/24/2022 5:12 PM JUNIOR PHP DEVELOPER Height 180.3 cm (5' 11 ) 11/24/2022 5:12 PM JUNIOR PHP DEVELOPER Body Mass Index 22.87 11/24/2022 5:12 PM JUNIOR PHP DEVELOPER Plan of Treatment Health Maintenance Due Date [...] Tdap) 03/26/2032 03/26/2022 Insurance [facility] Address: [id number] [place] [address] [facility] MEDICARE ADVANTAGE [facility] Address[address] [address] [place] [address] Care Teams In School Suspension Coordinator Relationship Specialty Start Date End Date Joseph Zhang MD [address] [place] [address] PCP - General Family Medicine 09/02/22
--- NOTE | 2025-03-17 07:14 | WPDHPUPDATE1 ---
History and Physical Update Update Date/Time: 03/17/25 07:14 History and Physical has been reviewed, including an updated exam of the patient. There are NO changes in the patient's condition. Risks, benefits, and alternatives have been discussed and questions answered. Patient agrees to proceed with procedure.
[2025-03-17] MEDS: LIDOCAINE 2% LOCAL INJ 20 ML VIAL 10 ML INFILTRATE (10:23)
[2025-03-17 12:00] VITALS: BP 107/70; PULSE 60; RESP 14; TEMP 36.6; O2SAT 96
[2025-03-17] MEDS: LACTATED RINGERS 1,000 ML 30 ML IV CONT (12:00)
--- NOTE | 2025-03-17 12:50 | WPDANESEPPF ---
Anes - Initial Pre Proc Eval Procedure: Operation Date: 03/17/25 12:00 Proposed Procedures p Cheilectomy First Metatarsal Phalangeal Joint Right Foot - Kerwin Martinez Jr., DPM Date/Time: 03/17/25 12:50 Surgeon: Kerwin Martinez Jr., DPM Pre Op Diagnosis: Bunion Rt Foot Patient Data Age: 79 Gender: M Height: 1.8 m Weight: 85.25 kg Allergies Allergy/AdvReac Type Severity Reaction Status Date / Time Penicillins Allergy Mild Unknown- Verified 03/10/25 09:19 A CHILD mushroom Allergy Unknown HIVES Verified 03/10/25 09:19 Home Medications ?Medication ?Instructions ?Recorded ?Confirmed ?Type ondansetron HCl 8 mg tablet 4 mg PO Q8H PRN Nausea 03/16/23 03/10/25 History psyllium husk 3.4 gram/5.4 gram 1 tsp PO DAILY 05/27/23 03/10/25 History oral powder (Metamucil) lisinopril 20 mg tablet 20 mg PO DAILY #90 tabs 10/12/24 03/10/25 Rx Patient hx anesthesia problems: none Family hx anesthesia problems: none Results Review: All pre-operative results and documents have been reviewed as part of the pre-operative evaluation. [facility] Past Medical History Medical History Polyp of sigmoid colon Abscess of sigmoid colon due to diverticulitis Malignant neoplasm of prostate Hypertension Rheumatoid arthritis Surgical History Surgical History History of colon resection Hand access laparoscopic sigmoidectomy 01/14/2023 for diverticulitis and polyp Family History Family History Father Lung cancer Mother Heart disease Hypertension Social History Social History Social History: Surrogate medical decision maker: Fabi Rinaldi, spouse. Code status: Full code. Smoking packs per day: 0 Smoking cigarettes per day: 0.0 Years smoked: 6 Smoking pack-years: 0.00 Smoking status: Former smoker Tobacco type: cigarettes Second hand tobacco smoke exposure: No Smoking end date: 11/09/70 Alcohol intake: former Drinks per week: 21 Alcohol use details: QUIT 2021 Substance use: never Substance use type: does not use Lack of Transportation: No Lack of Food: Never True Current Housing: I Have Housing Concerned About Future Housing: No Difficulty Paying Gas/Electric Bills: No Difficulty Paying for Meds: No Currently Unemployed: No Education: Associate Degree Difficulty w/ Childcare or Family Care: No Living arrangements: with family Additional living arrangements comments: The patient lives with his in [place]. Occupation/Education: retired Additional occupation/education comments: Retired. Spiritual care concerns: No Anes - Eval Final PreProcedure Day of Procedure 03/17/25 12:50 Lungs: normal air movement Airway: Mallampati scale class II and special considerations (Several caps noted, none loose. ) Neurological: alert and oriented Last oral intake: >/= 8 hours ASA classification: III Emergent: no Anesthetic plan: proceed Anesthesia type and monitoring: general GIVS and standard monitoring Results Review: All pre-operative results and documents have been reviewed as part of the pre-operative evaluation. HTN, ex smoker quit , hx of colon ca, hx of cirrhosis and work up in progress. Informed Consent: The patient's anesthetic plan and its attendant risks and benefits were discussed with the patient/family/POA. Questions were solicited and answers provided to the satisfaction of the patient/family/POA.
[2025-03-17] MEDS: ceFAZolin 2 GM/D5W 50 ML 2 GM/50 ML BAG IVPB (13:04)
--- NOTE | 2025-03-17 13:49 | W.PM.PROC2 ---
Procedure Note - Detailed Date of Procedure 03/17/25 Pre-op Diagnosis Bunion Rt Foot Post-op Diagnosis Same Procedure Performed Cheilectomy 1st metatarsal phalangeal joint left foot Surgeon Kerwin Martinez Jr., DPM Anesthesia MAC and Local Indications Painful bunion left foot Findings Severe large osteophyte to the 1st metatarsal phalangeal joint left foot Description of Procedure PROCEDURE IN DETAIL: Under mild sedation, the patient was brought into the operating room, placed on the operating table in supine position. A pneumatic ankle tourniquet was placed about the patient's right ankle. Following general LMA, a local anesthetic block was obtained about the foot and ankle utilizing 20 cc of a 1:1 of 2% Lidocaine plain and 0.5% Marcaine plain. The foot was then scrubbed, prepped, and draped in the usual aseptic manner. An Esmarch bandage was then used to exsanguinate the patient's foot and the pneumatic ankle tourniquet was then inflated. Surgery began in the following manner: Attention was directed to the dorsal aspect of the 1st metatarsophalangeal joint where there was a large osteophyte noted along the dorsomedial aspect of the joint. The incision was made starting along the central shaft of the 1st metatarsal and extending just proximal to the interphalangeal joint of the hallux. The incision was continued deep down through the subcutaneous tissues using sharp and blunt dissection. All bleeders were cauterized as necessary. At this point, the dissection was continued down to the level of the periosteum and capsular structures overlying the 1st metatarsophalangeal joint. A full length periosteal and capsular incision was made just medial to the extensor hallucis longus tendon. The periosteum and capsular structures were freed from the base of the proximal phalanx as well as the distal 1st metatarsal. At this point, the 1st metatarsophalangeal joint was identified. There was severe loss of articular cartilage to the dorsal aspect of head of the 1st metatarsal . There was significant broadening and hypertrophy of the 1st metatarsophalangeal joint with a very large dorsal spur. Utilizing a sagittal bone saw, the hypertrophied 1st metatarsal was resected dorsally, medially, and laterally. A Rongeur was used to make sure that there were no rough edges and also to further debride the hypertrophic 1st metatarsal and base of the proximal phalanx. Approximately one third of the dorsal first metatarsal was resected. I performed a lateral release to decrease the lateral pulling force of the adductor hallucis muscle and tendon unit as well as the medial head of the flexor digitorum brevis tendon. Moreover, the wound site was then flushed with copious amounts of sterile saline. Fluoroscopy was adequate resection of the osseous proliferation to the first metatarsal phalangeal joint. Next, the periosteum and capsular structures were reapproximated with 3-0 Vicryl. Next, the subcutaneous structures were reapproximated with 4-0 Vicryl. Next, the skin was reapproximated and coapted utilizing 4-0 Monocryl in running subcuticular suture fashion technique. Upon completion of the procedure, the incision was dressed with Steri-Strips, Adaptic, 4x4s, Kerlix, and Coban. The pneumatic ankle tourniquet was then deflated and a prompt hyperemic response was noted to all digits of the foot. A surgical shoe was then applied to the affected lower extremity. It is important to note that Dr. Martinez was present throughout the procedure. The patient did very well with the procedure and the anesthesia. He was transferred to the recovery room with vital signs stable and vascular status intact to all toes of the foot. Following a period of postoperative monitoring, the patient will be discharged home on the following written and oral postoperative instructions: 1. Keep the dressing clean, dry, and intact. 2. The patient to be protected weight bearing with an orthopedic pneumatic boot. 3. The patient should ice and elevate the affected foot when at rest. 4. The patient should contact Dr. Martinez for all postop care and if any problems should arise. She will follow up in one week for her post op visit. 5. Prescriptions were written for Percocet 5/325, dispensed 10 to be taken 1 p.o. q.4-6 hours as needed for severe pain. Furthermore, the patient should take Aspirin 325 once daily for two weeks to prevent DVT. Implants None Estimated Blood Loss 1 Drains No Packing No Pathology None sent Complications No immediate complications Condition Stable Disposition Same day
[2025-03-17 13:58] VITALS: BP 110/74; PULSE 45; RESP 14; O2SAT 100
[2025-03-17 14:20] VITALS: BP 114/73; PULSE 43; RESP 14; O2SAT 98
[2025-03-17 14:50] VITALS: BP 129/75; PULSE 47; RESP 14
== END 2025-03-17 15:09 | disposition home or self-care (01) ==
PROVIDERS: PCP Family Medicine; Visit Provider Podiatrist Foot & Ankle Surgery
PROC: (CPT 28289; principal; 2025-03-17 12:00)
DX: M21.611 Bunion of right foot (principal); M20.11 Hallux valgus (acquired), right foot; M25.774 Osteophyte, right foot; M19.071 Primary osteoarthritis, right ankle and foot; I10 Essential (primary) hypertension; K74.60 Unspecified cirrhosis of liver; R25.2 Cramp and spasm; M06.9 Rheumatoid arthritis, unspecified; Z98.890 Other specified postprocedural states; Z90.49 Acquired absence of other specified parts of digestive tract; Z87.891 Personal history of nicotine dependence; Z86.0100 Personal history of colon polyps, unspecified; Z85.46 Personal history of malignant neoplasm of prostate; Z85.038 Personal history of other malignant neoplasm of large intestine; Z80.1 Family history of malignant neoplasm of trachea, bronchus and lung; Z82.49 Family history of ischemic heart disease and other diseases of the circulatory system
CPT/HCPCS: 28289; 99199; J0690; J1100; J2003; J2405; J2704; J3010; J7120

== ENCOUNTER 2025-06-28 02:38 | Day surgery (SDC) | payer MEDICARE, SELFPAY ==
[2025-06-13 13:16] VITALS: BMI 25.2
--- OUTSIDE RECORDS SUMMARY | 2025-06-28 02:41 | XMS_ITS | Clinical Summary ---
Author Organization [facility] Address [address] [place] [address] Care Team Providers Care C D Reactor Operator Name Role Phone Joseph Zhang MD [...] on file Legal Sex Male 1:00 AM INSTRUMENT PERSON Gender Identity Not on file Sexual Orientation Not on file Last Filed Vital Signs Vital Sign Reading Time Taken Comments Blood Pressure - - Pulse - - Temperature - - Respiratory Rate - - Oxygen Saturation - - Inhaled Oxygen Concentration - - Weight 74.4 kg (164 lb) 11/24/2022 5:12 PM INSTRUMENT PERSON Height 180.3 cm (5' 11) 11/24/2022 5:12 PM INSTRUMENT PERSON Body Mass Index 22.87 11/24/2022 5:12 PM INSTRUMENT PERSON Plan of Treatment Health Maintenance Due Date Last Done Comments Depression Screening 1945 Fall Risk Assessment 1945 Hepatitis B Screening 1963 Pneumococcal vaccine 65+ (1 of 1 - PCV) 1995 Zoster Vaccine (1 of 2) 1995 Well Visit 65+ 2010 Covid-19 Vaccine (6 - 2024-2 5 season) 2024 08/25/2022, 03/14/2022, 10/07/2021, Additional history exists Influenza Vaccine (#1) 2025 , 08/15/2021, 08/14/2020, Additional history exists DTaP/Tdap/Td Vaccine (2 - Td or Tdap) 03/26/2032 03/26/2022 Insurance [facility] MED[facility] ADVANTAGE [facility] Address: [address] [address] [facility] ADVANTAGE [facility] Address: [id number] [place] [address] Care Teams C D Reactor Operator Relationship Specialty Start Date End Date Joseph Zhang MD [address] [facility] [address] [facility] [address] [place] [address] PCP - General Family Medicine 09/02/22
--- OUTSIDE RECORDS SUMMARY | 2025-06-28 02:41 | XMS_ITS | Clinical Summary ---
Author Organization [facility] Christine Andrew Address [address] [place] [address] Care Team Providers Care Tree Deadener Name Role Phone Joseph Zhang MD Primary Care Provider [phone] Allergies Active Allergy Reactions Criticality Noted Date Comments Penicillins Rash Low 02/25/2023 Medications lisinopriL (PRINIVIL) 20 mg tablet Take 20 mg by mouth daily. 3 Active fluticasone propionate (FLONASE) 50 mcg/spray [place], Suspension nasal inhaler Administer 2 Sprays in [...] Encounters Date Type Department Care Team Description 06/14/2025 External Device Data STL ABSTRACTION Provider, Abstract 05/25/2025 External Device Data STL ABSTRACTION Provider, Abstract 05/24/2025 External Device Data STL ABSTRACTION Provider, Abstract 05/24/2025 External Device Data STL ABSTRACTION Provider, Abstract 04/26/2025 External Device Data STL ABSTRACTION Provider, Abstract 04/04/2025 External Device Data STL ABSTRACTION Provider, Abstract 04/04/2025 External Device Data STL ABSTRACTION Provider, Abstract 03/30/2025 External Device Data STL ABSTRACTION Provider, Abstract 03/29/2025 External Device Data STL ABSTRACTION Provider, Abstract [...] 10:44 AM CDT Height 180.3 cm (5' 11) 02/25/2023 1:28 PM CDT Body Mass Index 26.19 02/25/2023 1:28 PM CDT Plan of Treatment Upcoming Encounters Date Type Department Care Team (Late st Contact Info) Description 08/21/2025 11:00 AM CDT Office Visit [facility] Oncology and Hematology - [place] [address] [facility] [address] [place] [address] Neel Baptiste MD [address] [facility] [address] [place] [address] Health Maintenance Due Date Last Done Comments DTAP/TDAP/TD VACCINES (1 - Tdap) 1964 PNEUMOCOCCAL VACCINE 50+ YEARS (1 of 1 - PCV) 04/08/19 95 ZOSTER VACCINE (1 of 2) 1995 RSV VACCINE (60+ or ) (1 - 1-dose 75+ series) 2020 INFLUENZA VACCINE (#1) 2025 Insurance [facility] [id number] Care Teams Tree Deadener Relationship Specialty Start Date End Date Joseph Zhang MD [address] [facility] [address] [place] [address] PCP - General Family Practice 02/25/23
[2025-06-28 06:19] VITALS: BMI 24.9
[2025-06-28 06:22] VITALS: BP 120/74; PULSE 53; RESP 18; TEMP 36.4; O2SAT 97
[2025-06-28] MEDS: LACTATED RINGERS 1,000 ML 150 ML IV CONT (06:23)
--- NOTE | 2025-06-28 07:08 | WPDANESEPPF ---
Anes - Initial Pre Proc Eval Procedure: Operation Date: 06/28/25 07:30 Proposed Procedures p Esophagogastroduodenoscopy - Bo Calhoun MD Date/Time: 06/28/25 07:08 Surgeon: Bo Calhoun MD Pre Op Diagnosis: Unspecified cirrhosis of liver Patient Data Age: 80 Gender: M Height: 1.8 m Weight: 81.1 kg Last Vital Signs Temp 36.4 C 06/28/25 06:22 Pulse 53 L 06/28/25 06:22 Resp 18 06/28/25 06:22 BP 120/74 06/28/25 06:22 Pulse Ox 97 06/28/25 06:22 O2 Del Method Room Air 06/28/25 06:22 Allergies Allergy/AdvReac Type Severity Reaction Status Date / Time Penicillins Allergy Mild Unknown- Verified 06/28/25 06:16 A CHILD mushroom Allergy Unknown HIVES Verified 06/28/25 06:16 Home Medications ?Medication ?Instructions ?Recorded ?Confirmed ?Type ondansetron HCl 8 mg tablet 4 mg PO Q8H PRN Nausea 03/16/23 06/28/25 History psyllium husk 3.4 gram/5.4 gram 1 tsp PO DAILY 05/27/23 06/28/25 History oral powder (Metamucil) lisinopril 20 mg tablet 20 mg PO DAILY #90 tabs 10/12/24 06/28/25 Rx omeprazole 20 mg capsule,delayed 20 mg PO DAILY 06/13/25 06/28/25 History release Patient hx anesthesia problems: none Family hx anesthesia problems: none Results Review: All pre-operative results and documents have been reviewed as part of the pre-operative evaluation. [facility] Past Medical History Medical History Polyp of sigmoid colon Abscess of sigmoid colon due to diverticulitis Malignant neoplasm of prostate Hypertension Rheumatoid arthritis Surgical History Surgical History History of bunionectomy right foot History of colon resection Hand access laparoscopic sigmoidectomy 01/14/2023 for diverticulitis and polyp Family History Family History Father Lung cancer Mother Heart disease Hypertension Social History Social History Social History: Surrogate medical decision maker: Fabi Rinaldi, spouse. Code status: Full code. Smoking packs per day: 0 Smoking cigarettes per day: 0.0 Years smoked: 6 Smoking pack-years: 0.00 Smoking status: Former smoker Tobacco type: cigarettes Second hand tobacco smoke exposure: No Smoking end date: 11/09/70 Alcohol intake: former Drinks per week: 21 Alcohol use details: QUIT 2021 Substance use: never Substance use type: does not use Lack of Transportation: No Lack of Food: Never True Current Housing: I Have Housing Concerned About Future Housing: No Difficulty Paying Gas/Electric Bills: No Difficulty Paying for Meds: No Currently Unemployed: No Education: Associate Degree Difficulty w/ Childcare or Family Care: No Living arrangements: with family Additional living arrangements comments: The patient lives with his in [place]. Occupation/Education: retired Additional occupation/education comments: Retired. Spiritual care concerns: No Anes - Eval Final PreProcedure Day of Procedure 06/28/25 07:08 Patient weight: normal Heart: regular rate and rhythm Lungs: clear to auscultation Airway: Mallampati scale class II Neurological: alert and oriented Last oral intake: >/= 8 hours ASA classification: III Emergent: no Anesthetic plan: proceed Anesthesia type and monitoring: general GIVS and standard monitoring Results Review: All pre-operative results and documents have been reviewed as part of the pre-operative evaluation. Informed Consent: The patient's anesthetic plan and its attendant risks and benefits were discussed with the patient/family/POA. Questions were solicited and answers provided to the satisfaction of the patient/family/POA.
--- NOTE | 2025-06-28 07:28 | PM.HPGS ---
History of Present Illness History of Present Illness Consent: Risks, benefits, and alternatives have been discussed and questions answered. Patient agrees to proceed with procedure. Chief complaint: Unspecified cirrhosis of liver Narrative: Johny Rinaldi is a 80 year old male with gerd on ppi prn, also cirrhosis Review of Systems Review of Systems: All systems reviewed & are unremarkable except as noted in HPI and below PMFSH Past Medical History Medical History Polyp of sigmoid colon Abscess of sigmoid colon due to diverticulitis Malignant neoplasm of prostate Hypertension Rheumatoid arthritis Surgical History Surgical History History of bunionectomy right foot History of colon resection Hand access laparoscopic sigmoidectomy 01/14/2023 for diverticulitis and polyp Family History Family History Father Lung cancer Mother Heart disease Hypertension Social History Social History Social History: Surrogate medical decision maker: Fabi Rinaldi, spouse. Code status: Full code. Smoking packs per day: 0 Smoking cigarettes per day: 0.0 Years smoked: 6 Smoking pack-years: 0.00 Smoking status: Former smoker Tobacco type: cigarettes Second hand tobacco smoke exposure: No Smoking end date: 11/09/70 Alcohol intake: former Drinks per week: 21 Alcohol use details: QUIT 2021 Substance use: never Substance use type: does not use Lack of Transportation: No Lack of Food: Never True Current Housing: I Have Housing Concerned About Future Housing: No Difficulty Paying Gas/Electric Bills: No Difficulty Paying for Meds: No Currently Unemployed: No Education: Associate Degree Difficulty w/ Childcare or Family Care: No Living arrangements: with family Additional living arrangements comments: The patient lives with his in [place]. Occupation/Education: retired Additional occupation/education comments: Retired. Spiritual care concerns: No Meds Home Medications and Allergies Home Medications ?Medication ?Instructions ?Recorded ?Confirmed ?Type ondansetron HCl 8 mg tablet 4 mg PO Q8H PRN Nausea 03/16/23 06/28/25 History psyllium husk 3.4 gram/5.4 gram 1 tsp PO DAILY 05/27/23 06/28/25 History oral powder (Metamucil) lisinopril 20 mg tablet 20 mg PO DAILY #90 tabs 10/12/24 06/28/25 Rx omeprazole 20 mg capsule,delayed 20 mg PO DAILY 06/13/25 06/28/25 History release Allergies Allergy/AdvReac Type Severity Reaction Status Date / Time Penicillins Allergy Mild Unknown- Verified 06/28/25 06:16 A CHILD mushroom Allergy Unknown HIVES Verified 06/28/25 06:16 Vital Signs Vital Signs - 24 hr 06/28/25 06:22 Temperature 97.6 F Pulse Rate 53 L Respiratory Rate 18 Blood Pressure 120/74 Pulse Oximetry 97 Oxygen Delivery Room Air Exam Const: General: comfortable and no acute distress HENMT: Face/Nose/Sinus: Normal nares present Eyes: General: appearance normal, both eyes and all related structures Neck: Neck: no JVD Resp: Auscultation: clear to auscultation bilaterally Cardio: Rate: regular rate Rhythm: regular rhythm GI: Inspection: non-distended GI Palp: Yes Soft to palpation Skin: General skin exam: normal color Neuro: Speech: normal speech Extrem: General: normal to inspection Psych: Mental Status: mental status grossly normal Assessment and Plan Assessment and plan (1) Cirrhosis: Qualifiers: Hepatic cirrhosis type: unspecified hepatic cirrhosis Ascites presence: without ascites Qualified Code(s): K74.60 - Unspecified cirrhosis of liver Code(s): K74.60 - Unspecified cirrhosis of liver Status: Acute Assessment and Plan: egd
[2025-06-28] MEDS: BENZOCAINE (*SP) 60 ML SPRAY CAN (HURRICAINE) 1 SPRAY MUCOUS MEM (07:32)
--- NOTE | 2025-06-28 07:36 | S_PTH ---
PATIENT: Johny Rinaldi LOC: [facility] [place]#:[id number] AGE/SX: 80/M ROOM: RE06/28/[address]: Bo Calhoun MD : 1945 BED: DIS: 06/28/2025 SPEC #: [id number] RECD: 06/28/25 10:03 STATUS: ALMAZ WIGGINS #: [id number] KIRSTEN: 06/28/25 07:[address]: Bo Calhoun DEPT: [facility] Surgical RECD BY: Kat Fall ENTERED: 06/28/25 10:03 SP TYPE: Surgical OTHR DR: Joseph Zhang MD Tissues: A - Gastric Biopsy Procedures: Hematoxylin and Eosin Stain Gross and Microscopic Level 4
[2025-06-28 07:37] VITALS: BP 100/63; PULSE 50; RESP 15; O2SAT 95
[2025-06-28 07:47] VITALS: BP 95/64; PULSE 47; RESP 14; O2SAT 96
[2025-06-28 07:57] VITALS: BP 110/71; PULSE 44; RESP 23; O2SAT 99
== END 2025-06-28 08:06 | disposition home or self-care (01) ==
PROVIDERS: PCP Family Medicine; Referring Provider Nurse Practitioner; Visit Provider Internal Medicine Gastroenterology
PROC: 0DJ08ZZ Inspection of Upper Intestinal Tract, Via Natural or Artificial Opening Endoscopic (ICD-10-PCS; CPT 43239; principal; 2025-06-28 07:30)
DX: K74.60 Unspecified cirrhosis of liver (principal); K21.00 Gastro-esophageal reflux disease with esophagitis, without bleeding; K44.9 Diaphragmatic hernia without obstruction or gangrene; I10 Essential (primary) hypertension; M06.9 Rheumatoid arthritis, unspecified; Z98.890 Other specified postprocedural states; Z90.49 Acquired absence of other specified parts of digestive tract; Z86.0100 Personal history of colon polyps, unspecified; Z87.891 Personal history of nicotine dependence; Z85.46 Personal history of malignant neoplasm of prostate; Z87.19 Personal history of other diseases of the digestive system; Z80.1 Family history of malignant neoplasm of trachea, bronchus and lung; Z82.49 Family history of ischemic heart disease and other diseases of the circulatory system
CPT/HCPCS: 43239; 88305; J2003; J2704; J7120

== ENCOUNTER 2025-08-08 11:49 | Outpatient (CLI) | payer MEDICARE, SELFPAY ==
--- OUTSIDE RECORDS SUMMARY | 2025-08-08 12:01 | XMS_ITS | Clinical Summary ---
Author Organization [facility] Address [address] [place] [address] Care Team Providers Care Glove Brusher Name Role Phone Joseph Zhang MD Primary [...] on file Legal Sex Male 1:00 AM DATA REVIEW SPECIALIST Gender Identity Not on file Sexual Orientation Not on file Last Filed Vital Signs Vital Sign Reading Time Taken Comments Blood Pressure - - Pulse - - Temperature - - Respiratory Rate - - Oxygen Saturation - - Inhaled Oxygen Concentration - - Weight 74.4 kg (164 lb) 11/24/2022 5:12 PM DATA REVIEW SPECIALIST Height 180.3 cm (5' 11) 11/24/2022 5:12 PM DATA REVIEW SPECIALIST Body Mass Index 22.87 11/24/2022 5:12 PM DATA REVIEW SPECIALIST Plan of Treatment Health Maintenance Due Date Last Done Comments Depression Screening 1945 Fall Risk Assessment 1945 Hepatitis B Screening 1963 Pneumococcal vaccine 65+ (1 of 1 - PCV) 1995 Zoster Vaccine (1 of 2) 1995 Well Visit 65+ 2010 Covid-19 Vaccine (6 - 2025-2 6 season) 2025 08/25/2022, 03/14/2022, 10/07/2021, Additional history exists Influenza Vaccine (#1) 2025 , 08/15/2021, 08/14/2020, Additional history exists DTaP/Tdap/Td Vaccine (2 - Td or Tdap) 03/26/2032 03/26/[address] [facility] MEDICARE ADVANTAGE [facility] MEDICARE ADVANTAGE Care Teams Glove Brusher Relationship Specialty Start Date End Date Joseph Zhang MD [address] [facility] [address] [facility] [address] [place] [address] PCP - General Family Medicine 09/02/22
--- OUTSIDE RECORDS SUMMARY | 2025-08-08 12:01 | XMS_ITS | Clinical Summary ---
Author Organization [facility] Christine Andrew Address [address] [place] [address] Care Team Providers Care Policy Advisor Name Role Phone Joseph Zhang MD Primary Care Provider [phone] Allergies Active Allergy Reactions Criticality Noted Date Comments Penicillins Rash Low 02/25/2023 Medications lisinopriL (PRINIVIL) 20 mg tablet Take 20 mg by mouth daily. 3 Active fluticasone propionate (FLONASE) 50 mcg/spray [place], Suspension nasal inhaler Administer 2 Sprays in [...] Encounters Date Type Department Care Team Description 07/25/2025 External Device Data STL ABSTRACTION Provider, Abstract 07/25/2025 External Device Data STL ABSTRACTION Provider, Abstract 06/28/2025 External Device Data STL ABSTRACTION Provider, Abstract 06/27/2025 External Device Data STL ABSTRACTION Provider, Abstract 06/14/2025 External Device Data STL ABSTRACTION Provider, [...] Description 08/21/2025 11:00 AM CDT Office Visit [facility] Oncology and Hematology - [place] [address] [facility] [address] [place] [address] Neel Baptiste MD [address] [facility] [address] [place] [address] Health Maintenance Due Date Last Done Comments DTAP/TDAP/TD VACCINES (1 - Tdap) 1964 PNEUMOCOCCAL VACCINE 50+ YEARS (1 of 1 - PCV) 04/08/19 95 ZOSTER VACCINE (1 of 2) 1995 RSV VACCINE (60+ or ) (1 - 1-dose 75+ series) 2020 [place] Prev entative Visit/Annual Wellness Visit 11/09/2024 INFLUENZA VACCINE (#1) 2025 Insurance [facility] [id number] Care Teams Policy Advisor Relationship Specialty Start Date End Date Joseph Zhang MD [address] [facility] [address] [place] [address] PCP - General Family Practice 02/25/23
[2025-08-08 12:08] LABS: Hematocrit 45.7 % (42.0-52.0); Hemoglobin 15.4 g/dL (14.0-18.0); Immature Granulocyte Percent A 0.2 % (0-0.5); Lymphocytes Absolute Auto 1.65 K/mm3 (0.9-3.2); Mean Corpuscular HGB Conc 33.7 g/dl (32-36); Mean Corpuscular Hemoglobin 31.4 pg (26-34); Mean Corpuscular Volume 93.3 fl (80-100); Nucleated Red Blood Cells Absolute Auto 0.000 K/mm3 (0.0-0.012); Nucleated Red Blood Cells Perc 0.0 % (0.0-0.2); Platelet Count Result 153 k/mm3 (150-375); Red Blood Count 4.90 M/mm3 (4.6-6.20); White Blood Count 6.4 K/mm3 (4.5-10.0)
[2025-08-08 16:38] LABS: Alanine Aminotransferase 25 U/L (6-50); Albumin Level 4.2 g/dL (3.5-5.1); Alkaline Phosphatase 76 U/L (38-126); Anion Gap 7 mmol/L (4-12); Aspartate Amino Transferase 56 U/L (17-59); Bilirubin,Total 0.7 mg/dL (0.2-1.3); Blood Urea Nitrogen 11 mg/dL (9-20); Calcium 9.2 mg/dL (8.4-10.2); Carbon Dioxide 26 mmol/L (22-30); Chloride 105 mmol/L (98-107); Estimated Glomerular Filt Rate > 60; Glucose 79 mg/dL (65-110); Potassium 4.3 mmol/L (3.4-5.0); Sodium 138 mmol/L (137-145); Total Protein 7.4 g/dL (6.3-8.2)
[2025-08-08 17:14] LABS: Carcinoembryonic Antigen 1.3 ng/mL (0.0-3.0)
== END 2025-08-08 11:50 | disposition home or self-care (01) ==
LOC: ANHLAB 11:52
PROVIDERS: PCP Family Medicine; Visit Provider Internal Medicine Hematology & Oncology
DX: C18.4 Malignant neoplasm of transverse colon (principal)
CPT/HCPCS: 36415; 80053; 82378; 85025

== ENCOUNTER 2025-09-14 08:30 | Outpatient (CLI) | payer MEDICARE, SELFPAY ==
--- NOTE | ~2025-09-14 | US_ITS ---
ULTRASOUND ABDOMEN LIMITED (RIGHT UPPER QUADRANT) Clinical History: K74.60 - Unspecified cirrhosis of liver Comparison: Abdominal ultrasound 03/02/2025 Technique: Right upper quadrant sonography Findings: Liver: Nodular contour. Normal size. Echogenic. No intrahepatic biliary ductal dilatation. Normal hepatopedal flow main portal vein. No mass identified. Common Duct: Normal caliber. 5 mm. Gallbladder: No stones. No wall thickening. No pericholecystic fluid. Pancreas: Unremarkable. IMPRESSION: 1. Cirrhosis. No discrete mass identified. 2. No acute abnormality. Reviewed, dictated and finalized at location R. EXTINGUISHER TECHNICIAN
[2025-09-14 10:24] LABS: Hematocrit 47.4 % (42.0-52.0); Hemoglobin 15.8 g/dL (14.0-18.0); Mean Corpuscular HGB Conc 33.3 g/dl (32-36); Mean Corpuscular Hemoglobin 31.4 pg (26-34); Mean Corpuscular Volume 94.2 fl (80-100); Platelet Count Result 181 k/mm3 (150-375); Red Blood Count 5.03 M/mm3 (4.6-6.20); White Blood Count 5.1 K/mm3 (4.5-10.0)
[2025-09-14 10:47] LABS: Alanine Aminotransferase 20 U/L (6-50); Albumin Level 4.1 g/dL (3.5-5.1); Alkaline Phosphatase 61 U/L (38-126); Anion Gap 5 mmol/L (4-12); Aspartate Amino Transferase 32 U/L (17-59); Bilirubin,Total 0.5 mg/dL (0.2-1.3); Blood Urea Nitrogen 15 mg/dL (9-20); Calcium 8.9 mg/dL (8.4-10.2); Carbon Dioxide 27 mmol/L (22-30); Chloride 105 mmol/L (98-107); Estimated Glomerular Filt Rate > 60; Glucose 86 mg/dL (65-110); Sodium 137 mmol/L (137-145); Total Protein 7.3 g/dL (6.3-8.2)
[2025-09-14 10:54] LABS: Potassium 4.9 mmol/L (3.4-5.0)
--- OUTSIDE RECORDS SUMMARY | 2025-09-14 17:20 | XMS_ITS | Clinical Summary ---
Author Organization [facility] Christine Andrew Address [address] [place] [address] Care Team Providers Care Regional Office Coordinator Name Role Phone Joseph Zhang MD Primary Care Provider [phone] Allergies Active Allergy Reactions Criticality Noted Date Comments Penicillins Rash Low 02/25/2023 Medications lisinopriL (PRINIVIL) 20 mg tablet Take 20 mg by mouth daily. 3 Active fluticasone propionate (FLONASE) 50 mcg/spray [place], Suspension nasal inhaler Administer 2 Sprays in each nostril daily. Active meclizine (ANTIVERT) 25 mg tablet Take 25 mg by mouth 3 times daily as needed for Dizziness. Active ondansetron (Zofran) 8 mg Tablet Take 1 Tablet (8 mg) by mouth every 8 hours as needed for Nausea/Emesis. 30 Tablet 1 3 Active omeprazole (PriLOSEC) 40 mg Capsule, Delayed Release(E.C.) Take 40 mg by mouth daily. 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) 08/10/2025 Orders Only [facility] Oncology and Hematology [facility] [address] [place] [address] Neel Baptiste MD 07/25/2025 External Device Data STL ABSTRACTION Provider, [...] Sign Reading Time Taken Comments Blood Pressure 130/80 08/21/2025 10:57 AM CDT Pulse 59 08/21/2025 10:57 AM CDT Temperature 36.1 C (96.9 F) 08/21/2025 10:57 AM CDT Respiratory Rate 16 08/21/2025 10:57 AM CDT Oxygen Saturation 98% 08/21/2025 10:57 AM CDT Inhaled Oxygen Concentration - - Weight 81.8 kg (180 lb 6.4 oz) 08/21/2025 10:57 AM CDT Height 180.3 cm (5' 11) 02/25/2023 1:28 PM CDT Body Mass Index 25.16 02/25/2023 1:28 PM CDT Plan of Treatment Upcoming Encounters Date Type Department Care Team (Late st Contact Info) Description 02/19/2026 11:00 AM CDT Office Visit [facility] Oncology and Hematology - [place] [address] [facility] [address] [place] [address] Neel Baptiste MD [address] [facility] [address] [place] [address] Health Maintenance Due Date Last Done Comments DTAP/TDAP/TD VACCINES (1 - Tdap) 1964 PNEUMOCOCCAL VACCINE 50+ YEARS (1 of 1 - PCV) 04/08/19 95 ZOSTER VACCINE (1 of 2) 1995 RSV VACCINE (60+ or ) (1 - 1-dose 75+ series) 2020 INFLUENZA VACCINE (#1) 2025 Procedures Procedure Name Priority Date/Time Associated Diagnosis Comments COMPREHENSIVE METABOLIC PANEL Routine 08/08/2025 12:50 PM CDT CBC WITH AUTODIFFERENTIAL Routine 2024 12:34 PM CDT from Last 3 Months Results * COMPREHENSIVE METABOLIC PANEL (08/08/2025 12:50 PM CDT) Blood Neel Baptiste MD CHEMISTRY ORDERABLES Final Resu lt * CBC WITH AUTODIFFERENTIAL (08/08/2025 12:34 PM CDT) Blood Neel Baptiste MD HEMATOLOGY ORDERABLES Final Res ult from Last 3 Months Insurance [facility] [id number] Care Teams Regional Office Coordinator Relationship Specialty Start Date End Date Joseph Zhang MD [address] [facility] [address] [place] [address] PCP - General Family Practice 02/25/23
--- OUTSIDE RECORDS SUMMARY | 2025-09-14 17:20 | XMS_ITS | Clinical Summary ---
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 CUTTING MACHINE OPERATOR Gender Identity Not on file Sexual Orientation Not on file Last Filed Vital Signs Vital Sign Reading Time Taken Comments Blood Pressure - - Pulse - - Temperature - - Respiratory Rate - - Oxygen Saturation - - Inhaled Oxygen Concentration - - Weight 74.4 kg (164 lb) 11/24/2022 5:12 PM SAND CUTTING MACHINE OPERATOR Height 180.3 cm (5' 11) 11/24/2022 5:12 PM SAND CUTTING MACHINE OPERATOR Body Mass Index 22.87 11/24/2022 5:12 PM SAND CUTTING MACHINE OPERATOR Plan of Treatment Health Maintenance Due Date [...] - Td or Tdap) 03/26/2032 03/26/2022 Insurance [facility] Care Teams Non Food Receiving Clerk Relationship Specialty Start Date End Date Joseph Zhang MD [address] [facility] [address] [facility] [address] [place] [address] PCP - General Family Medicine 09/02/22
== END 2025-09-14 08:31 | disposition home or self-care (01) ==
PROVIDERS: PCP Family Medicine; Visit Provider Nurse Practitioner
DX: K74.60 Unspecified cirrhosis of liver (principal)
CPT/HCPCS: 36415; 76705; 80053; 85027